=== PATIENT | male | born 1970 | race Caucasian/White ===

== ENCOUNTER 2021-04-03 13:36 | Inpatient (IN) | payer OTHER, SELFPAY ==
[2021-04-03 13:45] VITALS: BP 143/88; PULSE 89; RESP 18; TEMP 36.8; O2SAT 96; BMI 28.1
--- NOTE | 2021-04-03 13:48 | ECG_ITS ---
Test Reason : MED CLEARANCE Blood Pressure : / mmHG Vent. Rate : 069 BPM Atrial Rate : 069 BPM P-R Int : 166 ms QRS Dur : 106 ms QT Int : 388 ms P-R-T Axes : 046 077 067 degrees QTc Int : 415 ms Normal sinus rhythm Incomplete right bundle branch block Borderline ECG No previous ECGs available Referred By: Bianca Gallardo Electronically Signed By:SILVIO JOHNSON
--- NOTE | 2021-04-03 13:52 | ED_ITS ---
HPI - Psych General Chief Complaint: Psychiatric Symptoms <Bianca Gallardo NP - Last Filed: 04/03/21 17:34> Stated Complaint: crisis <Bianca Gallardo NP - Last Filed: 04/03/21 17:34> Time Seen by Provider: 04/03/21 13:41 <Bianca Gallardo NP - Last Filed: 04/03/21 17:34> Source: patient <Bianca Gallardo NP - Last Filed: 04/03/21 17:34> Mode of arrival: ambulatory <Bianca Gallardo NP - Last Filed: 04/03/21 17:34> Limitations: no limitations <Bianca Gallardo NP - Last Filed: 04/03/21 17:34> History of Present Illness HPI Narrative: 51-year-old male with history of anxiety, depression, PTSD, hypertension, hypothyroidism here with reports of suicidal thoughts and depression. Patient tells me is a longstanding history of major depression disorder. Patient tells me for the last month he has had increasing symptoms and has been feeling suicidal during this time. He reports a plan but will not tell me what this is. He denies any homicidal ideations, hallucinations. He has a former history of substance abuse but is not currently using. He does smoke cigarettes daily. No physical complaints. He received Moderna vaccine x3 <Bianca Gallardo NP - Last Filed: 04/03/21 17:34> Related Data Home Medications: Home Medications Medication Instructions Recorded Confirmed aripiprazole 15 mg tablet 15 mg PO DAILY 04/03/21 04/03/21 clonidine HCl 0.1 mg tablet 1 tab PO BEDTIME 04/03/21 04/03/21 gabapentin 400 mg capsule 1 cap PO TID 04/03/21 04/03/21 levothyroxine 150 mcg tablet 150 mcg PO DAILY@0600 04/03/21 04/03/21 lisinopril 5 mg tablet 1 tab PO DAILY 04/03/21 04/03/21 lorazepam 0.5 mg tablet 1 tab PO TID PRN 04/03/21 04/03/21 omeprazole 20 mg capsule,delayed 1 cap PO BID 04/03/21 04/03/21 release prazosin 1 mg capsule 2 mg PO BEDTIME 04/03/21 04/03/21 prazosin 5 mg capsule 5 mg PO BEDTIME 04/03/21 04/03/21 sildenafil 100 mg tablet 1 tab PO DAILY PRN 04/03/21 04/03/21 tamsulosin 0.4 mg capsule 2 cap PO BEDTIME 04/03/21 04/03/21 trazodone 100 mg tablet 150 mg PO BEDTIME 04/03/21 04/03/21 venlafaxine 150 mg 150 mg PO DAILY 04/03/21 04/03/21 capsule,extended release 24 hr venlafaxine 37.5 mg 37.5 mg PO DAILY 04/03/21 04/03/21 tablet,extended release 24 hr <Bianca Gallardo NP - Last Filed: 04/03/21 17:34> Allergies/Adverse Reactions: Allergies Allergy/AdvReac Type Severity Reaction Status Date / Time Unable to Assess Allergy Verified 04/03/21 13:47 <Bianca Gallardo NP - Last Filed: 04/03/21 17:34> Review of Systems Verdana 4l Review of Systems: Verdana 4d Yes all other systems are reviewed and are negative Verdana 4Il <Bianca Gallardo NP - Last Filed: 04/03/21 17:34> Verdana 4d Verdana 4l Constitutional: Verdana 4d Verdana 4d Constitutional: Verdana 4d Reports no additional constitutional complaints, Denies body ache(s), Denies chills, Denies fever(s), Denies headache(s) and Denies weakness Verdana 4Il <Bianca Gallardo NP - Last Filed: 04/03/21 17:34> VerdanaVerdana 4d Eyes: Eyes: Reports no additional eye complaints and Denies change in vision <Bianca Gallardo NP - Last Filed: 04/03/21 17:34> ENT: Reports system reviewed and no additional complaints, except as documented, Denies dizziness, Denies headache(s), Denies nasal congestion, Denies nasal discharge and Denies neck pain <Bianca Gallardo NP - Last Filed: 04/03/21 17:34> Cardiovascular: Cardiovascular: Reports no additional cardiovascular complaints, Denies chest pain, Denies leg edema and Denies dyspnea <Bianca Gallardo NP - Last Filed: 04/03/21 17:34> Respiratory: Respiratory: Reports no additional respiratory complaints, Denies cough and Denies dyspnea <Bianca Gallardo NP - Last Filed: 04/03/21 17:34> Gastrointestinal: Gastrointestinal: Reports no additional gastrointestinal complaints, Denies abdominal pain, Denies diarrhea, Denies nausea and Denies vomiting <Bianca Gallardo NP - Last Filed: 04/03/21 17:34> Genitourinary: Genitourinary: Denies urinary incontinence <Bianca Gallardo NP - Last Filed: 04/03/21 17:34> Musculoskeletal: Musculoskeletal: Reports no additional musculoskeletal complaints, Denies back pain, Denies arthralgias, Denies joint swelling, Denies neck pain, Denies numbness and Denies tingling <Bianca Gallardo NP - Last Filed: 04/03/21 17:34> Integumentary/Breasts: Skin/Breast: Reports system reviewed and no additional complaints, except as doc u and Denies rash <Bianca Gallardo NP - Last Filed: 04/03/21 17:34> Neurologic: Reports system reviewed and no additional complaints, except as documented, Denies Abnormal speech present, Denies dizziness, Denies headache(s), Denies numbness, Denies tingling and Denies weakness <Bianca Gallardo NP - Last Filed: 04/03/21 17:34> Psychiatric: Psychiatric: Reports depression and Reports suicidal ideation <Bianca Gallardo NP - Last Filed: 04/03/21 17:34> [facility] Past Medical History Attestation statement: The following information was validated with the patient. <Bianca Gallardo NP - Last Filed: 04/03/21 17:34> Source: old records reviewed and nursing notes reviewed <Bianca Gallardo NP - Last Filed: 04/03/21 17:34> Medical History: Medical History Anxiety Depression Hypertension Hypothyroidism PTSD (post-traumatic stress disorder) <Bianca Gallardo NP - Last Filed: 04/03/21 17:34> Social History Social History: Social History Advance Directives: No Advance Directives Information Provided: Yes Healthcare Proxy: No Guardian: No <Bianca Gallardo NP - Last Filed: 04/03/21 17:34> Physical Exam Verdana 4l Vital Signs: Verdana 4d Verdana 4d Vital Signs: Verdana 4d Verdana 4Bd Last Vital Signs Verdana 4d Pharmacology Teacher New 4d Pharmacology Teacher New 4d Temp 97.6 F 04/04/21 08:01 Pharmacology Teacher New 4d Pulse 74 04/04/21 08:01 Pharmacology Teacher New 4d Resp 13 04/04/21 08:01 BP 113/78 04/04/21 08:01 Pulse Ox 98 04/04/21 08:01 BMI result Body Mass Index 28.1 <Bianca Gallardo NP - Last Filed: 04/03/21 17:34> Vital Signs: Last Vital Signs Temp 97.6 F 04/04/21 08:01 Pulse 74 04/04/21 08:01 Resp 13 04/04/21 08:01 BP 113/78 04/04/21 08:01 Pulse Ox 98 04/04/21 08:01 BMI result Body Mass Index 28.1 <CECILY Mott - Last Filed: 04/04/21 09:19> Const: General: cooperative, healthy appearing, comfortable and no acute distress <Bianca Gallardo NP - Last Filed: 04/03/21 17:34> Orientation/consciousness: patient oriented x3 <Bianca Gallardo NP - Last Filed: 04/03/21 17:34> Limitations: no limitations <Bianca Gallardo NP - Last Filed: 04/03/21 17:34> HENMT: Head: Yes normal to inspection <Bianca Gallardo NP - Last Filed: 04/03/21 17:34> Ears: hearing grossly normal bilaterally <Bianca Gallardo NP - Last Filed: 04/03/21 17:34> General nose exam: Normal external nose present <Bianca Gallardo NP - Last Filed: 04/03/21 17:34> Face and sinus: Yes normal facial exam <Bianca Gallardo NP - Last Filed: 04/03/21 17:34> Mouth: Normal oral and palatal mucosa present <Bianca Gallardo NP - Last Filed: 04/03/21 17:34> Throat: Yes posterior oropharynx normal <Bianca Gallardo NP - Last Filed: 04/03/21 17:34> Eyes: General: appearance normal, both eyes and all related structures <Bianca Gallardo NP - Last Filed: 04/03/21 17:34> Pupils: Equal, round and reactive pupils present <Bianca Gallardo NP - Last Filed: 04/03/21 17:34> Neck: Neck: Yes normal visual inspection <Bianca Gallardo NP - Last Filed: 04/03/21 17:34> Chest: Chest palpation & inspection: normal inspection of the chest <Bianca Gallardo NP - Last Filed: 04/03/21 17:34> Resp: Effort & Inspection: normal respiratory effort <Bianca Gallardo NP - Last Filed: 04/03/21 17:34> Auscultation: clear to auscultation bilaterally <Bianca Gallardo NP - Last Filed: 04/03/21 17:34> Cardio: Rate: regular rate <Bianca Gallardo NP - Last Filed: 04/03/21 17:34> Rhythm: regular rhythm <Bianca Gallardo NP - Last Filed: 04/03/21 17:34> Peripheral pulses: Peripheral pulses 2+ throughout <Bianca Gallardo NP - Last Filed: 04/03/21 17:34> GI: Inspection: Yes normal to inspection <Bianca Gallardo NP - Last Filed: 04/03/21 17:34> Palpation (GI): Soft to palpation and nontender <Bianca Gallardo NP - Last Filed: 04/03/21 17:34> Auscultation: normal bowel sounds <Bianca Gallardo NP - Last Filed: 04/03/21 17:34> Back/Spine/Pelvis: Thoracic/Lumbar Spine: thoracic and lumbar spine normal to inspection <Bianca Gallardo NP - Last Filed: 04/03/21 17:34> Skin: General skin exam: no rashes or lesions noted <Bianca Gallardo NP - Last Filed: 04/03/21 17:34> Neuro: General: patient oriented x3, no focal motor deficits and normal sensation to monofilament <Bianca Gallardo NP - Last Filed: 04/03/21 17:34> Cranial nerves: Yes CN's II-XII intact bilaterally and Yes Equal, round and reactive pupils present <Bianca Gallardo NP - Last Filed: 04/03/21 17:34> Cognition (Neuro): normal cognition <Bianca Gallardo NP - Last Filed: 04/03/21 17:34> Speech: No Abnormal speech present <Bianca Gallardo NP - Last Filed: 04/03/21 17:34> Gait exam (Neuro): Normal gait present <Bianca Gallardo NP - Last Filed: 04/03/21 17:34> Motor exam (neuro): 5/5 motor strength present throughout <Bianca Gallardo NP - Last Filed: 04/03/21 17:34> Extrem: General: Yes normal to inspection <Bianca Gallarod NP - Last Filed: 04/03/21 17:34> Course Course Course Narrative: 51-year-old male here with reports of depression, suicidal thoughts with a plan. Per patient he was an outpatient appointment for a a evaluation to start ECT therapy. He was sent to the ER after reporting suicidal ideations. No physical complaints. No concern for acute ingestion or trauma. Will check labs, drug screen 1800-Sign out to night team pending [facility] evaluation. <Bianca Gallardo NP - Last Filed: 04/03/21 17:34> Reevaluation(s) Reevaluation #1: Vital signs are stable. Phsycian observation continued. patient is a section 12 and bedsearch. <CECILY Mott - Last Filed: 04/04/21 09:19> Time: 09:19 <CECILY Mott - Last Filed: 04/04/21 09:19> MDM - Psych Medical Records Attestation: I reviewed the patient's medical records. <Bianca Gallardo NP - Last Filed: 04/03/21 17:34> Lab Data Attestation: I reviewed the patient's lab results. <Bianca Gallardo NP - Last Filed: 04/03/21 17:34> Result diagrams: : 04/03/21 14:24 04/03/21 14:25 <Bianca Gallardo NP - Last Filed: 04/03/21 17:34> Labs: Lab Results 04/03/21 04/03/21 04/03/21 Range/Units 14:24 14:24 14:25 WBC 7.4 (4.8-10.8) X10*3/uL RBC 5.46 (4.60-5.80) X10*6/uL Hgb 17.7 (14.0-18.0) g/dl Hct 51.9 (42.0-52.0) % MCV 95.1 (80.0-98.0) fL MCH 32.4 (27.0-33.0) pg MCHC 34.1 (31.0-36.0) g/dl RDW 13.0 (11.0-16.0) % Plt Count 181 (160-400) X10*3/uL MPV 9.9 (9.4-12.4) fL Immature Gran % (Auto) 0.4 (0.0-0.4) % Neut % (Auto) 48.2 (45-73) % Lymph % (Auto) 45.0 H (20-40) % [place] % (Auto) 5.9 (2-11) % Eos % (Auto) 0.1 (0-4) % Baso % (Auto) 0.4 (0-2) % Lymph # (Auto) 3.3 (1.2-4.9) X10*3/uL [place] # (Auto) 0.4 (0.1-1.2) X10*3/uL Eos # (Auto) 0.0 (0.0-0.4) X10*3/uL Baso # (Auto) 0.0 (0.0-0.2) X10*3/uL Abs Immat Gran (auto) 0.03 (0.00-0.03) X10*3/uL Absolute Neuts (auto) 3.5 (2.0-8.3) x10*3/uL Absolute Nucleated RBC 0.000 (0.0-0.012) X10*3/uL Nucleated RBC % (auto) 0.0 (0.0-0.2) /100WBC Sodium 139 (135-145) mmol/L Potassium 4.1 (3.3-5.1) mmol/L Chloride 107 (96-108) mmol/L Carbon Dioxide 25 (22-29) mmol/L Anion Gap 11 L (12-20) BUN 12 (9-16) mg/dL Creatinine 1.04 (0.5-1.4) mg/dL Estim Creat Clear Calc 88.6 Estimated GFR > 60 Random Glucose 194 H (60-115) mg/dL Calcium 9.2 (8.4-10.2) mg/dL Total Bilirubin 0.3 (0.0-1.0) mg/dL Direct Bilirubin < 0.2 (0.0-0.5) mg/dL AST 27 (5-37) U/L ALT 63 H (0-40) U/L Alkaline Phosphatase 96 (39-117) U/L Total Protein 6.9 (6.5-8.0) g/dL Albumin 4.2 (3.5-5.0) g/dL Salicylates < 5.0 L (15-30) mg/dL Urine Opiates Screen (Not Detect) Urine Fentanyl Screen (Not Detect) Acetaminophen < 1 (<30) mcg/mL Ur Barbiturates Screen (Not Detect) Ur Phencyclidine Scrn (Not Detect) Ur Amphetamines Screen (Not Detect) U Benzodiazepines Scrn (Not Detect) Urine Cocaine Screen (Not Detect) U Marijuana (THC) Screen (Not Detect) Ethyl Alcohol < 10 mg/dL COVID-19 ([facility]) (Negative) COVID-19 Clin Com 04/03/21 04/03/21 Range/Units 14:25 14:27 WBC (4.8-10.8) X10*3/uL RBC (4.60-5.80) X10*6/uL Hgb (14.0-18.0) g/dl Hct (42.0-52.0) % MCV (80.0-98.0) fL MCH (27.0-33.0) pg MCHC (31.0-36.0) g/dl RDW (11.0-16.0) % Plt Count (160-400) X10*3/uL MPV (9.4-12.4) fL Immature Gran % (Auto) (0.0-0.4) % Neut % (Auto) (45-73) % Lymph % (Auto) (20-40) % [place] % (Auto) (2-11) % Eos % (Auto) (0-4) % Baso % (Auto) (0-2) % Lymph # (Auto) (1.2-4.9) X10*3/uL [place] # (Auto) (0.1-1.2) X10*3/uL Eos # (Auto) (0.0-0.4) X10*3/uL Baso # (Auto) (0.0-0.2) X10*3/uL Abs Immat Gran (auto) (0.00-0.03) X10*3/uL Absolute Neuts (auto) (2.0-8.3) x10*3/uL Absolute Nucleated RBC (0.0-0.012) X10*3/uL Nucleated RBC % (auto) (0.0-0.2) /100WBC Sodium (135-145) mmol/L Potassium (3.3-5.1) mmol/L Chloride (96-108) mmol/L Carbon Dioxide (22-29) mmol/L Anion Gap (12-20) BUN (9-16) mg/dL Creatinine (0.5-1.4) mg/dL Estim Creat Clear Calc Estimated GFR Random Glucose (60-115) mg/dL Calcium (8.4-10.2) mg/dL Total Bilirubin (0.0-1.0) mg/dL Direct Bilirubin (0.0-0.5) mg/dL AST (5-37) U/L ALT (0-40) U/L Alkaline Phosphatase (39-117) U/L Total Protein (6.5-8.0) g/dL Albumin (3.5-5.0) g/dL Salicylates (15-30) mg/dL Urine Opiates Screen Not Detected (Not Detect) Urine Fentanyl Screen POSITIVE H (Not Detect) Acetaminophen (<30) mcg/mL Ur Barbiturates Screen Not Detected (Not Detect) Ur Phencyclidine Scrn Not Detected (Not Detect) Ur Amphetamines Screen Not Detected (Not Detect) U Benzodiazepines Scrn Not Detected (Not Detect) Urine Cocaine Screen Not Detected (Not Detect) U Marijuana (THC) Screen POSITIVE H (Not Detect) Ethyl Alcohol mg/dL COVID-19 ([facility]) Negative (Negative) COVID-19 Clin Com See Note <Bianca Gallardo NP - Last Filed: 04/03/21 17:34> Lab Results 04/03/21 04/03/21 04/03/21 Range/Units 14:24 14:24 14:25 WBC 7.4 (4.8-10.8) X10*3/uL RBC 5.46 (4.60-5.80) X10*6/uL Hgb 17.7 (14.0-18.0) g/dl Hct 51.9 (42.0-52.0) % MCV 95.1 (80.0-98.0) fL MCH 32.4 (27.0-33.0) pg MCHC 34.1 (31.0-36.0) g/dl RDW 13.0 (11.0-16.0) % Plt Count 181 (160-400) X10*3/uL MPV 9.9 (9.4-12.4) fL Immature Gran % (Auto) 0.4 (0.0-0.4) % Neut % (Auto) 48.2 (45-73) % Lymph % (Auto) 45.0 H (20-40) % [place] % (Auto) 5.9 (2-11) % Eos % (Auto) 0.1 (0-4) % Baso % (Auto) 0.4 (0-2) % Lymph # (Auto) 3.3 (1.2-4.9) X10*3/uL [place] # (Auto) 0.4 (0.1-1.2) X10*3/uL Eos # (Auto) 0.0 (0.0-0.4) X10*3/uL Baso # (Auto) 0.0 (0.0-0.2) X10*3/uL Abs Immat Gran (auto) 0.03 (0.00-0.03) X10*3/uL Absolute Neuts (auto) 3.5 (2.0-8.3) x10*3/uL Absolute Nucleated RBC 0.000 (0.0-0.012) X10*3/uL Nucleated RBC % (auto) 0.0 (0.0-0.2) /100WBC Sodium 139 (135-145) mmol/L Potassium 4.1 (3.3-5.1) mmol/L Chloride 107 (96-108) mmol/L Carbon Dioxide 25 (22-29) mmol/L Anion Gap 11 L (12-20) BUN 12 (9-16) mg/dL Creatinine 1.04 (0.5-1.4) mg/dL Estim Creat Clear Calc 88.6 Estimated GFR > 60 Random Glucose 194 H (60-115) mg/dL Calcium 9.2 (8.4-10.2) mg/dL Total Bilirubin 0.3 (0.0-1.0) mg/dL Direct Bilirubin < 0.2 (0.0-0.5) mg/dL AST 27 (5-37) U/L ALT 63 H (0-40) U/L Alkaline Phosphatase 96 (39-117) U/L Total Protein 6.9 (6.5-8.0) g/dL Albumin 4.2 (3.5-5.0) g/dL Salicylates < 5.0 L (15-30) mg/dL Urine Opiates Screen (Not Detect) Urine Fentanyl Screen (Not Detect) Acetaminophen < 1 (<30) mcg/mL Ur Barbiturates Screen (Not Detect) Ur Phencyclidine Scrn (Not Detect) Ur Amphetamines Screen (Not Detect) U Benzodiazepines Scrn (Not Detect) Urine Cocaine Screen (Not Detect) U Marijuana (THC) Screen (Not Detect) Ethyl Alcohol < 10 mg/dL COVID-19 ([facility]) (Negative) COVID-19 Clin Com 04/03/21 04/03/21 Range/Units 14:25 14:27 WBC (4.8-10.8) X10*3/uL RBC (4.60-5.80) X10*6/uL Hgb (14.0-18.0) g/dl Hct (42.0-52.0) % MCV (80.0-98.0) fL MCH (27.0-33.0) pg MCHC (31.0-36.0) g/dl RDW (11.0-16.0) % Plt Count (160-400) X10*3/uL MPV (9.4-12.4) fL Immature Gran % (Auto) (0.0-0.4) % Neut % (Auto) (45-73) % Lymph % (Auto) (20-40) % [place] % (Auto) (2-11) % Eos % (Auto) (0-4) % Baso % (Auto) (0-2) % Lymph # (Auto) (1.2-4.9) X10*3/uL [place] # (Auto) (0.1-1.2) X10*3/uL Eos # (Auto) (0.0-0.4) X10*3/uL Baso # (Auto) (0.0-0.2) X10*3/uL Abs Immat Gran (auto) (0.00-0.03) X10*3/uL Absolute Neuts (auto) (2.0-8.3) x10*3/uL Absolute Nucleated RBC (0.0-0.012) X10*3/uL Nucleated RBC % (auto) (0.0-0.2) /100WBC Sodium (135-145) mmol/L Potassium (3.3-5.1) mmol/L Chloride (96-108) mmol/L Carbon Dioxide (22-29) mmol/L Anion Gap (12-20) BUN (9-16) mg/dL Creatinine (0.5-1.4) mg/dL Estim Creat Clear Calc Estimated GFR Random Glucose (60-115) mg/dL Calcium (8.4-10.2) mg/dL Total Bilirubin (0.0-1.0) mg/dL Direct Bilirubin (0.0-0.5) mg/dL AST (5-37) U/L ALT (0-40) U/L Alkaline Phosphatase (39-117) U/L Total Protein (6.5-8.0) g/dL Albumin (3.5-5.0) g/dL Salicylates (15-30) mg/dL Urine Opiates Screen Not Detected (Not Detect) Urine Fentanyl Screen POSITIVE H (Not Detect) Acetaminophen (<30) mcg/mL Ur Barbiturates Screen Not Detected (Not Detect) Ur Phencyclidine Scrn Not Detected (Not Detect) Ur Amphetamines Screen Not Detected (Not Detect) U Benzodiazepines Scrn Not Detected (Not Detect) Urine Cocaine Screen Not Detected (Not Detect) U Marijuana (THC) Screen POSITIVE H (Not Detect) Ethyl Alcohol mg/dL COVID-19 ([facility]) Negative (Negative) COVID-19 Clin Com See Note <CECILY Mott - Last Filed: 04/04/21 09:19> ECG Data Attestation: I personally reviewed and interpreted this ECG as follows: <Bianca Gallardo NP - Last Filed: 04/03/21 17:34> ECG interpretation date: 04/03/21 <Bianca Gallardo NP - Last Filed: 04/03/21 17:34> ECG interpretation time: 14:47 <Bianca Gallardo NP - Last Filed: 04/03/21 17:34> Interpretation: Normal sinus rhythm with a rate of 69, normal UT, normal QRS, normal QT <Bianca Gallardo NP - Last Filed: 04/03/21 17:34> Discharge Plan Discharge Clinical Impression: Acute post-traumatic stress disorder, Depression <Bianca Gallardo NP - Last Filed: 04/03/21 17:34> Patient Disposition: Still a Patient <Bianca Gallardo NP - Last Filed: 04/03/21 17:34> Prescriptions: No Action clonidine HCl 0.1 mg tablet 1 tab PO BEDTIME 0RF prazosin 1 mg capsule 2 mg PO BEDTIME 0RF gabapentin 400 mg capsule 1 cap PO TID 0RF venlafaxine 150 mg Capsule,Extended Release 24hr 150 mg PO DAILY 0RF sildenafil 100 mg tablet 1 tab PO DAILY PRN (Reason: Sexual Activity) 0RF prazosin 5 mg capsule 5 mg PO BEDTIME 0RF lorazepam 0.5 mg tablet 1 tab PO TID PRN (Reason: Anxiety) 0RF tamsulosin 0.4 mg capsule 2 cap PO BEDTIME 0RF trazodone 100 mg tablet 150 mg PO BEDTIME 0RF levothyroxine 150 mcg Tablet 150 mcg PO DAILY@0600 0RF lisinopril 5 mg tablet 1 tab PO DAILY 0RF aripiprazole 15 mg tablet 15 mg PO DAILY 0RF venlafaxine 37.5 mg Tablet Extended Release 24hr 37.5 mg PO DAILY 0RF omeprazole 20 mg capsule,delayed release(DR/EC) 1 cap PO BID 0RF <Bianca Gallardo, UNIT RECEPTIONIST - Last Filed: 04/03/21 17:34>
[2021-04-03] MEDS: Nicotine 21 MG PATCH.TD24 TRANSDERMA (13:57)
[2021-04-03 14:34] LABS: MANUAL DIFF FLAG NO
[2021-04-03 14:38] LABS: Basophils Percent Auto 0.4 % (0-2); Eosinophils Percent Auto 0.1 % (0-4); Hematocrit 51.9 % (42.0-52.0); Hemoglobin 17.7 g/dl (14.0-18.0); Imm Gran Abs Auto 0.03 X10*3/uL (0.00-0.03); Imm Gran Pct Auto 0.4 % (0.0-0.4); Lymphocytes Absolute Auto 3.3 X10*3/uL (1.2-4.9); Mean Corpuscular HGB Conc 34.1 g/dl (31.0-36.0); Mean Corpuscular Hemoglobin 32.4 pg (27.0-33.0); Mean Corpuscular Volume 95.1 fL (80.0-98.0); Mean Platelet Volume 9.9 fL (9.4-12.4); Monocytes Absolute Auto 0.4 X10*3/uL (0.1-1.2); Monocytes Percent Auto 5.9 % (2-11); Neutrophils Absolute Auto 3.5 x10*3/uL (2.0-8.3); Neutrophils Percent Auto 48.2 % (45-73); Platelet Count 181 X10*3/uL (160-400); Red Blood Count 5.46 X10*6/uL (4.60-5.80); White Blood Count 7.4 X10*3/uL (4.8-10.8)
--- NOTE | 2021-04-03 14:47 | PHA.MEDREC ---
Pharmacy Consult ? Medication Reconciliation Pharmacy has completed the medication reconciliation. Patient reported all medications. Per claim history, prazosin 5 mg was only included but reports he take 2 mg in addition. Venlafaxine 75 mg was last filled in december he reports he takes 37.3 mg + 150 mg. History does not have levothyroxine but patient reported use. [facility] does not always show medications on claim history. Alina Lakhani, PharmD
[2021-04-03 14:52] LABS: Ethanol < 10 mg/dL
[2021-04-03 14:55] LABS: Amphetamine Screen Urine Not Detected (Not Detect); Barbiturates, Urine Not Detected (Not Detect); Benzodiazepines Screen Urine Not Detected (Not Detect); Cannabinoid Screen Urine POSITIVE (Not Detect); Cocaine Screen Urine Not Detected (Not Detect); Fentanyl, urine POSITIVE (Not Detect); Opiate Screen Urine Not Detected (Not Detect); Phencyclidine Screen Urine Not Detected (Not Detect)
[2021-04-03 14:55] LABS: COVID-19 Test Negative (Negative)
[2021-04-03 15:07] LABS: Acetaminophen LAB < 1 mcg/mL (<30); Alanine Aminotransferase 63 U/L (0-40); Albumin Level 4.2 g/dL (3.5-5.0); Alkaline Phosphatase 96 U/L (39-117); Anion Gap 11 (12-20); Aspartate Amino Transferase 27 U/L (5-37); Bilirubin Direct < 0.2 mg/dL (0.0-0.5); Bilirubin Total 0.3 mg/dL (0.0-1.0); Blood Urea Nitrogen 12 mg/dL (9-16); Calcium 9.2 mg/dL (8.4-10.2); Carbon Dioxide 25 mmol/L (22-29); Chloride 107 mmol/L (96-108); Creatinine Clr Calc Pharmacy 88.6; Estimated Glomerular Filt Rate > 60; Glucose Random 194 mg/dL (60-115); Potassium 4.1 mmol/L (3.3-5.1); Sodium 139 mmol/L (135-145); Total Protein 6.9 g/dL (6.5-8.0)
[2021-04-03 15:20] LABS: Salicylate < 5.0 mg/dL (15-30)
[2021-04-03 19:25] VITALS: BP 122/83; PULSE 82; RESP 17; TEMP 36.2; O2SAT 98
[2021-04-03] MEDS: LORazepam 0.5 MG TABLET PO (23:16)
[2021-04-03] MEDS: traZODone HCL 50 MG TABLET 150 MG PO (23:16)
[2021-04-03] MEDS: Tamsulosin HCL 0.4 MG CAPSULE 0.8 MG PO (23:16)
[2021-04-03] MEDS: cloNIDine HCL 0.1 MG TABLET PO (23:16)
[2021-04-03] MEDS: Prazosin HCL 1 MG CAPSULE 2 MG PO (23:17)
[2021-04-03] MEDS: Prazosin HCL 5 MG CAPSULE PO (23:17)
[2021-04-03 23:19] VITALS: BP 121/92; PULSE 63; RESP 16; TEMP 36.9; O2SAT 96
--- NOTE | 2021-04-04 05:18 | PC.NURSE ---
Patient slept through the night, no distress observed/reported, behavior appropriate and cooperative, medication compliant, patient's disposition per Care team is section 12 inpatient bed search, VSS, will continue to monitor.
[2021-04-04] MEDS: Levothyroxine Sodium 150 MCG TABLET PO (06:18)
--- NOTE | 2021-04-04 07:06 | PC.NURSE ---
patient awake upon t/w's arrival to shift, watching television and relaxing appears in no distress
[2021-04-04 08:01] VITALS: BP 113/78; PULSE 74; RESP 13; TEMP 36.4; O2SAT 98
[2021-04-04] MEDS: Omeprazole 20 MG CAPSULE.DR PO ×2 (10:17→20:43)
[2021-04-04] MEDS: Venlafaxine HCl ER 37.5 MG CAP.ER.24H PO (10:17)
[2021-04-04] MEDS: ARIPiprazole 15 MG TABLET PO (10:17)
[2021-04-04] MEDS: lisinopriL 5 MG TABLET PO (10:17)
[2021-04-04] MEDS: Gabapentin 400 MG CAPSULE PO ×3 (10:18→20:42)
[2021-04-04] MEDS: Venlafaxine HCl ER 150 MG CAP.ER.24H PO (10:18)
[2021-04-04 11:18] LABS: COVID-19 Test Negative (Negative)
--- NOTE | 2021-04-04 13:28 | MHC.CARE ---
Patient ambivalent about inpatient admission, asked to speak to someone about going home instead. CARE rail crew member sat with patient in 1 to discuss his concerns, offered supportive listening and encouragement, gave him some specific information about the unit (groups, roommates, his treatment team), has only been to [facility] in the past. Apparently the POD was acute last night and this was unsettling, he acknowledged that nothing has changed in his personal situation, he is still quite depressed and hopeless. Patient verbalized an understanding that at this time this is the best plan and he is open to admission, will sign in voluntarily.
--- NOTE | 2021-04-04 19:02 | PC.ADMIT ---
Pt is a 51 year old male who presents to M5 from [facility] at approx 1625 on a cv status. Pt is covid -. Utox screen + for fentanyl, and THC. EKG normal sinus rhythm, Inc R bundle block. Per chart review, pt was assessed by CARE team after being sent to the ED due to suicidal statements made in an outpatient appoinment with psychiatry. Pt is at high risk and has a hx of past suicide attempts, lots of plans to commit sucude, and feels like he cannot live like this. During admit pt had a flat affect, denied any SI/SIB/SI/HI/VH/AH. Pt reported high anxiety and depression. Pt mentioned that lives with his , children and four dogs. Pt has hx of outpt services in the community. Provider called and notified for orders and notified of admission. Start treatment plan and monitor for safety.
[2021-04-04 20:25] VITALS: BP 133/78; PULSE 78
[2021-04-04] MEDS: Tamsulosin HCL 0.4 MG CAPSULE 0.8 MG PO (20:42)
[2021-04-04] MEDS: cloNIDine HCL 0.1 MG TABLET PO (20:42)
[2021-04-04] MEDS: traZODone HCL 50 MG TABLET 150 MG PO (20:42)
[2021-04-04] MEDS: Prazosin HCL 1 MG CAPSULE 2 MG PO (20:43)
[2021-04-04] MEDS: Prazosin HCL 5 MG CAPSULE PO (20:43)
[2021-04-05 06:00] VITALS: BP 121/78; PULSE 69; TEMP 36.1; O2SAT 95
[2021-04-05] MEDS: Levothyroxine Sodium 75 MCG TABLET 150 MCG PO (06:02)
[2021-04-05] MEDS: Gabapentin 400 MG CAPSULE PO (08:43)
[2021-04-05] MEDS: ARIPiprazole 15 MG TABLET PO (08:43)
[2021-04-05] MEDS: Venlafaxine HCl ER 150 MG CAP.ER.24H PO (08:43)
[2021-04-05] MEDS: Venlafaxine HCl ER 37.5 MG CAP.ER.24H PO (08:43)
[2021-04-05] MEDS: lisinopriL 5 MG TABLET PO (08:43)
[2021-04-05] MEDS: Omeprazole 20 MG CAPSULE.DR PO ×2 (08:43→20:26)
[2021-04-05 09:11] LABS: Estimated Average Glucose 160 mg/dL; Hemoglobin A1c % 7.2 %
[2021-04-05 09:43] LABS: Cholesterol 182 mg/dL; HDL Cholesterol 30 mg/dL; LDL Cholesterol Calculated 110 mg/dl; Triglycerides 211 mg/dL
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
[2021-04-05] MEDS: Gabapentin 100 MG CAPSULE PO ×2 (16:28→20:26)
[2021-04-05 20:18] VITALS: BP 126/71; PULSE 85; RESP 16; TEMP 37.1
[2021-04-05] MEDS: traZODone HCL 50 MG TABLET 150 MG PO (20:26)
[2021-04-05] MEDS: Prazosin HCL 1 MG CAPSULE 2 MG PO (20:26)
[2021-04-05] MEDS: Prazosin HCL 5 MG CAPSULE PO (20:26)
[2021-04-05] MEDS: cloNIDine HCL 0.1 MG TABLET PO (20:26)
[2021-04-05] MEDS: Tamsulosin HCL 0.4 MG CAPSULE 0.8 MG PO (20:27)
[2021-04-05 22:46] LABS: Glucose, Whole Blood 192 mg/dL (60-115)
[2021-04-06] MEDS: Levothyroxine Sodium 75 MCG TABLET 150 MCG PO (05:23)
[2021-04-06 05:43] LABS: Glucose, Whole Blood 145 mg/dL (60-115)
[2021-04-06 06:00] VITALS: BP 121/74; PULSE 71; RESP 16; O2SAT 95
[2021-04-06] MEDS: hydrOXYzine HCL 25 MG TABLET PO ×2 (06:10→18:23)
[2021-04-06] MEDS: ARIPiprazole 10 MG TABLET PO (08:26)
[2021-04-06] MEDS: Venlafaxine HCl ER 150 MG CAP.ER.24H PO (08:26)
[2021-04-06] MEDS: Omeprazole 20 MG CAPSULE.DR PO ×2 (08:26→22:39)
[2021-04-06] MEDS: lisinopriL 5 MG TABLET PO (08:26)
[2021-04-06] MEDS: Gabapentin 100 MG CAPSULE PO ×3 (08:26→21:14)
[2021-04-06] MEDS: Nicotine 21 MG PATCH.TD24 TRANSDERMA (08:40)
[2021-04-06] MEDS: Nicotine Polacrilex 2 MG GUM 4 MG BUCCAL (14:34)
--- NOTE | 2021-04-06 14:50 | PC.NURSE ---
Pt participated in MOCA screen on 04/06/2021 prior to ECT tomorrow. The pt scored 28/30, indicating cognition is within normal limits. 1 point was added to score given that pt highest level of education was grade 12.
--- NOTE | 2021-04-06 15:13 | PM.EVENT ---
Event Note Date of Service: 04/06/21 Event Note: 51-year-old gentleman with past medical history of anxiety depression PTSD, hypothyroidism and hypertension admitted to [place] psychiatric unit for suicidal thoughts and depression now planned to undergo ECT patient denies chest pain, no shortness of breath, no palpitation, no prior history of heart disease, he denies any recent episodes of headache, lightheadedness, dizziness, no history of head trauma, or stroke. denies nausea vomiting, no history of bleeding disorders on examination patient awake alert in no distress neck is supple lungs clear to auscultation heart regular, rate, rhythm extremities no edema neuro nonfocal EKG showed normal sinus rhythm with incomplete right bundle-branch block, electrolytes are stable, normal renal function, mildly elevated ALT 63 ECT clearance may proceed with planned ECT no contraindications at this time, no further workup warranted.
[2021-04-06 18:00] VITALS: BP 135/89; PULSE 99; RESP 18; TEMP 36.6; O2SAT 96
[2021-04-06 19:37] LABS: Glucose, Whole Blood 190 mg/dL (60-115)
[2021-04-06] MEDS: traZODone HCL 50 MG TABLET 150 MG PO (21:09)
[2021-04-06] MEDS: Tamsulosin HCL 0.4 MG CAPSULE 0.8 MG PO (21:10)
[2021-04-06] MEDS: cloNIDine HCL 0.1 MG TABLET PO (21:13)
[2021-04-06] MEDS: Prazosin HCL 5 MG CAPSULE PO (21:14)
[2021-04-06] MEDS: Prazosin HCL 1 MG CAPSULE 2 MG PO (21:15)
--- NOTE | 2021-04-06 21:53 | P.PNPSI_ITS ---
Subjective Subjective Date of Service: 04/06/21 Reason For Visit: Depression,SI Subjective Notes: Conditional Voluntary Guardianship: No Interim History: pt depressed anxious dealing with issues related to recent emotional affair. Patient continues to consent to ECT with history of failed medication trials patient cooperative on the unit not agitated Medication Compliance: Yes Side effects from medications: No Review of Systems Acute medical concerns: Yes increase glu Mental Status Exam Mental Status Exam Narrative: Patient is an anxious-appearing male cooperative to the interview. . His speech is clear goal-directed logical normal [place]. His mood is depressed anxious affect constricted no agitation He is hopeless helpless with thoughts that he would be better off and unclear whether he can maintain his safety thoughts to overdose. No psychotic symptoms he is asking for help. Insight good in that he is asking for help able take in info re c ect Diagnostics Vital Signs (24Hr): Vital Signs - 24 hr 04/06/21 06:00 04/06/21 18:00 Temperature 97.9 F Pulse Rate 71 99 Respiratory Rate 16 18 Blood Pressure 121/74 135/89 Pulse Oximetry 95 96 BMI result Verdana 4 Body Mass Index Verdana 4 28.1 Verdana 4 Verdana 4 Labs Results: 04/03/21 14:24 04/03/21 14:25 Labs: Laboratory Results - last 48 hr 04/05/21 04/05/21 04/05/21 08:17 08:17 22:41 POC Glucose 192 H Estimat Average Glucose 160 Hemoglobin A1c % 7.2 Triglycerides 211 Cholesterol 182 LDL Cholesterol, Calc 110 HDL Cholesterol 30 04/06/21 04/06/21 05:39 19:30 POC Glucose 145 H 190 H Estimat Average Glucose Hemoglobin A1c % Triglycerides Cholesterol LDL Cholesterol, Calc HDL Cholesterol Medications Medications Current Medications Acetaminophen (Acetaminophen 325 Mg Tablet) 650 mg PO Q6H PRN PRN Reason: Headache/Pain Mild Scale (1-3) Al Hydroxide/Mg Hydroxide (Magnesium Hydrox/Alum Hydrox 30 Ml Oral.Susp) 30 ml PO Q6H PRN PRN Reason: Heartburn/Nausea Aripiprazole (Aripiprazole 10 Mg Tablet) 10 mg PO DAILY [facility] Last Admin: 04/06/21 08:26 Dose: 10 mg Documented by: Clonidine HCl (Clonidine Hcl 0.1 Mg Tablet) 0.1 mg PO BEDTIME [facility]; Protocol Last Admin: 04/06/21 21:13 Dose: 0.1 mg Documented by: Gabapentin (Gabapentin 100 Mg Capsule) 100 mg PO TID [facility] Last Admin: 04/06/21 21:14 Dose: 100 mg Documented by: Hydroxyzine HCl (Hydroxyzine Hcl 25 Mg Tablet) 25 mg PO QID PRN PRN Reason: Anxiety Last Admin: 04/06/21 18:23 Dose: 25 mg Documented by: Levothyroxine Sodium (Levothyroxine Sodium 75 Mcg Tablet) 150 mcg PO DAILY@0600 [facility] Last Admin: 04/06/21 05:23 Dose: 150 mcg Documented by: Lisinopril (Lisinopril 5 Mg Tablet) 5 mg PO DAILY [facility]; Protocol Last Admin: 04/06/21 08:26 Dose: 5 mg Documented by: Lorazepam (Lorazepam 0.5 Mg Tablet) 0.5 mg PO TID PRN PRN Reason: Anxiety Last Admin: 04/03/21 23:16 Dose: 0.5 mg Documented by: Magnesium Hydroxide (Milk Of Magnesia 30 Ml Oral.Susp) 30 ml PO DAILY PRN PRN Reason: Constipation Nicotine (Nicotine 21 Mg Patch.Td24) 21 mg TRANSDERMA DAILY PRN PRN Reason: smoking cessation Last Admin: 04/06/21 08:40 Dose: 21 mg Documented by: Nicotine Polacrilex (Nicotine Polacrilex 2 Mg Gum) 4 mg BUCCAL Q2H PRN PRN Reason: Nicotine Cravings Last Admin: 04/06/21 14:34 Dose: 4 mg Documented by: Omeprazole (Omeprazole 20 Mg Capsule.) 20 mg PO BID [facility] Last Admin: 04/06/21 08:26 Dose: 20 mg Documented by: Prazosin HCl (Prazosin Hcl 1 Mg Capsule) 2 mg PO BEDTIME [facility]; Protocol Last Admin: 04/06/21 21:15 Dose: 2 mg Documented by: Prazosin HCl (Prazosin Hcl 5 Mg Capsule) 5 mg PO BEDTIME [facility]; Protocol Last Admin: 04/06/21 21:14 Dose: 5 mg Documented by: Quetiapine Fumarate (Quetiapine Fumarate 25 Mg Tablet) 25 mg PO Q4H PRN PRN Reason: anxiety/restlessness Tamsulosin HCl (Tamsulosin Hcl 0.4 Mg Capsule) 0.8 mg PO BEDTIME [facility] Last Admin: 04/06/21 21:10 Dose: 0.8 mg Documented by: Trazodone HCl (Trazodone Hcl 50 Mg Tablet) 150 mg PO BEDTIME [facility] Last Admin: 04/06/21 21:09 Dose: 150 mg Documented by: Venlafaxine HCl (Venlafaxine Hcl Er 150 Mg Cap.Er.24h) 150 mg PO DAILY [facility] Last Admin: 04/06/21 08:26 Dose: 150 mg Documented by: Allergies Allergies Allergy/AdvReac Type Severity Reaction Status Date / Time NSAIDS AdvReac Severe Shakiness Verified 04/04/21 11:52 (Non-Steroidal Anti-Inflamma aspirin AdvReac Intermediate Shortness Verified 04/04/21 11:52 of Breath bupropion [From AdvReac Intermediate Agitated Verified 04/04/21 11:52 Wellbutrin] Assessment & Plan Assessment & Plan (1) Major depressive disorder, recurrent severe without psychotic features: Status: Acute Code(s): F33.2 - Major depressive disorder, recurrent severe without psychotic features Assessment and Plan: ect in am med eval discussed with hospitalist Case reviewed with nursing staff and social work also discussed medical issues with hospitalist (2) Hyperglycemia: Status: Acute Code(s): R73.9 - Hyperglycemia, unspecified Assessment and Plan: start metformin (3) Chronic post-traumatic stress disorder (PTSD): Status: Acute Code(s): F43.12 - Post-traumatic stress disorder, chronic Assessment and Plan: Continue prazosin grounding tech and techniques relaxation techniques Plan Patient with a history of recurrent depression multiple failed medication trials referred by Brian [facility] his psychiatric provider for ECT. Patient's condition complicated by agitation and suicidality unsafe to be treated home at this time. We did review option to continue to outpatient ECT when more stable. He has been tapering down on Abilify and venlafaxine. History of failed trials of augmentation with Seroquel multiple SSRIs doxepin patient is a candidate for ECT secondary to severe depression acute set suicidality and multiple failed medication trials. History of significant suicide attempts. PHQ-9 was elevated at 24 Medically patient with COPD hypothyroidism and hypertension. Noted to be hyperglycemic elevated hemoglobin A1c may be new diagnosis type 2 diabetes. Will get medical evaluation for ECT call placed to [facility] note reviewed labs and EKG reviewed history of right bundle branch block normal reported stress test. Patient admitted on conditional voluntary 15 minute safety checks will schedule ECT coordinate with the [place] social work for a family contact and intervention I spent _35 minutes with the patient and/or on the patient floor today, greater than?50% of which was spent counseling/coordinating care. Patient educated on: medication risk/benefits and ECT Reason for contiued inpatient stay Substantial Risk for: harm to self and rapid decompensation
[2021-04-07] VITALS (10 sets, daily range): BP systolic 112–143; BP diastolic 69–87; PULSE 62–91; RESP 14–25; TEMP 36.3–36.8; O2SAT 95–98; BMI 27.7
[2021-04-07 05:29] LABS: Glucose, Whole Blood 144 mg/dL (60-115)
--- NOTE | 2021-04-07 06:38 | HO.ANESPROP2 ---
[facility] Active Problems Active Problems: All Active Problems (Updated 04/05/21 @ 13:04 by Milton Ayala MD) Major depressive disorder, recurrent severe without psychotic features (Acute) Chronic post-traumatic stress disorder (PTSD) (Acute) Hyperglycemia (Acute) Depression (Acute) Past Medical History Medical History (Updated 04/05/21 @ 13:04 by Milton Ayala MD) Acute post-traumatic stress disorder Anxiety Chronic post-traumatic stress disorder (PTSD) Depression Hypertension Hypothyroidism Major depressive disorder, recurrent severe without psychotic features PTSD (post-traumatic stress disorder) Family History Family history of problems with anesthesia: No Surgical History History of Problems with Anesthesia: No Social History Social History Household Members: Family Housing: House Do you presently have visiting nurse or other home services: No Patient Tobacco Use Status: Current everyday Tobacco user Tobacco use type: Cigarette Cigarette Packs Per Day: 1 Cigarettes Per Day: 20.0 Years Smoked: 10+ Smoked in Last 30 Days: Yes Patient Interested in Nicotine Replacement: Yes Patient Given Instructions on How to Stop Smoking: Yes Date Education Initiated: 04/04/21 Second Hand Smoke Exposure: Yes Use of substances other than those prescribed or required for medical reasons: Yes Substance Use Type: Marijuana Substance Use Frequency: Daily Last Used Substance: Just Prior to Admission Currently Displaying Signs/Symptoms of Drug Intoxication Withdrawal: No Any prior treatment program specific to substance use: No Have you been hit, kicked, punched, or otherwise hurt by someone within the past year? If so, by whom?: No Do you feel safe in your current relationship?: Yes Is there a partner from a previous relationship who is making you feel unsafe now?: No Are you made to feel afraid or neglected: No Advance Directives: No Advance Directives Information Provided: Yes Healthcare Proxy: No Guardian: No Do you have thoughts of harming others: None Do you have a plan to hurt others: No Plan Recently lost weight without trying: No How much weight loss: Not applicable Eating poorly because of decreased appetite: No Nutrition screen score: 0 Nutrition Risks: No Nutritional Risk Poor oral hygiene: No service: Yes (Honorable discharge from Service as [place] [employer]) Sexual orientation: Did not discuss Meds Allergies Allergy/AdvReac Type Severity Reaction Status Date / Time NSAIDS (Non-Steroidal AdvReac Severe Shakiness Verified 04/04/21 11:52 Anti-Inflamma aspirin AdvReac Intermediate Shortness Verified 04/04/21 11:52 of Breath bupropion [From Wellbutrin] AdvReac Intermediate Agitated Verified 04/04/21 11:52 Active Medications: Current Medications Acetaminophen (Acetaminophen 325 Mg Tablet) 650 mg PO Q6H PRN PRN Reason: Headache/Pain Mild Scale (1-3) Al Hydroxide/Mg Hydroxide (Magnesium Hydrox/Alum Hydrox 30 Ml Oral.Susp) 30 ml PO Q6H PRN PRN Reason: Heartburn/Nausea Aripiprazole (Aripiprazole 10 Mg Tablet) 10 mg PO DAILY [facility] Last Admin: 04/06/21 08:26 Dose: 10 mg Documented by: Clonidine HCl (Clonidine Hcl 0.1 Mg Tablet) 0.1 mg PO BEDTIME [facility]; Protocol Last Admin: 04/06/21 21:13 Dose: 0.1 mg Documented by: Gabapentin (Gabapentin 100 Mg Capsule) 100 mg PO TID [facility] Last Admin: 04/06/21 21:14 Dose: 100 mg Documented by: Hydroxyzine HCl (Hydroxyzine Hcl 25 Mg Tablet) 25 mg PO QID PRN PRN Reason: Anxiety Last Admin: 04/06/21 18:23 Dose: 25 mg Documented by: Levothyroxine Sodium (Levothyroxine Sodium 75 Mcg Tablet) 150 mcg PO DAILY@0600 [facility] Last Admin: 04/06/21 05:23 Dose: 150 mcg Documented by: Lisinopril (Lisinopril 5 Mg Tablet) 5 mg PO DAILY [facility]; Protocol Last Admin: 04/06/21 08:26 Dose: 5 mg Documented by: Lorazepam (Lorazepam 0.5 Mg Tablet) 0.5 mg PO TID PRN PRN Reason: Anxiety Last Admin: 04/03/21 23:16 Dose: 0.5 mg Documented by: Magnesium Hydroxide (Milk Of Magnesia 30 Ml Oral.Susp) 30 ml PO DAILY PRN PRN Reason: Constipation Nicotine (Nicotine 21 Mg Patch.Td24) 21 mg TRANSDERMA DAILY PRN PRN Reason: smoking cessation Last Admin: 04/06/21 08:40 Dose: 21 mg Documented by: Nicotine Polacrilex (Nicotine Polacrilex 2 Mg Gum) 4 mg BUCCAL Q2H PRN PRN Reason: Nicotine Cravings Last Admin: 04/06/21 14:34 Dose: 4 mg Documented by: Omeprazole (Omeprazole 20 Mg Capsule.) 20 mg PO BID [facility] Last Admin: 04/06/21 22:39 Dose: 20 mg Documented by: Prazosin HCl (Prazosin Hcl 1 Mg Capsule) 2 mg PO BEDTIME [facility]; Protocol Last Admin: 04/06/21 21:15 Dose: 2 mg Documented by: Prazosin HCl (Prazosin Hcl 5 Mg Capsule) 5 mg PO BEDTIME [facility]; Protocol Last Admin: 04/06/21 21:14 Dose: 5 mg Documented by: Quetiapine Fumarate (Quetiapine Fumarate 25 Mg Tablet) 25 mg PO Q4H PRN PRN Reason: anxiety/restlessness Tamsulosin HCl (Tamsulosin Hcl 0.4 Mg Capsule) 0.8 mg PO BEDTIME [facility] Last Admin: 04/06/21 21:10 Dose: 0.8 mg Documented by: Trazodone HCl (Trazodone Hcl 50 Mg Tablet) 150 mg PO BEDTIME [facility] Last Admin: 04/06/21 21:09 Dose: 150 mg Documented by: Venlafaxine HCl (Venlafaxine Hcl Er 150 Mg Cap.Er.24h) 150 mg PO DAILY [facility] Last Admin: 04/06/21 08:26 Dose: 150 mg Documented by: Home Medications Medication Instructions Recorded Confirmed Last Taken Type aripiprazole 15 mg tablet 15 mg PO DAILY 04/03/21 04/03/21 04/03/21 History clonidine HCl 0.1 mg tablet 1 tab PO BEDTIME 04/03/21 04/03/21 04/02/21 History gabapentin 400 mg capsule 1 cap PO TID 04/03/21 04/03/21 04/03/21 History levothyroxine 150 mcg tablet 150 mcg PO DAILY@0600 04/03/21 04/03/21 04/03/21 History lisinopril 5 mg tablet 1 tab PO DAILY 04/03/21 04/03/21 04/03/21 History lorazepam 0.5 mg tablet 1 tab PO TID PRN 04/03/21 04/03/21 Unknown History omeprazole 20 mg capsule,delayed 1 cap PO BID 04/03/21 04/03/21 04/03/21 History release prazosin 1 mg capsule 2 mg PO BEDTIME 04/03/21 04/03/21 04/02/21 History prazosin 5 mg capsule 5 mg PO BEDTIME 04/03/21 04/03/21 04/02/21 History sildenafil 100 mg tablet 1 tab PO DAILY PRN 04/03/21 04/03/21 Unknown History tamsulosin 0.4 mg capsule 2 cap PO BEDTIME 04/03/21 04/03/21 04/02/21 History trazodone 100 mg tablet 150 mg PO BEDTIME 04/03/21 04/03/21 04/02/21 History venlafaxine 150 mg 150 mg PO DAILY 04/03/21 04/03/21 04/03/21 History capsule,extended release 24 hr venlafaxine 37.5 mg 37.5 mg PO DAILY 04/03/21 04/03/21 04/03/21 History tablet,extended release 24 hr Exam Exam Date and Time: April 07, [id number] Height,Weight and Vital Signs: Height 5 ft 8 in Weight 83.915 kg Last Vital Signs Temp 97.3 F 04/07/21 06:25 Pulse 62 04/07/21 06:25 Resp 16 04/07/21 06:25 BP 114/79 04/07/21 06:25 Pulse Ox 95 04/07/21 06:25 Pertinent Lab Results Pertinent Lab Results: Laboratory Tests 04/03/21 04/03/21 04/03/21 14:24 14:24 14:25 WBC 7.4 RBC 5.46 Hgb 17.7 Hct 51.9 MCV 95.1 MCH 32.4 MCHC 34.1 RDW 13.0 Plt Count 181 MPV 9.9 Immature Gran % (Auto) 0.4 Neut % (Auto) 48.2 Lymph % (Auto) 45.0 H [place] % (Auto) 5.9 Eos % (Auto) 0.1 Baso % (Auto) 0.4 Lymph # (Auto) 3.3 [place] # (Auto) 0.4 Eos # (Auto) 0.0 Baso # (Auto) 0.0 Abs Immat Gran (auto) 0.03 Absolute Neuts (auto) 3.5 Absolute Nucleated RBC 0.000 Nucleated RBC % (auto) 0.0 Sodium 139 Potassium 4.1 Chloride 107 Carbon Dioxide 25 Anion Gap 11 L BUN 12 Creatinine 1.04 Estim Creat Clear Calc 88.6 Estimated GFR > 60 POC Glucose Random Glucose 194 H Estimat Average Glucose Hemoglobin A1c % Calcium 9.2 Total Bilirubin 0.3 Direct Bilirubin < 0.2 AST 27 ALT 63 H Alkaline Phosphatase 96 Total Protein 6.9 Albumin 4.2 Triglycerides Cholesterol LDL Cholesterol, Calc HDL Cholesterol Salicylates < 5.0 L Urine Opiates Screen Urine Fentanyl Screen Acetaminophen < 1 Ur Barbiturates Screen Ur Phencyclidine Scrn Ur Amphetamines Screen U Benzodiazepines Scrn Urine Cocaine Screen U Marijuana (THC) Screen Ethyl Alcohol < 10 COVID-19 ([facility]) COVID-19 Clin Com 04/03/21 04/03/21 04/04/21 14:25 14:27 10:50 WBC RBC Hgb Hct MCV MCH MCHC RDW Plt Count MPV Immature Gran % (Auto) Neut % (Auto) Lymph % (Auto) [place] % (Auto) Eos % (Auto) Baso % (Auto) Lymph # (Auto) [place] # (Auto) Eos # (Auto) Baso # (Auto) Abs Immat Gran (auto) Absolute Neuts (auto) Absolute Nucleated RBC Nucleated RBC % (auto) Sodium Potassium Chloride Carbon Dioxide Anion Gap BUN Creatinine Estim Creat Clear Calc Estimated GFR POC Glucose Random Glucose Estimat Average Glucose Hemoglobin A1c % Calcium Total Bilirubin Direct Bilirubin AST ALT Alkaline Phosphatase Total Protein Albumin Triglycerides Cholesterol LDL Cholesterol, Calc HDL Cholesterol Salicylates Urine Opiates Screen Not Detected Urine Fentanyl Screen POSITIVE H Acetaminophen Ur Barbiturates Screen Not Detected Ur Phencyclidine Scrn Not Detected Ur Amphetamines Screen Not Detected U Benzodiazepines Scrn Not Detected Urine Cocaine Screen Not Detected U Marijuana (THC) Screen POSITIVE H Ethyl Alcohol COVID-19 ([facility]) Negative Negative COVID-19 Clin Com See Note See Note 04/05/21 04/05/21 04/05/21 08:17 08:17 22:41 WBC RBC Hgb Hct MCV MCH MCHC RDW Plt Count MPV Immature Gran % (Auto) Neut % (Auto) Lymph % (Auto) [place] % (Auto) Eos % (Auto) Baso % (Auto) Lymph # (Auto) [place] # (Auto) Eos # (Auto) Baso # (Auto) Abs Immat Gran (auto) Absolute Neuts (auto) Absolute Nucleated RBC Nucleated RBC % (auto) Sodium Potassium Chloride Carbon Dioxide Anion Gap BUN Creatinine Estim Creat Clear Calc Estimated GFR POC Glucose 192 H Random Glucose Estimat Average Glucose 160 Hemoglobin A1c % 7.2 Calcium Total Bilirubin Direct Bilirubin AST ALT Alkaline Phosphatase Total Protein Albumin Triglycerides 211 Cholesterol 182 LDL Cholesterol, Calc 110 HDL Cholesterol 30 Salicylates Urine Opiates Screen Urine Fentanyl Screen Acetaminophen Ur Barbiturates Screen Ur Phencyclidine Scrn Ur Amphetamines Screen U Benzodiazepines Scrn Urine Cocaine Screen U Marijuana (THC) Screen Ethyl Alcohol COVID-19 ([facility]) COVID-19 [employer] Com 04/06/21 04/06/21 04/07/21 05:39 19:30 05:25 WBC RBC Hgb Hct MCV MCH MCHC RDW Plt Count MPV Immature Gran % (Auto) Neut % (Auto) Lymph % (Auto) [place] % (Auto) Eos % (Auto) Baso % (Auto) Lymph # (Auto) [place] # (Auto) Eos # (Auto) Baso # (Auto) Abs Immat Gran (auto) Absolute Neuts (auto) Absolute Nucleated RBC Nucleated RBC % (auto) Sodium Potassium Chloride Carbon Dioxide Anion Gap BUN Creatinine Estim Creat Clear Calc Estimated GFR POC Glucose 145 H 190 H 144 H Random Glucose Estimat Average Glucose Hemoglobin A1c % Calcium Total Bilirubin Direct Bilirubin AST ALT Alkaline Phosphatase Total Protein Albumin Triglycerides Cholesterol LDL Cholesterol, Calc HDL Cholesterol Salicylates Urine Opiates Screen Urine Fentanyl Screen Acetaminophen Ur Barbiturates Screen Ur Phencyclidine Scrn Ur Amphetamines Screen U Benzodiazepines Scrn Urine Cocaine Screen U Marijuana (THC) Screen Ethyl Alcohol COVID-19 ([facility]) COVID-19 Clin Com Airway Mallampati Class: II TM Dist: >3cm Neck ROM: Full Denture: Upper and Lower Heart: rrr Lungs: cta Assessment and Plan Assessment Anesthesia Assessment: Anesthesia Plan Discussed and Chart Reviewed Final Anesthetic Review Family History of Problems with Anesthesia: No History of Problems with Anesthesia: No NPO: Yes ASA Class: III Final Preanesthetic Review: No Changes in Pt Med Stat, Meds/Allgs Chart Reviewed and Consent Obtained/Reviewed Patient Risk: Intermediate Procedure Risk: Intermediate Anesthetic Plan Anesthetic Plan: GA Disposition: Standard PACU
--- NOTE | 2021-04-07 07:10 | MHC.SHP ---
Pre-Procedural Eval Section A Date of Service: 04/07/21 The patient is an INPATIENT: Yes Changes since office visit: Yes New Medical Problems, Yes Changes in Medication and Yes Patient answered all questions; No Cold of Flu in the past 2 weeks The History & Physical has been completed within 30 days and I have reviewed it.: Yes Section B Chief Complaint: Depression,SI Allergies: Allergies Allergy/AdvReac Type Severity Reaction Status Date / Time NSAIDS (Non-Steroidal AdvReac Severe Shakiness Verified 04/04/21 11:52 Anti-Inflamma aspirin AdvReac Intermediate Shortness Verified 04/04/21 11:52 of Breath bupropion [From Wellbutrin] AdvReac Intermediate Agitated Verified 04/04/21 11:52 Plan I have reviewed the history and physical and performed a pertinent physical examination on my patient. No changes have occurred unless specified.
--- NOTE | 2021-04-07 07:10 | HO.ECTPROC ---
ECT Procedure Note Diagnosis/Treatment Date of Service: 04/07/21 Diagnosis: Major Depressive Disorder and Other (ptsd) Current Treatment Number: 1 Treatment: Series Interval Clinical Notes: pt med eval reviewed depressed constricted denies actice si metformin started ECT Settings Device: THYMATRON DGx Electrode Placement: Right Unilateral Program/Pulse Width: 0.50 Energy Percent: 100 Seizure Duration By EEG (in seconds): 51 Medications Administration General Anesthetic: Etomidate (16) Muscle Relaxant: Succinylcholine (100) Ancillary Medications Anti-emetics: Zofran - Pre ECT Miscillaneous Medications: Propofol (30) Airway Management Airway Management: Bag Mask Ventilation Treatment Recommendations No Changes Recommended: No change Pt Tolerated Procedure w/o Issue: Yes
[2021-04-07] MEDS: ARIPiprazole 10 MG TABLET PO (09:33)
[2021-04-07] MEDS: Levothyroxine Sodium 75 MCG TABLET 150 MCG PO (09:33)
[2021-04-07] MEDS: Venlafaxine HCl ER 150 MG CAP.ER.24H PO (09:33)
[2021-04-07] MEDS: Gabapentin 100 MG CAPSULE PO ×3 (09:33→20:31)
[2021-04-07] MEDS: lisinopriL 5 MG TABLET PO (09:33)
[2021-04-07] MEDS: Omeprazole 20 MG CAPSULE.DR PO ×2 (09:33→20:32)
[2021-04-07] MEDS: Nicotine 21 MG PATCH.TD24 TRANSDERMA (09:36)
[2021-04-07] MEDS: Acetaminophen 325 MG TABLET 650 MG PO ×2 (11:37→16:59)
[2021-04-07] MEDS: Nicotine Polacrilex 2 MG GUM 4 MG BUCCAL (11:38)
--- NOTE | 2021-04-07 17:23 | HO.PSYCHPN ---
Subjective Subjective Date of Service: 04/07/21 Reason For Visit: Depression,SI Subjective Notes: Conditional Voluntary Healthcare Proxy: No Guardianship: No Medical Problems Affecting Mental Status: No Interim History: Patient tolerated 1st ECT without significant difficulty. Was treated with right unilateral. He patient cooperative with care remains depressed but with a hayward affect denies active suicidality worth forthcoming regarding history of impulsivity question elevated mixed mood states Medication Compliance: Yes Side effects from medications: No Attending Groups: Intermittent Review of Systems Acute medical concerns: Yes Metformin started Medical Review of Systems: unchanged Mental Status Exam Mental Status Exam Patient Appearance: Well Grooomed Patient Orientation: Person, Place, Time and Situation Level of Consciousness: Awake Patient Behavior: Appropriate Mood Description: Constricted, Depressed and Apprehensive Affect Description: Depressed and Apprehensive Patient Cognition Impaired: No Ability to Follow Directions: Good Speech Pattern: Clear Hallucinations: None Delusions: Not Present Thought Process: Intact and Rumination Thought Content: positive for Preoccupation, positive for Suicidal Ideation (Denies in this setting) and negative for Homicidal Ideation Depressive Symptoms: Increased Anxiety, Increased Irritability, Loss of Int. in Activity and Thoughts of /Suicide Judgement and Insight: Less impulsive improving insight and judgment Diagnostics Vital Signs (24Hr): Vital Signs - 24 hr 04/06/21 18:00 04/07/21 05:29 04/07/21 06:25 Temperature 97.9 F 97.8 F 97.3 F Pulse Rate 99 91 62 Respiratory Rate 18 18 16 Blood Pressure 135/89 112/69 114/79 Pulse Oximetry 96 95 95 04/07/21 07:34 04/07/21 07:39 04/07/21 07:44 Temperature 97.4 F Pulse Rate 86 88 69 Respiratory Rate 16 18 25 H Blood Pressure 143/71 H 123/85 141/87 H Pulse Oximetry 95 96 97 04/07/21 07:49 04/07/21 08:04 04/07/21 08:19 Temperature 98.2 F Pulse Rate 74 67 75 Respiratory Rate 19 17 18 Blood Pressure 141/85 H 136/86 136/86 Pulse Oximetry 98 95 96 04/07/21 08:35 Temperature 97.6 F Pulse Rate 77 Respiratory Rate 14 Blood Pressure 133/83 Pulse Oximetry 95 BMI result Body Mass Index 27.7 Labs Results: 04/03/21 14:24 04/03/21 14:25 Labs: Laboratory Results - last 48 hr 04/05/21 04/06/21 04/06/21 22:41 05:39 19:30 POC Glucose 192 H 145 H 190 H 04/07/21 05:25 POC Glucose 144 H Medications Medications Current Medications Acetaminophen (Acetaminophen 325 Mg Tablet) 650 mg PO Q6H PRN PRN Reason: Headache/Pain Mild Scale (1-3) Last Admin: 04/07/21 11:37 Dose: 650 mg Documented by: Al Hydroxide/Mg Hydroxide (Magnesium Hydrox/Alum Hydrox 30 Ml Oral.Susp) 30 ml PO Q6H PRN PRN Reason: Heartburn/Nausea Aripiprazole (Aripiprazole 10 Mg Tablet) 10 mg PO DAILY [facility] Last Admin: 04/07/21 09:33 Dose: 10 mg Documented by: Clonidine HCl (Clonidine Hcl 0.1 Mg Tablet) 0.1 mg PO BEDTIME [facility]; Protocol Last Admin: 04/06/21 21:13 Dose: 0.1 mg Documented by: Gabapentin (Gabapentin 100 Mg Capsule) 100 mg PO TID [facility] Last Admin: 04/07/21 14:34 Dose: 100 mg Documented by: Hydroxyzine HCl (Hydroxyzine Hcl 25 Mg Tablet) 25 mg PO QID PRN PRN Reason: Anxiety Last Admin: 04/06/21 18:23 Dose: 25 mg Documented by: Levothyroxine Sodium (Levothyroxine Sodium 75 Mcg Tablet) 150 mcg PO DAILY@0600 [facility] Last Admin: 04/07/21 09:33 Dose: 150 mcg Documented by: Lisinopril (Lisinopril 5 Mg Tablet) 5 mg PO DAILY [facility]; Protocol Last Admin: 04/07/21 09:33 Dose: 5 mg Documented by: Lorazepam (Lorazepam 0.5 Mg Tablet) 0.5 mg PO TID PRN PRN Reason: Anxiety Last Admin: 04/03/21 23:16 Dose: 0.5 mg Documented by: Magnesium Hydroxide (Milk Of Magnesia 30 Ml Oral.Susp) 30 ml PO DAILY PRN PRN Reason: Constipation Nicotine (Nicotine 21 Mg Patch.Td24) 21 mg TRANSDERMA DAILY PRN PRN Reason: smoking cessation Last Admin: 04/07/21 09:36 Dose: 21 mg Documented by: Nicotine Polacrilex (Nicotine Polacrilex 2 Mg Gum) 4 mg BUCCAL Q2H PRN PRN Reason: Nicotine Cravings Last Admin: 04/07/21 11:38 Dose: 4 mg Documented by: Omeprazole (Omeprazole 20 Mg Capsule.Dr) 20 mg PO BID [facility] Last Admin: 04/07/21 09:33 Dose: 20 mg Documented by: Prazosin HCl (Prazosin Hcl 1 Mg Capsule) 2 mg PO BEDTIME [facility]; Protocol Last Admin: 04/06/21 21:15 Dose: 2 mg Documented by: Prazosin HCl (Prazosin Hcl 5 Mg Capsule) 5 mg PO BEDTIME [facility]; Protocol Last Admin: 04/06/21 21:14 Dose: 5 mg Documented by: Quetiapine Fumarate (Quetiapine Fumarate 25 Mg Tablet) 25 mg PO Q4H PRN PRN Reason: anxiety/restlessness Tamsulosin HCl (Tamsulosin Hcl 0.4 Mg Capsule) 0.8 mg PO BEDTIME [facility] Last Admin: 04/06/21 21:10 Dose: 0.8 mg Documented by: Trazodone HCl (Trazodone Hcl 50 Mg Tablet) 150 mg PO BEDTIME [facility] Last Admin: 04/06/21 21:09 Dose: 150 mg Documented by: Venlafaxine HCl (Venlafaxine Hcl Er 150 Mg Cap.Er.24h) 150 mg PO DAILY [facility] Last Admin: 04/07/21 09:33 Dose: 150 mg Documented by: Allergies Allergies Allergy/AdvReac Type Severity Reaction Status Date / Time NSAIDS (Non-Steroidal AdvReac Severe Shakiness Verified 04/04/21 11:52 Anti-Inflamma aspirin AdvReac Intermediate Shortness Verified 04/04/21 11:52 of Breath bupropion [From Wellbutrin] AdvReac Intermediate Agitated Verified 04/04/21 11:52 Assessment & Plan Assessment & Plan (1) Major depressive disorder, recurrent severe without psychotic features: Status: Acute Code(s): F33.2 - Major depressive disorder, recurrent severe without psychotic features Assessment and Plan: Continue ECT taper Effexor literature given regarding bipolar to question of mixed episodes consider lithium Lamictal (2) Hyperglycemia: Status: Acute Code(s): R73.9 - Hyperglycemia, unspecified Assessment and Plan: Continue metformin (3) Chronic post-traumatic stress disorder (PTSD): Status: Acute Code(s): F43.12 - Post-traumatic stress disorder, chronic Assessment and Plan: Continue prazosin grounding tech and techniques relaxation techniques I spent _30 minutes with the patient and/or on the patient floor today, greater than?50% of which was spent counseling/coordinating care. Reason for contiued inpatient stay Substantial Risk for: harm to self and rapid decompensation
[2021-04-07] MEDS: Prazosin HCL 1 MG CAPSULE 2 MG PO (20:30)
[2021-04-07] MEDS: Prazosin HCL 5 MG CAPSULE PO (20:31)
[2021-04-07] MEDS: traZODone HCL 50 MG TABLET 150 MG PO (20:31)
[2021-04-07] MEDS: cloNIDine HCL 0.1 MG TABLET PO (20:31)
[2021-04-07] MEDS: Tamsulosin HCL 0.4 MG CAPSULE 0.8 MG PO (20:32)
[2021-04-07 21:25] LABS: Glucose, Whole Blood 147 mg/dL (60-115)
[2021-04-08] MEDS: Levothyroxine Sodium 75 MCG TABLET 150 MCG PO (06:20)
[2021-04-08] MEDS: ARIPiprazole 10 MG TABLET PO (08:30)
[2021-04-08] MEDS: Omeprazole 20 MG CAPSULE.DR PO ×2 (08:30→21:10)
[2021-04-08] MEDS: Venlafaxine HCl ER 150 MG CAP.ER.24H PO (08:30)
[2021-04-08] MEDS: lisinopriL 5 MG TABLET PO (08:30)
[2021-04-08] MEDS: Gabapentin 100 MG CAPSULE PO ×3 (08:30→21:09)
[2021-04-08 08:40] VITALS: BP 126/76; PULSE 73; RESP 16; TEMP 36.6; O2SAT 97
[2021-04-08] MEDS: Nicotine Polacrilex 2 MG GUM 4 MG BUCCAL (14:30)
--- NOTE | 2021-04-08 15:57 | HO.PSYCHPN ---
Subjective Subjective Date of Service: 04/08/21 Reason For Visit: Depression,SI Interim History: Patient seen and discussed with team. Patient evaluated this morning and upon interview he says he is doing okay, ECT went well. He denies benefit on medication, says in the past It works for a little while then it fizzles out. It just doesnt work, I'm tired of that. Sleep is good, less somnolent, has been up since 4am. says he had a lot of energy last night after ECT, fell asleep at 10:30 at night, usually in bed 830-9pm. Appetite is okay. In the milieu, patient is safe and appropriate in behavior. Denies SI/SIB/HI upon inquiry. Denies irritability or assaultive ideation. Says he feels safe. Medication Compliance: Yes Side effects from medications: No Attending Groups: Intermittent Review of Systems Acute medical concerns: No Medical Review of Systems: unchanged Mental Status Exam Mental Status Exam Narrative: Patient is an anxious-appearing male cooperative to the interview.?His speech is clear goal-directed logical normal.? His mood is depressed, affect is calmer.? No psychotic symptoms he is asking for help.? Insight/ judgment good. Diagnostics Vital Signs (24Hr): Vital Signs - 24 hr 04/08/21 18:00 04/09/21 06:00 Temperature 98.9 F 98 F Pulse Rate 89 77 Respiratory Rate 18 Blood Pressure 125/72 109/62 Pulse Oximetry 96 BMI result Body Mass Index 27.7 Labs Results: 04/03/21 14:24 04/03/21 14:25 Labs: Laboratory Results - last 48 hr 04/07/21 04/08/21 04/09/21 21:21 21:03 06:50 POC Glucose 147 H 157 H 155 H TSH 04/09/21 07:59 POC Glucose TSH 0.88 Medications Medications Current Medications Acetaminophen (Acetaminophen 325 Mg Tablet) 650 mg PO Q6H PRN PRN Reason: Headache/Pain Mild Scale (1-3) Last Admin: 04/08/21 21:07 Dose: 650 mg Documented by: Al Hydroxide/Mg Hydroxide (Magnesium Hydrox/Alum Hydrox 30 Ml Oral.Susp) 30 ml PO Q6H PRN PRN Reason: Heartburn/Nausea Aripiprazole (Aripiprazole 10 Mg Tablet) 10 mg PO DAILY [facility], [facility] Last Admin: 04/09/21 08:26 Dose: 10 mg Documented by: Clonidine HCl (Clonidine Hcl 0.1 Mg Tablet) 0.1 mg PO BEDTIME [facility], [facility]; Protocol Last Admin: 04/08/21 21:10 Dose: 0.1 mg Documented by: Gabapentin (Gabapentin 100 Mg Capsule) 100 mg PO TID [facility] Last Admin: 04/09/21 08:26 Dose: 100 mg Documented by: Hydroxyzine HCl (Hydroxyzine Hcl 25 Mg Tablet) 25 mg PO QID PRN PRN Reason: Anxiety Last Admin: 04/06/21 18:23 Dose: 25 mg Documented by: Levothyroxine Sodium (Levothyroxine Sodium 75 Mcg Tablet) 150 mcg PO DAILY@0600 [facility], [facility]1983 Last Admin: 04/09/21 06:40 Dose: 150 mcg Documented by: Lisinopril (Lisinopril 5 Mg Tablet) 5 mg PO DAILY [facility], [facility]; Protocol Last Admin: 04/09/21 08:26 Dose: 5 mg Documented by: Magnesium Hydroxide (Milk Of Magnesia 30 Ml Oral.Susp) 30 ml PO DAILY PRN PRN Reason: Constipation Nicotine (Nicotine 21 Mg Patch.Td24) 21 mg TRANSDERMA DAILY PRN PRN Reason: smoking cessation Last Admin: 04/07/21 09:36 Dose: 21 mg Documented by: Nicotine Polacrilex (Nicotine Polacrilex 2 Mg Gum) 4 mg BUCCAL Q2H PRN PRN Reason: Nicotine Cravings Last Admin: 04/08/21 14:30 Dose: 4 mg Documented by: Omeprazole (Omeprazole 20 Mg Capsule.) 20 mg PO BID [facility] Last Admin: 04/09/21 08:26 Dose: 20 mg Documented by: Prazosin HCl (Prazosin Hcl 1 Mg Capsule) 2 mg PO BEDTIME [facility]; Protocol Last Admin: 04/08/21 21:09 Dose: 2 mg Documented by: Prazosin HCl (Prazosin Hcl 5 Mg Capsule) 5 mg PO BEDTIME [facility]; Protocol Last Admin: 04/08/21 21:08 Dose: 5 mg Documented by: Quetiapine Fumarate (Quetiapine Fumarate 25 Mg Tablet) 25 mg PO Q4H PRN PRN Reason: anxiety/restlessness Tamsulosin HCl (Tamsulosin Hcl 0.4 Mg Capsule) 0.8 mg PO BEDTIME [facility] Last Admin: 04/08/21 21:10 Dose: 0.8 mg Documented by: Trazodone HCl (Trazodone Hcl 50 Mg Tablet) 150 mg PO BEDTIME [facility] Last Admin: 04/08/21 21:11 Dose: 150 mg Documented by: Venlafaxine HCl (Venlafaxine Hcl Er 150 Mg Cap.Er.24h) 150 mg PO DAILY [facility] Last Admin: 04/09/21 08:26 Dose: 150 mg Documented by: Allergies Allergies Allergy/AdvReac Type Severity Reaction Status Date / Time NSAIDS (Non-Steroidal AdvReac Severe Shakiness Verified 04/04/21 11:52 Anti-Inflamma aspirin AdvReac Intermediate Shortness Verified 04/04/21 11:52 of Breath bupropion [From Wellbutrin] AdvReac Intermediate Agitated Verified 04/04/21 11:52 Assessment & Plan Assessment & Plan (1) Major depressive disorder, recurrent severe without psychotic features: Status: Acute Code(s): F33.2 - Major depressive disorder, recurrent severe without psychotic features Assessment and Plan: Continue ECT taper Effexor literature given regarding bipolar to question of mixed episodes consider lithium Lamictal (2) Hyperglycemia: Status: Acute Code(s): R73.9 - Hyperglycemia, unspecified Assessment and Plan: Continue metformin (3) Chronic post-traumatic stress disorder (PTSD): Status: Acute Code(s): F43.12 - Post-traumatic stress disorder, chronic Assessment and Plan: Continue prazosin grounding tech and techniques relaxation techniques Plan 2/5: no medication changes, pt tolerating ECT and denies adverse effects I spent minutes with the patient and/or on the patient floor today, greater than?50% of which was spent counseling/coordinating care. Reason for contiued inpatient stay Substantial Risk for: harm to self, rapid decompensation and med/psych decompensation
[2021-04-08 18:00] VITALS: BP 125/72; PULSE 89; TEMP 37.2
[2021-04-08] MEDS: Acetaminophen 325 MG TABLET 650 MG PO (21:07)
[2021-04-08] MEDS: Prazosin HCL 5 MG CAPSULE PO (21:08)
[2021-04-08] MEDS: Prazosin HCL 1 MG CAPSULE 2 MG PO (21:09)
[2021-04-08] MEDS: cloNIDine HCL 0.1 MG TABLET PO (21:10)
[2021-04-08] MEDS: Tamsulosin HCL 0.4 MG CAPSULE 0.8 MG PO (21:10)
[2021-04-08] MEDS: traZODone HCL 50 MG TABLET 150 MG PO (21:11)
[2021-04-08 22:24] LABS: Glucose, Whole Blood 157 mg/dL (60-115)
[2021-04-09 06:00] VITALS: BP 109/62; PULSE 77; RESP 18; TEMP 36.6; O2SAT 96
[2021-04-09] MEDS: Levothyroxine Sodium 75 MCG TABLET 150 MCG PO (06:40)
[2021-04-09 06:56] LABS: Glucose, Whole Blood 155 mg/dL (60-115)
[2021-04-09] MEDS: Venlafaxine HCl ER 150 MG CAP.ER.24H PO (08:26)
[2021-04-09] MEDS: Omeprazole 20 MG CAPSULE.DR PO ×2 (08:26→21:32)
[2021-04-09] MEDS: Gabapentin 100 MG CAPSULE PO ×3 (08:26→21:31)
[2021-04-09] MEDS: ARIPiprazole 10 MG TABLET PO (08:26)
[2021-04-09] MEDS: lisinopriL 5 MG TABLET PO (08:26)
[2021-04-09 08:58] LABS: TSH reflex Free T4 0.88 uIU/mL (0.32-4.0)
--- NOTE | 2021-04-09 11:58 | P.PNPSI_ITS ---
Subjective Subjective Date of Service: 04/09/21 Reason For Visit: Depression,SI Interim History: Patient seen and discussed with team. Patient evaluated this morning and upon interview he reports he slept well, has been talking with his , she has visited. Discussed doing couple's counseling with her but says I know its not gonna happen overnight. Says his muscles are a little sore, sarbjit his R calf s/p ECT. In the milieu, patient is safe and appropriate in behavior. Denies SI/SIB/HI upon inquiry. Denies irritability or assaultive ideation. Says he feels safe. Medication Compliance: Yes Side effects from medications: No Attending Groups: Intermittent Review of Systems Acute medical concerns: No Medical Review of Systems: unchanged Mental Status Exam Mental Status Exam Narrative: Patient is an anxious-appearing male cooperative to the interview.? His affect is tearful at times, somewhat more hopeful? His speech is clear goal- directed logical normal.? His mood is depressed, anxious. Has some psychomotor agitation.? Currently denies SI/ SIB? No psychotic symptoms.? Insight/ judgment good. Diagnostics Vital Signs (24Hr): Vital Signs - 24 hr 04/08/21 18:00 04/09/21 06:00 Temperature 98.9 F 98 F Pulse Rate 89 77 Respiratory Rate 18 Blood Pressure 125/72 109/62 Pulse Oximetry 96 BMI result Verdana 4 Body Mass Index Verdana 4 27.7 Verdana 4 Verdana 4 Labs Results: 04/03/21 14:24 04/03/21 14:25 Labs: Laboratory Results - last 48 hr 04/07/21 04/08/21 04/09/21 21:21 21:03 06:50 POC Glucose 147 H 157 H 155 H TSH 04/09/21 07:59 POC Glucose TSH 0.88 Medications Medications Current Medications Acetaminophen (Acetaminophen 325 Mg Tablet) 650 mg PO Q6H PRN PRN Reason: Headache/Pain Mild Scale (1-3) Last Admin: 04/08/21 21:07 Dose: 650 mg Documented by: Al Hydroxide/Mg Hydroxide (Magnesium Hydrox/Alum Hydrox 30 Ml Oral.Susp) 30 ml PO Q6H PRN PRN Reason: Heartburn/Nausea Aripiprazole (Aripiprazole 10 Mg Tablet) 10 mg PO DAILY [facility] Last Admin: 04/09/21 08:26 Dose: 10 mg Documented by: Clonidine HCl (Clonidine Hcl 0.1 Mg Tablet) 0.1 mg PO BEDTIME [facility]; Protocol Last Admin: 04/08/21 21:10 Dose: 0.1 mg Documented by: Gabapentin (Gabapentin 100 Mg Capsule) 100 mg PO TID [facility] Last Admin: 04/09/21 08:26 Dose: 100 mg Documented by: Hydroxyzine HCl (Hydroxyzine Hcl 25 Mg Tablet) 25 mg PO QID PRN PRN Reason: Anxiety Last Admin: 04/06/21 18:23 Dose: 25 mg Documented by: Levothyroxine Sodium (Levothyroxine Sodium 75 Mcg Tablet) 150 mcg PO DAILY@0600 [facility] Last Admin: 04/09/21 06:40 Dose: 150 mcg Documented by: Lisinopril (Lisinopril 5 Mg Tablet) 5 mg PO DAILY [facility]; Protocol Last Admin: 04/09/21 08:26 Dose: 5 mg Documented by: Magnesium Hydroxide (Milk Of Magnesia 30 Ml Oral.Susp) 30 ml PO DAILY PRN PRN Reason: Constipation Nicotine (Nicotine 21 Mg Patch.Td24) 21 mg TRANSDERMA DAILY PRN PRN Reason: smoking cessation Last Admin: 04/07/21 09:36 Dose: 21 mg Documented by: Nicotine Polacrilex (Nicotine Polacrilex 2 Mg Gum) 4 mg BUCCAL Q2H PRN PRN Reason: Nicotine Cravings Last Admin: 04/08/21 14:30 Dose: 4 mg Documented by: Omeprazole (Omeprazole 20 Mg Capsule.) 20 mg PO BID [facility] Last Admin: 04/09/21 08:26 Dose: 20 mg Documented by: Prazosin HCl (Prazosin Hcl 1 Mg Capsule) 2 mg PO BEDTIME [facility]; Protocol Last Admin: 04/08/21 21:09 Dose: 2 mg Documented by: Prazosin HCl (Prazosin Hcl 5 Mg Capsule) 5 mg PO BEDTIME [facility]; Protocol Last Admin: 04/08/21 21:08 Dose: 5 mg Documented by: Quetiapine Fumarate (Quetiapine Fumarate 25 Mg Tablet) 25 mg PO Q4H PRN PRN Reason: anxiety/restlessness Tamsulosin HCl (Tamsulosin Hcl 0.4 Mg Capsule) 0.8 mg PO BEDTIME [facility] Last Admin: 04/08/21 21:10 Dose: 0.8 mg Documented by: Trazodone HCl (Trazodone Hcl 50 Mg Tablet) 150 mg PO BEDTIME [facility] Last Admin: 04/08/21 21:11 Dose: 150 mg Documented by: Venlafaxine HCl (Venlafaxine Hcl Er 150 Mg Cap.Er.24h) 150 mg PO DAILY [facility] Last Admin: 04/09/21 08:26 Dose: 150 mg Documented by: Allergies Allergies Allergy/AdvReac Type Severity Reaction Status Date / Time NSAIDS AdvReac Severe Shakiness Verified 04/04/21 11:52 (Non-Steroidal Anti-Inflamma aspirin AdvReac Intermediate Shortness Verified 04/04/21 11:52 of Breath bupropion [From AdvReac Intermediate Agitated Verified 04/04/21 11:52 Wellbutrin] Assessment & Plan Assessment & Plan (1) Major depressive disorder, recurrent severe without psychotic features: Status: Acute Code(s): F33.2 - Major depressive disorder, recurrent severe without psychotic features Assessment and Plan: Continue ECT taper Effexor literature given regarding bipolar to question of mixed episodes consider lithium Lamictal (2) Hyperglycemia: Status: Acute Code(s): R73.9 - Hyperglycemia, unspecified Assessment and Plan: Continue metformin (3) Chronic post-traumatic stress disorder (PTSD): Status: Acute Code(s): F43.12 - Post-traumatic stress disorder, chronic Assessment and Plan: Continue prazosin grounding tech and techniques relaxation techniques Plan 2/5: no medication changes, pt tolerating ECT and denies adverse effects 2/6: Pt somewhat more hopeful, showered, talked with . Has ECT tomorrow I spent minutes with the patient and/or on the patient floor today, greater than?50% of which was spent counseling/coordinating care. Reason for contiued inpatient stay Substantial Risk for: harm to self, rapid decompensation and med/psych decompensation
[2021-04-09 16:43] LABS: Glucose, Whole Blood 183 mg/dL (60-115)
[2021-04-09] MEDS: Prazosin HCL 5 MG CAPSULE PO (21:31)
[2021-04-09] MEDS: traZODone HCL 50 MG TABLET 150 MG PO (21:32)
[2021-04-09] MEDS: Prazosin HCL 1 MG CAPSULE 2 MG PO (21:32)
[2021-04-09] MEDS: cloNIDine HCL 0.1 MG TABLET PO (21:32)
[2021-04-09] MEDS: Tamsulosin HCL 0.4 MG CAPSULE 0.8 MG PO (21:32)
[2021-04-09 21:45] VITALS: BP 126/78; PULSE 80
[2021-04-10] VITALS (11 sets, daily range): BP systolic 109–164; BP diastolic 67–97; PULSE 50–85; RESP 16–22; TEMP 36–37.1; O2SAT 95–98
[2021-04-10 06:27] LABS: Glucose, Whole Blood 139 mg/dL (60-115)
--- NOTE | 2021-04-10 06:44 | HO.ANESPROP2 ---
[facility] Active Problems Active Problems: All Active Problems (Updated 04/05/21 @ 13:04 by Milton Ayala MD) Major depressive disorder, recurrent severe without psychotic features (Acute) Chronic post-traumatic stress disorder (PTSD) (Acute) Hyperglycemia (Acute) Depression (Acute) Past Medical History Medical History (Updated 04/05/21 @ 13:04 by Milton Ayala MD) Acute post-traumatic stress disorder Anxiety Chronic post-traumatic stress disorder (PTSD) Depression Hypertension Hypothyroidism Major depressive disorder, recurrent severe without psychotic features PTSD (post-traumatic stress disorder) Family History Family history of problems with anesthesia: No Surgical History History of Problems with Anesthesia: No Social History Social History Household Members: Family Housing: House Do you presently have visiting nurse or other home services: No Patient Tobacco Use Status: Current everyday Tobacco user Tobacco use type: Cigarette Cigarette Packs Per Day: 1 Cigarettes Per Day: 20.0 Years Smoked: 10+ Smoked in Last 30 Days: Yes Patient Interested in Nicotine Replacement: Yes Patient Given Instructions on How to Stop Smoking: Yes Date Education Initiated: 04/04/21 Second Hand Smoke Exposure: Yes Use of substances other than those prescribed or required for medical reasons: Yes Substance Use Type: Marijuana Substance Use Frequency: Daily Last Used Substance: Just Prior to Admission Currently Displaying Signs/Symptoms of Drug Intoxication Withdrawal: No Any prior treatment program specific to substance use: No Have you been hit, kicked, punched, or otherwise hurt by someone within the past year? If so, by whom?: No Do you feel safe in your current relationship?: Yes Is there a partner from a previous relationship who is making you feel unsafe now?: No Are you made to feel afraid or neglected: No Advance Directives: No Advance Directives Information Provided: Yes Healthcare Proxy: No Guardian: No Do you have thoughts of harming others: None Do you have a plan to hurt others: No Plan Recently lost weight without trying: No How much weight loss: Not applicable Eating poorly because of decreased appetite: No Nutrition screen score: 0 Nutrition Risks: No Nutritional Risk Poor oral hygiene: No service: Yes (Honorable discharge from Service as [employer]) Sexual orientation: Did not discuss Meds Allergies Allergy/AdvReac Type Severity Reaction Status Date / Time NSAIDS (Non-Steroidal AdvReac Severe Shakiness Verified 04/04/21 11:52 Anti-Inflamma aspirin AdvReac Intermediate Shortness Verified 04/04/21 11:52 of Breath bupropion [From Wellbutrin] AdvReac Intermediate Agitated Verified 04/04/21 11:52 Active Medications: Current Medications Acetaminophen (Acetaminophen 325 Mg Tablet) 650 mg PO Q6H PRN PRN Reason: Headache/Pain Mild Scale (1-3) Last Admin: 04/08/21 21:07 Dose: 650 mg Documented by: Al Hydroxide/Mg Hydroxide (Magnesium Hydrox/Alum Hydrox 30 Ml Oral.Susp) 30 ml PO Q6H PRN PRN Reason: Heartburn/Nausea Aripiprazole (Aripiprazole 10 Mg Tablet) 10 mg PO DAILY [facility] Last Admin: 04/09/21 08:26 Dose: 10 mg Documented by: Clonidine HCl (Clonidine Hcl 0.1 Mg Tablet) 0.1 mg PO BEDTIME [facility]; Protocol Last Admin: 04/09/21 21:32 Dose: 0.1 mg Documented by: Gabapentin (Gabapentin 100 Mg Capsule) 100 mg PO TID [facility] Last Admin: 04/09/21 21:31 Dose: 100 mg Documented by: Hydroxyzine HCl (Hydroxyzine Hcl 25 Mg Tablet) 25 mg PO QID PRN PRN Reason: Anxiety Last Admin: 04/06/21 18:23 Dose: 25 mg Documented by: Lactated Ringer's (Lr) 1,000 mls @ 50 mls/hr IVCONT .Q20H [facility] Levothyroxine Sodium (Levothyroxine Sodium 75 Mcg Tablet) 150 mcg PO DAILY@0600 [facility] Last Admin: 04/10/21 06:40 Dose: Not Given Documented by: Lisinopril (Lisinopril 5 Mg Tablet) 5 mg PO DAILY [facility]; Protocol Last Admin: 04/09/21 08:26 Dose: 5 mg Documented by: Magnesium Hydroxide (Milk Of Magnesia 30 Ml Oral.Susp) 30 ml PO DAILY PRN PRN Reason: Constipation Nicotine (Nicotine 21 Mg Patch.Td24) 21 mg TRANSDERMA DAILY PRN PRN Reason: smoking cessation Last Admin: 04/07/21 09:36 Dose: 21 mg Documented by: Nicotine Polacrilex (Nicotine Polacrilex 2 Mg Gum) 4 mg BUCCAL Q2H PRN PRN Reason: Nicotine Cravings Last Admin: 04/08/21 14:30 Dose: 4 mg Documented by: Omeprazole (Omeprazole 20 Mg Capsule.) 20 mg PO BID O[facility] Last Admin: 04/09/21 21:32 Dose: 20 mg Documented by: Prazosin HCl (Prazosin Hcl 1 Mg Capsule) 2 mg PO BEDTIME [facility]; Protocol Last Admin: 04/09/21 21:32 Dose: 2 mg Documented by: Prazosin HCl (Prazosin Hcl 5 Mg Capsule) 5 mg PO BEDTIME [facility]; Protocol Last Admin: 04/09/21 21:31 Dose: 5 mg Documented by: Quetiapine Fumarate (Quetiapine Fumarate 25 Mg Tablet) 25 mg PO Q4H PRN PRN Reason: anxiety/restlessness Tamsulosin HCl (Tamsulosin Hcl 0.4 Mg Capsule) 0.8 mg PO BEDTIME [facility] Last Admin: 04/09/21 21:32 Dose: 0.8 mg Documented by: Trazodone HCl (Trazodone Hcl 50 Mg Tablet) 150 mg PO BEDTIME [facility] Last Admin: 04/09/21 21:32 Dose: 150 mg Documented by: Venlafaxine HCl (Venlafaxine Hcl Er 150 Mg Cap.Er.24h) 150 mg PO DAILY [facility] Last Admin: 04/09/21 08:26 Dose: 150 mg Documented by: Home Medications Medication Instructions Recorded Confirmed Last Taken Type aripiprazole 15 mg tablet 15 mg PO DAILY 04/03/21 04/03/21 04/03/21 History clonidine HCl 0.1 mg tablet 1 tab PO BEDTIME 04/03/21 04/03/21 04/02/21 History gabapentin 400 mg capsule 1 cap PO TID 04/03/21 04/03/21 04/03/21 History levothyroxine 150 mcg tablet 150 mcg PO DAILY@0600 04/03/21 04/03/21 04/03/21 History lisinopril 5 mg tablet 1 tab PO DAILY 04/03/21 04/03/21 04/03/21 History lorazepam 0.5 mg tablet 1 tab PO TID PRN 04/03/21 04/03/21 Unknown History omeprazole 20 mg capsule,delayed 1 cap PO BID 04/03/21 04/03/21 04/03/21 History release prazosin 1 mg capsule 2 mg PO BEDTIME 04/03/21 04/03/21 04/02/21 History prazosin 5 mg capsule 5 mg PO BEDTIME 04/03/21 04/03/21 04/02/21 History sildenafil 100 mg tablet 1 tab PO DAILY PRN 04/03/21 04/03/21 Unknown History tamsulosin 0.4 mg capsule 2 cap PO BEDTIME 04/03/21 04/03/21 04/02/21 History trazodone 100 mg tablet 150 mg PO BEDTIME 04/03/21 04/03/21 04/02/21 History venlafaxine 150 mg 150 mg PO DAILY 04/03/21 04/03/21 04/03/21 History capsule,extended release 24 hr venlafaxine 37.5 mg 37.5 mg PO DAILY 04/03/21 04/03/21 04/03/21 History tablet,extended release 24 hr Exam Exam Date and Time: April 10, 2021 0644 Height,Weight and Vital Signs: Height 5 ft 8 in Weight 82.8 kg Last Vital Signs Temp 97.6 F 04/10/21 06:33 Pulse 66 04/10/21 06:33 Resp 16 04/10/21 06:33 BP 112/70 04/10/21 06:33 Pulse Ox 96 04/10/21 06:33 Pertinent Lab Results Pertinent Lab Results: Laboratory Tests 04/03/21 04/03/21 04/03/21 14:24 14:24 14:25 WBC 7.4 RBC 5.46 Hgb 17.7 Hct 51.9 MCV 95.1 MCH 32.4 MCHC 34.1 RDW 13.0 Plt Count 181 MPV 9.9 Immature Gran % (Auto) 0.4 Neut % (Auto) 48.2 Lymph % (Auto) 45.0 H [place] % (Auto) 5.9 Eos % (Auto) 0.1 Baso % (Auto) 0.4 Lymph # (Auto) 3.3 [place] # (Auto) 0.4 Eos # (Auto) 0.0 Baso # (Auto) 0.0 Abs Immat Gran (auto) 0.03 Absolute Neuts (auto) 3.5 Absolute Nucleated RBC 0.000 Nucleated RBC % (auto) 0.0 Sodium 139 Potassium 4.1 Chloride 107 Carbon Dioxide 25 Anion Gap 11 L BUN 12 Creatinine 1.04 Estim Creat Clear Calc 88.6 Estimated GFR > 60 POC Glucose Random Glucose 194 H Estimat Average Glucose Hemoglobin A1c % Calcium 9.2 Total Bilirubin 0.3 Direct Bilirubin < 0.2 AST 27 ALT 63 H Alkaline Phosphatase 96 Total Protein 6.9 Albumin 4.2 Triglycerides Cholesterol LDL Cholesterol, Calc HDL Cholesterol TSH Salicylates < 5.0 L Urine Opiates Screen Urine Fentanyl Screen Acetaminophen < 1 Ur Barbiturates Screen Ur Phencyclidine Scrn Ur Amphetamines Screen U Benzodiazepines Scrn Urine Cocaine Screen U Marijuana (THC) Screen Ethyl Alcohol < 10 COVID-19 ([facility]) COVID-19 Clin Com 04/03/21 04/03/21 04/04/21 14:25 14:27 10:50 WBC RBC Hgb Hct MCV MCH MCHC RDW Plt Count MPV Immature Gran % (Auto) Neut % (Auto) Lymph % (Auto) [place] % (Auto) Eos % (Auto) Baso % (Auto) Lymph # (Auto) [place] # (Auto) Eos # (Auto) Baso # (Auto) Abs Immat Gran (auto) Absolute Neuts (auto) Absolute Nucleated RBC Nucleated RBC % (auto) Sodium Potassium Chloride Carbon Dioxide Anion Gap BUN Creatinine Estim Creat Clear Calc Estimated GFR POC Glucose Random Glucose Estimat Average Glucose Hemoglobin A1c % Calcium Total Bilirubin Direct Bilirubin AST ALT Alkaline Phosphatase Total Protein Albumin Triglycerides Cholesterol LDL Cholesterol, Calc HDL Cholesterol TSH Salicylates Urine Opiates Screen Not Detected Urine Fentanyl Screen POSITIVE H Acetaminophen Ur Barbiturates Screen Not Detected Ur Phencyclidine Scrn Not Detected Ur Amphetamines Screen Not Detected U Benzodiazepines Scrn Not Detected Urine Cocaine Screen Not Detected U Marijuana (THC) Screen POSITIVE H Ethyl Alcohol COVID-19 ([facility]) Negative Negative COVID-19 Clin Com See Note See Note 04/05/21 04/05/21 04/05/21 08:17 08:17 22:41 WBC RBC Hgb Hct MCV MCH MCHC RDW Plt Count MPV Immature Gran % (Auto) Neut % (Auto) Lymph % (Auto) [place] % (Auto) Eos % (Auto) Baso % (Auto) Lymph # (Auto) [place] # (Auto) Eos # (Auto) Baso # (Auto) Abs Immat Gran (auto) Absolute Neuts (auto) Absolute Nucleated RBC Nucleated RBC % (auto) Sodium Potassium Chloride Carbon Dioxide Anion Gap BUN Creatinine Estim Creat Clear Calc Estimated GFR POC Glucose 192 H Random Glucose Estimat Average Glucose 160 Hemoglobin A1c % 7.2 Calcium Total Bilirubin Direct Bilirubin AST ALT Alkaline Phosphatase Total Protein Albumin Triglycerides 211 Cholesterol 182 LDL Cholesterol, Calc 110 HDL Cholesterol 30 TSH Salicylates Urine Opiates Screen Urine Fentanyl Screen Acetaminophen Ur Barbiturates Screen Ur Phencyclidine Scrn Ur Amphetamines Screen U Benzodiazepines Scrn Urine Cocaine Screen U Marijuana (THC) Screen Ethyl Alcohol COVID-19 ([facility]) COVID-flikdate 04/06/21 04/06/21 04/07/21 05:39 19:30 05:25 WBC RBC Hgb Hct MCV MCH MCHC RDW Plt Count MPV Immature Gran % (Auto) Neut % (Auto) Lymph % (Auto) [place] % (Auto) Eos % (Auto) Baso % (Auto) Lymph # (Auto) [place] # (Auto) Eos # (Auto) Baso # (Auto) Abs Immat Gran (auto) Absolute Neuts (auto) Absolute Nucleated RBC Nucleated RBC % (auto) Sodium Potassium Chloride Carbon Dioxide Anion Gap BUN Creatinine Estim Creat Clear Calc Estimated GFR POC Glucose 145 H 190 H 144 H Random Glucose Estimat Average Glucose Hemoglobin A1c % Calcium Total Bilirubin Direct Bilirubin AST ALT Alkaline Phosphatase Total Protein Albumin Triglycerides Cholesterol LDL Cholesterol, Calc HDL Cholesterol TSH Salicylates Urine Opiates Screen Urine Fentanyl Screen Acetaminophen Ur Barbiturates Screen Ur Phencyclidine Scrn Ur Amphetamines Screen U Benzodiazepines Scrn Urine Cocaine Screen U Marijuana (THC) Screen Ethyl Alcohol COVID-19 ([facility]) COVID-flikdate 04/07/21 04/08/21 04/09/21 21:21 21:03 06:50 WBC RBC Hgb Hct MCV MCH MCHC RDW Plt Count MPV Immature Gran % (Auto) Neut % (Auto) Lymph % (Auto) [place] % (Auto) Eos % (Auto) Baso % (Auto) Lymph # (Auto) [place] # (Auto) Eos # (Auto) Baso # (Auto) Abs Immat Gran (auto) Absolute Neuts (auto) Absolute Nucleated RBC Nucleated RBC % (auto) Sodium Potassium Chloride Carbon Dioxide Anion Gap BUN Creatinine Estim Creat Clear Calc Estimated GFR POC Glucose 147 H 157 H 155 H Random Glucose Estimat Average Glucose Hemoglobin A1c % Calcium Total Bilirubin Direct Bilirubin AST ALT Alkaline Phosphatase Total Protein Albumin Triglycerides Cholesterol LDL Cholesterol, Calc HDL Cholesterol TSH Salicylates Urine Opiates Screen Urine Fentanyl Screen Acetaminophen Ur Barbiturates Screen Ur Phencyclidine Scrn Ur Amphetamines Screen U Benzodiazepines Scrn Urine Cocaine Screen U Marijuana (THC) Screen Ethyl Alcohol COVID-19 ([facility]) COVID-19 Socialite Com 04/09/21 04/09/21 04/10/21 07:59 16:39 06:23 WBC RBC Hgb Hct MCV MCH MCHC RDW Plt Count MPV Immature Gran % (Auto) Neut % (Auto) Lymph % (Auto) [place] % (Auto) Eos % (Auto) Baso % (Auto) Lymph # (Auto) [place] # (Auto) Eos # (Auto) Baso # (Auto) Abs Immat Gran (auto) Absolute Neuts (auto) Absolute Nucleated RBC Nucleated RBC % (auto) Sodium Potassium Chloride Carbon Dioxide Anion Gap BUN Creatinine Estim Creat Clear Calc Estimated GFR POC Glucose 183 H 139 H Random Glucose Estimat Average Glucose Hemoglobin A1c % Calcium Total Bilirubin Direct Bilirubin AST ALT Alkaline Phosphatase Total Protein Albumin Triglycerides Cholesterol LDL Cholesterol, Calc HDL Cholesterol TSH 0.88 Salicylates Urine Opiates Screen Urine Fentanyl Screen Acetaminophen Ur Barbiturates Screen Ur Phencyclidine Scrn Ur Amphetamines Screen U Benzodiazepines Scrn Urine Cocaine Screen U Marijuana (THC) Screen Ethyl Alcohol COVID-19 ([facility]) COVID-19 Clin Com Airway Mallampati Class: II TM Dist: >3cm Neck ROM: Full Denture: Upper and Lower Heart: rrr Lungs: cta Assessment and Plan Assessment Anesthesia Assessment: Anesthesia Plan Discussed and Chart Reviewed Final Anesthetic Review Family History of Problems with Anesthesia: No History of Problems with Anesthesia: No NPO: Yes ASA Class: III Final Preanesthetic Review: No Changes in Pt Med Stat, Meds/Allgs Chart Reviewed and Consent Obtained/Reviewed Patient Risk: Intermediate Procedure Risk: Intermediate Anesthetic Plan Anesthetic Plan: GA Disposition: Standard PACU
--- NOTE | 2021-04-10 07:25 | MHC.SHP ---
Pre-Procedural Eval Section A Date of Service: 04/10/21 The patient is an INPATIENT: Yes Changes since office visit: Yes Changes in Medication and Yes Patient answered all questions; No Cold of Flu in the past 2 weeks and No New Medical Problems The History & Physical has been completed within 30 days and I have reviewed it.: Yes Section B Chief Complaint: Depression,SI Allergies: Allergies Allergy/AdvReac Type Severity Reaction Status Date / Time NSAIDS (Non-Steroidal AdvReac Severe Shakiness Verified 04/04/21 11:52 Anti-Inflamma aspirin AdvReac Intermediate Shortness Verified 04/04/21 11:52 of Breath bupropion [From Wellbutrin] AdvReac Intermediate Agitated Verified 04/04/21 11:52 Plan I have reviewed the history and physical and performed a pertinent physical examination on my patient. No changes have occurred unless specified.
--- NOTE | 2021-04-10 07:26 | HO.ECTPROC ---
ECT Procedure Note Diagnosis/Treatment Date of Service: 04/10/21 Previous ECT Date: 04/07/21 Current Treatment Number: 2 Treatment: Series Interval Clinical Notes: pt doing somewhat vbetter no c/o side effects ECT Settings Device: THYMATRON DGx Electrode Placement: Right Unilateral Program/Pulse Width: 0.50 Energy Percent: 100 Seizure Duration By EEG (in seconds): 29 Medications Administration General Anesthetic: Etomidate Muscle Relaxant: Succinylcholine Ancillary Medications Anti-emetics: Zofran - Pre ECT Miscillaneous Medications: Propofol Airway Management Airway Management: Bag Mask Ventilation
[2021-04-10] MEDS: Acetaminophen 325 MG TABLET 650 MG PO ×2 (08:27→14:36)
[2021-04-10] MEDS: Gabapentin 100 MG CAPSULE PO ×3 (09:09→21:09)
[2021-04-10] MEDS: ARIPiprazole 10 MG TABLET PO (09:09)
[2021-04-10] MEDS: Venlafaxine HCl ER 150 MG CAP.ER.24H PO (09:09)
[2021-04-10] MEDS: Omeprazole 20 MG CAPSULE.DR PO ×2 (09:09→21:09)
[2021-04-10] MEDS: lisinopriL 5 MG TABLET PO (09:09)
--- NOTE | 2021-04-10 16:49 | P.PNPSI_ITS ---
Subjective Subjective Date of Service: 04/10/21 Reason For Visit: Depression,SI Interim History: Patient reported that his 2nd ECT overall went well. He had some muscle soreness but it is resolving on its own. He says his depression is definitely a little better than on admission. SI still comes and goes. Patient reports medication regimen is adequate and will discuss any changes with primary team provider, Dr. Ayala. Patient is wondering about how long he should stay on the unit for ECT and when he could continue ECT as an outpatient which he again will discuss with Dr. Ayala. No other complaints and no requests. Mental Status Exam Mental Status Exam Narrative: Pt is alert and oriented; behavior is cooperative, friendly and calm; patient is not in distress; dressed in casual attire with good hygiene; mood is described as depressed but a little better than on admission; affect congruent; eye contact appropriate; Speech is normal rate, volume and prosody and not pressured; no psychomotor agitation/retardation present; thought process is organized and goal directed; Thought content is on tx; otherwise pertinent to relevant topics and without any delusional content, paranoid ideations or grandiosity; denies any SI/HI. There is no evidence of perceptual disturbance. Patients insight and judgment appear intact. Diagnostics Vital Signs (24Hr): Vital Signs - 24 hr 04/09/21 21:45 04/10/21 06:00 04/10/21 06:33 Temperature 96.8 F 97.6 F Pulse Rate 80 85 66 Respiratory Rate 16 16 Blood Pressure 126/78 115/67 112/70 Pulse Oximetry 98 96 04/10/21 06:42 04/10/21 07:33 04/10/21 07:38 Temperature 96.8 F 97.4 F Pulse Rate 85 50 75 Respiratory Rate 18 16 22 H Blood Pressure 115/67 164/91 H 140/92 H Pulse Oximetry 98 97 95 04/10/21 07:43 04/10/21 07:48 04/10/21 08:03 Temperature Pulse Rate 75 76 76 Respiratory Rate 21 H 19 17 Blood Pressure 136/83 126/87 133/96 H Pulse Oximetry 96 96 96 04/10/21 08:14 04/10/21 09:22 Temperature 98.7 F 97.4 F Pulse Rate 64 64 Respiratory Rate 16 Blood Pressure 132/97 H 109/67 Pulse Oximetry 97 96 BMI result Body Mass Index 27.7 Labs Results: 04/03/21 14:24 04/11/21 08:26 Labs: Laboratory Results - last 48 hr 04/08/21 04/09/21 04/09/21 21:03 06:50 07:59 POC Glucose 157 H 155 H TSH 0.88 04/09/21 04/10/21 16:39 06:23 POC Glucose 183 H 139 H TSH Medications Medications Current Medications Acetaminophen (Acetaminophen 325 Mg Tablet) 650 mg PO Q6H PRN PRN Reason: Headache/Pain Mild Scale (1-3) Last Admin: 04/10/21 14:36 Dose: 650 mg Documented by: Al Hydroxide/Mg Hydroxide (Magnesium Hydrox/Alum Hydrox 30 Ml Oral.Susp) 30 ml PO Q6H PRN PRN Reason: Heartburn/Nausea Aripiprazole (Aripiprazole 10 Mg Tablet) 10 mg PO DAILY [facility] Last Admin: 04/10/21 09:09 Dose: 10 mg Documented by: Clonidine HCl (Clonidine Hcl 0.1 Mg Tablet) 0.1 mg PO BEDTIME [facility]; Protocol Last Admin: 04/09/21 21:32 Dose: 0.1 mg Documented by: Gabapentin (Gabapentin 100 Mg Capsule) 100 mg PO TID [facility] Last Admin: 04/10/21 14:31 Dose: 100 mg Documented by: Hydroxyzine HCl (Hydroxyzine Hcl 25 Mg Tablet) 25 mg PO QID PRN PRN Reason: Anxiety Last Admin: 04/06/21 18:23 Dose: 25 mg Documented by: Lactated Ringer's (Lr) 1,000 mls @ 50 mls/hr IVCONT .Q20H [facility] Last Admin: 04/10/21 09:11 Dose: Not Given Documented by: Levothyroxine Sodium (Levothyroxine Sodium 75 Mcg Tablet) 150 mcg PO DAILY@0600 [facility] Last Admin: 04/10/21 06:40 Dose: Not Given Documented by: Lisinopril (Lisinopril 5 Mg Tablet) 5 mg PO DAILY [facility]; Protocol Last Admin: 04/10/21 09:09 Dose: 5 mg Documented by: Magnesium Hydroxide (Milk Of Magnesia 30 Ml Oral.Susp) 30 ml PO DAILY PRN PRN Reason: Constipation Metformin HCl (Metformin Hcl Er 500 Mg Tab.Er.24h) 500 mg PO DAILY@1700 [facility] Nicotine (Nicotine 21 Mg Patch.Td24) 21 mg TRANSDERMA DAILY PRN PRN Reason: smoking cessation Last Admin: 04/07/21 09:36 Dose: 21 mg Documented by: Nicotine Polacrilex (Nicotine Polacrilex 2 Mg Gum) 4 mg BUCCAL Q2H PRN PRN Reason: Nicotine Cravings Last Admin: 04/08/21 14:30 Dose: 4 mg Documented by: Omeprazole (Omeprazole 20 Mg Capsule.Dr) 20 mg PO BID [facility] Last Admin: 04/10/21 09:09 Dose: 20 mg Documented by: Prazosin HCl (Prazosin Hcl 1 Mg Capsule) 2 mg PO BEDTIME [facility]; Protocol Last Admin: 04/09/21 21:32 Dose: 2 mg Documented by: Prazosin HCl (Prazosin Hcl 5 Mg Capsule) 5 mg PO BEDTIME [facility]; Protocol Last Admin: 04/09/21 21:31 Dose: 5 mg Documented by: Quetiapine Fumarate (Quetiapine Fumarate 25 Mg Tablet) 25 mg PO Q4H PRN PRN Reason: anxiety/restlessness Tamsulosin HCl (Tamsulosin Hcl 0.4 Mg Capsule) 0.8 mg PO BEDTIME [facility] Last Admin: 04/09/21 21:32 Dose: 0.8 mg Documented by: Trazodone HCl (Trazodone Hcl 50 Mg Tablet) 150 mg PO BEDTIME [facility] Last Admin: 04/09/21 21:32 Dose: 150 mg Documented by: Venlafaxine HCl (Venlafaxine Hcl Er 150 Mg Cap.Er.24h) 150 mg PO DAILY [facility] Last Admin: 04/10/21 09:09 Dose: 150 mg Documented by: Allergies Allergies Allergy/AdvReac Type Severity Reaction Status Date / Time NSAIDS (Non-Steroidal AdvReac Severe Shakiness Verified 04/04/21 11:52 Anti-Inflamma aspirin AdvReac Intermediate Shortness Verified 04/04/21 11:52 of Breath bupropion [From Wellbutrin] AdvReac Intermediate Agitated Verified 04/04/21 11:52 Assessment & Plan Assessment & Plan (1) Major depressive disorder, recurrent severe without psychotic features: Status: Acute Code(s): F33.2 - Major depressive disorder, recurrent severe without psychotic features Assessment and Plan: Continue ECT taper Effexor literature given regarding bipolar to question of mixed episodes consider lithium Lamictal (2) Hyperglycemia: Status: Acute Code(s): R73.9 - Hyperglycemia, unspecified Assessment and Plan: Continue metformin (3) Chronic post-traumatic stress disorder (PTSD): Status: Acute Code(s): F43.12 - Post-traumatic stress disorder, chronic Assessment and Plan: Continue prazosin grounding tech and techniques relaxation techniques Plan 04/08: no medication changes, pt tolerating ECT and denies adverse effects 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 Patient continues to tolerate ECT following 2nd treatment; still depressed, still intermittent SI however he reports his mood is little better than on admission. No requests. I spent minutes with the patient and/or on the patient floor today, greater than?50% of which was spent counseling/coordinating care. Reason for contiued inpatient stay Substantial Risk for: rapid decompensation
[2021-04-10] MEDS: metFORMIN HCl ER 500 MG TAB.ER.24H PO (17:09)
[2021-04-10 18:44] LABS: Glucose, Whole Blood 155 mg/dL (60-115)
[2021-04-10] MEDS: Tamsulosin HCL 0.4 MG CAPSULE 0.8 MG PO (21:08)
[2021-04-10] MEDS: cloNIDine HCL 0.1 MG TABLET PO (21:08)
[2021-04-10] MEDS: traZODone HCL 50 MG TABLET 150 MG PO (21:09)
[2021-04-10] MEDS: Prazosin HCL 1 MG CAPSULE 2 MG PO (21:09)
[2021-04-10] MEDS: Prazosin HCL 5 MG CAPSULE PO (21:09)
[2021-04-11 05:50] LABS: Glucose, Whole Blood 123 mg/dL (60-115)
[2021-04-11] MEDS: Levothyroxine Sodium 75 MCG TABLET 150 MCG PO (05:51)
[2021-04-11 06:00] VITALS: BP 103/67; PULSE 83; TEMP 36.8; O2SAT 96
--- NOTE | 2021-04-11 08:21 | HO.POSTANES ---
Post Anesthesia Evaluation Post Anesthesia Evaluation Vital Signs: Vital Signs Temp Pulse BP Pulse Ox 04/11/21 06:00 98.3 F 83 103/67 96 Anesthesia: General Mental Status: Awake Pain Control: Satisfactory Nausea/Vomiting: None Hydration: Adequate Anesthesia-Related Issues: No Anes. Related Issues
[2021-04-11] MEDS: Venlafaxine HCl ER 150 MG CAP.ER.24H PO (08:44)
[2021-04-11] MEDS: Omeprazole 20 MG CAPSULE.DR PO ×2 (08:44→20:58)
[2021-04-11] MEDS: ARIPiprazole 10 MG TABLET PO (08:44)
[2021-04-11] MEDS: Gabapentin 100 MG CAPSULE PO ×2 (08:44→14:38)
[2021-04-11] MEDS: lisinopriL 5 MG TABLET PO (08:44)
[2021-04-11 08:48] LABS: Creatinine Clr Calc Pharmacy 86.4; Estimated Glomerular Filt Rate > 60
[2021-04-11 08:49] LABS: Anion Gap 11 (12-20); Blood Urea Nitrogen 18 mg/dL (9-16); Calcium 9.4 mg/dL (8.4-10.2); Carbon Dioxide 27 mmol/L (22-29); Chloride 106 mmol/L (96-108); Creatinine Clr Calc Pharmacy 89.8; Estimated Glomerular Filt Rate > 60; Glucose Random 147 mg/dL (60-115); Potassium 4.3 mmol/L (3.3-5.1); Sodium 140 mmol/L (135-145)
--- NOTE | 2021-04-11 15:42 | P.PNPSI_ITS ---
Subjective Subjective Date of Service: 04/11/21 Reason For Visit: Depression,SI Subjective Notes: [place] Warning and Conditional Voluntary Healthcare Proxy: No Guardianship: No Medication Compliance: Yes Side effects from medications: No Attending Groups: Intermittent Review of Systems Acute medical concerns: Yes inc bl sugar Medical Review of Systems: unchanged Mental Status Exam Mental Status Exam Patient Appearance: Well Grooomed Patient Orientation: Person, Place, Time and Situation Level of Consciousness: Awake Patient Behavior: Appropriate Mood Description: Depressed, Apprehensive and Expansive Affect Description: Labile, Apprehensive and Expansive Patient Cognition Impaired: No Memory Description: Intact Hallucinations: None Thought Content: positive for Suicidal Ideation (denies here ) and negative for Homicidal Ideation Depressive Symptoms: Insomnia, Increased Irritability, Loss of Int. in Activity and Feelings of Worthlessness Judgement: Fair Judgement and Insight: some odd expansive affect at times Diagnostics Vital Signs (24Hr): Vital Signs - 24 hr 04/10/21 18:00 04/11/21 06:00 Temperature 98.2 F 98.3 F Pulse Rate 64 83 Respiratory Rate 16 Blood Pressure 111/80 103/67 Pulse Oximetry 96 96 BMI result Body Mass Index 27.7 Labs Results: 04/03/21 14:24 04/11/21 08:26 Labs: Laboratory Results - last 48 hr 04/09/21 04/10/21 04/10/21 16:39 06:23 17:22 Sodium Potassium Chloride Carbon Dioxide Anion Gap BUN Creatinine Estim Creat Clear Calc Estimated GFR POC Glucose 183 H 139 H 155 H Random Glucose Calcium 04/11/21 04/11/21 04/11/21 05:47 08:26 08:26 Sodium 140 Potassium 4.3 Chloride 106 Carbon Dioxide 27 Anion Gap 11 L BUN 18 H Creatinine 1.06 1.02 Estim Creat Clear Calc 86.4 89.8 Estimated GFR > 60 > 60 POC Glucose 123 H Random Glucose 147 H Calcium 9.4 Medications Medications Current Medications Acetaminophen (Acetaminophen 325 Mg Tablet) 650 mg PO Q6H PRN PRN Reason: Headache/Pain Mild Scale (1-3) Last Admin: 04/10/21 14:36 Dose: 650 mg Documented by: Al Hydroxide/Mg Hydroxide (Magnesium Hydrox/Alum Hydrox 30 Ml Oral.Susp) 30 ml PO Q6H PRN PRN Reason: Heartburn/Nausea Aripiprazole (Aripiprazole 10 Mg Tablet) 10 mg PO DAILY [facility] Last Admin: 04/11/21 08:44 Dose: 10 mg Documented by: Clonidine HCl (Clonidine Hcl 0.1 Mg Tablet) 0.1 mg PO BEDTIME [facility]; Protocol Last Admin: 04/10/21 21:08 Dose: 0.1 mg Documented by: Hydroxyzine HCl (Hydroxyzine Hcl 25 Mg Tablet) 25 mg PO QID PRN PRN Reason: Anxiety Last Admin: 04/06/21 18:23 Dose: 25 mg Documented by: Levothyroxine Sodium (Levothyroxine Sodium 75 Mcg Tablet) 150 mcg PO DAILY@0600 [facility] Last Admin: 04/11/21 05:51 Dose: 150 mcg Documented by: Lisinopril (Lisinopril 5 Mg Tablet) 5 mg PO DAILY [facility]; Protocol Last Admin: 04/11/21 08:44 Dose: 5 mg Documented by: Magnesium Hydroxide (Milk Of Magnesia 30 Ml Oral.Susp) 30 ml PO DAILY PRN PRN Reason: Constipation Metformin HCl (Metformin Hcl Er 500 Mg Tab.Er.24h) 500 mg PO DAILY@1700 [facility] Last Admin: 04/10/21 17:09 Dose: 500 mg Documented by: Nicotine (Nicotine 21 Mg Patch.Td24) 21 mg TRANSDERMA DAILY PRN PRN Reason: smoking cessation Last Admin: 04/07/21 09:36 Dose: 21 mg Documented by: Nicotine Polacrilex (Nicotine Polacrilex 2 Mg Gum) 4 mg BUCCAL Q2H PRN PRN Reason: Nicotine Cravings Last Admin: 04/08/21 14:30 Dose: 4 mg Documented by: Omeprazole (Omeprazole 20 Mg Capsule.Dr) 20 mg PO BID [facility] Last Admin: 04/11/21 08:44 Dose: 20 mg Documented by: Prazosin HCl (Prazosin Hcl 1 Mg Capsule) 2 mg PO BEDTIME [facility]; Protocol Last Admin: 04/10/21 21:09 Dose: 2 mg Documented by: Prazosin HCl (Prazosin Hcl 5 Mg Capsule) 5 mg PO BEDTIME [facility]; Protocol Last Admin: 04/10/21 21:09 Dose: 5 mg Documented by: Quetiapine Fumarate (Quetiapine Fumarate 25 Mg Tablet) 25 mg PO Q4H PRN PRN Reason: anxiety/restlessness Quetiapine Fumarate (Quetiapine Fumarate 50 Mg Tablet) 50 mg PO BEDTIME [facility] Tamsulosin HCl (Tamsulosin Hcl 0.4 Mg Capsule) 0.8 mg PO BEDTIME [facility] Last Admin: 04/10/21 21:08 Dose: 0.8 mg Documented by: Trazodone HCl (Trazodone Hcl 50 Mg Tablet) 50 mg PO BEDTIME [facility] Venlafaxine HCl (Venlafaxine Hcl Er 37.5 Mg Cap.Er.24h) 112.5 mg PO DAILY [facility] Allergies Allergies Allergy/AdvReac Type Severity Reaction Status Date / Time NSAIDS (Non-Steroidal AdvReac Severe Shakiness Verified 04/04/21 11:52 Anti-Inflamma aspirin AdvReac Intermediate Shortness Verified 04/04/21 11:52 of Breath bupropion [From Wellbutrin] AdvReac Intermediate Agitated Verified 04/04/21 11:52 Assessment & Plan Assessment & Plan (1) Major depressive disorder, recurrent severe without psychotic features: Status: Acute Code(s): F33.2 - Major depressive disorder, recurrent severe without psychotic features Assessment and Plan: Continue ECT taper Effexor literature given regarding bipolar to question of mixed episodes consider lithium Lamictal consider tx bipolar 2 ? 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 Patient continues to tolerate ECT following 2nd treatment; still depressed, still intermittent SI however he reports his mood is little better than on admission. No requests. I spent minutes with the patient and/or on the patient floor today, greater than?50% of which was spent counseling/coordinating care. Reason for contiued inpatient stay Substantial Risk for: harm to self and rapid decompensation
[2021-04-11] MEDS: metFORMIN HCl ER 500 MG TAB.ER.24H PO (16:55)
[2021-04-11 17:04] LABS: Glucose, Whole Blood 160 mg/dL (60-115)
[2021-04-11 18:00] VITALS: BP 133/88; PULSE 73; RESP 16; TEMP 36.6
[2021-04-11] MEDS: QUEtiapine Fumarate 50 MG TABLET PO (20:58)
[2021-04-11] MEDS: Tamsulosin HCL 0.4 MG CAPSULE 0.8 MG PO (20:58)
[2021-04-11] MEDS: Prazosin HCL 1 MG CAPSULE 2 MG PO (20:58)
[2021-04-11] MEDS: Prazosin HCL 5 MG CAPSULE PO (20:58)
[2021-04-11] MEDS: cloNIDine HCL 0.1 MG TABLET PO (20:58)
[2021-04-11] MEDS: traZODone HCL 50 MG TABLET PO (20:58)
[2021-04-12] VITALS (10 sets, daily range): BP systolic 98–150; BP diastolic 46–87; PULSE 62–78; RESP 16–21; TEMP 36.2–36.7; O2SAT 95–97; BMI 27.6
[2021-04-12 05:44] LABS: Glucose, Whole Blood 140 mg/dL (60-115)
--- NOTE | 2021-04-12 06:51 | P.CONAN_ITS ---
[facility] Active Problems Active Problems: All Active Problems (Updated 04/05/21 @ 13:04 by Milton Ayala MD) Major depressive disorder, recurrent severe without psychotic features (Acute) Chronic post-traumatic stress disorder (PTSD) (Acute) Hyperglycemia (Acute) Depression (Acute) Past Medical History Medical History (Updated 04/05/21 @ 13:04 by Milton Ayala MD) Acute post-traumatic stress disorder Anxiety Chronic post-traumatic stress disorder (PTSD) Depression Hypertension Hypothyroidism Major depressive disorder, recurrent severe without psychotic features PTSD (post-traumatic stress disorder) Family History Family history of problems with anesthesia: No Surgical History History of Problems with Anesthesia: No Social History Social History Household Members: Family Housing: House Do you presently have visiting nurse or other home services: No Patient Tobacco Use Status: Current everyday Tobacco user Tobacco use type: Cigarette Cigarette Packs Per Day: 1 Cigarettes Per Day: 20.0 Years Smoked: 10+ Smoked in Last 30 Days: Yes Patient Interested in Nicotine Replacement: Yes Patient Given Instructions on How to Stop Smoking: Yes Date Education Initiated: 04/04/21 Second Hand Smoke Exposure: Yes Use of substances other than those prescribed or required for medical reasons: Yes Substance Use Type: Marijuana Substance Use Frequency: Daily Last Used Substance: Just Prior to Admission Currently Displaying Signs/Symptoms of Drug Intoxication Withdrawal: No Any prior treatment program specific to substance use: No Have you been hit, kicked, punched, or otherwise hurt by someone within the past year? If so, by whom?: No Do you feel safe in your current relationship?: Yes Is there a partner from a previous relationship who is making you feel unsafe now?: No Are you made to feel afraid or neglected: No Are you DNR?: No Advance Directives: No Advance Directives Information Provided: Yes Healthcare Proxy: No Guardian: No Do you have thoughts of harming others: None Do you have a plan to hurt others: No Plan Recently lost weight without trying: No How much weight loss: Not applicable Eating poorly because of decreased appetite: No Nutrition screen score: 0 Nutrition Risks: No Nutritional Risk Poor oral hygiene: No service: Yes (Honorable discharge from Service as [employer] [facility]) Sexual orientation: Did not discuss Meds Allergies Allergy/AdvReac Type Severity Reaction Status Date / Time NSAIDS (Non-Steroidal AdvReac Severe Shakiness Verified 04/04/21 11:52 Anti-Inflamma aspirin AdvReac Intermediate Shortness Verified 04/04/21 11:52 of Breath bupropion [From Wellbutrin] AdvReac Intermediate Agitated Verified 04/04/21 11:52 Active Medications: Current Medications Acetaminophen (Acetaminophen 325 Mg Tablet) 650 mg PO Q6H PRN PRN Reason: Headache/Pain Mild Scale (1-3) Last Admin: 04/10/21 14:36 Dose: 650 mg Documented by: Al Hydroxide/Mg Hydroxide (Magnesium Hydrox/Alum Hydrox 30 Ml Oral.Susp) 30 ml PO Q6H PRN PRN Reason: Heartburn/Nausea Aripiprazole (Aripiprazole 10 Mg Tablet) 10 mg PO DAILY [facility] Last Admin: 04/11/21 08:44 Dose: 10 mg Documented by: Clonidine HCl (Clonidine Hcl 0.1 Mg Tablet) 0.1 mg PO BEDTIME [facility]; Protocol Last Admin: 04/11/21 20:58 Dose: 0.1 mg Documented by: Hydroxyzine HCl (Hydroxyzine Hcl 25 Mg Tablet) 25 mg PO QID PRN PRN Reason: Anxiety Last Admin: 04/06/21 18:23 Dose: 25 mg Documented by: Levothyroxine Sodium (Levothyroxine Sodium 75 Mcg Tablet) 150 mcg PO DAILY@0600 [facility] Last Admin: 04/11/21 05:51 Dose: 150 mcg Documented by: Lisinopril (Lisinopril 5 Mg Tablet) 5 mg PO DAILY [facility]; Protocol Last Admin: 04/11/21 08:44 Dose: 5 mg Documented by: Magnesium Hydroxide (Milk Of Magnesia 30 Ml Oral.Susp) 30 ml PO DAILY PRN PRN Reason: Constipation Metformin HCl (Metformin Hcl Er 500 Mg Tab.Er.24h) 500 mg PO DAILY@1700 [facility] Last Admin: 04/11/21 16:55 Dose: 500 mg Documented by: Nicotine (Nicotine 21 Mg Patch.Td24) 21 mg TRANSDERMA DAILY PRN PRN Reason: smoking cessation Last Admin: 04/07/21 09:36 Dose: 21 mg Documented by: Nicotine Polacrilex (Nicotine Polacrilex 2 Mg Gum) 4 mg BUCCAL Q2H PRN PRN Reason: Nicotine Cravings Last Admin: 04/08/21 14:30 Dose: 4 mg Documented by: Omeprazole (Omeprazole 20 Mg Capsule.Dr) 20 mg PO BID [facility] Last Admin: 04/11/21 20:58 Dose: 20 mg Documented by: Prazosin HCl (Prazosin Hcl 1 Mg Capsule) 2 mg PO BEDTIME [facility]; Protocol Last Admin: 04/11/21 20:58 Dose: 2 mg Documented by: Prazosin HCl (Prazosin Hcl 5 Mg Capsule) 5 mg PO BEDTIME [facility]; Protocol Last Admin: 04/11/21 20:58 Dose: 5 mg Documented by: Quetiapine Fumarate (Quetiapine Fumarate 25 Mg Tablet) 25 mg PO Q4H PRN PRN Reason: anxiety/restlessness Quetiapine Fumarate (Quetiapine Fumarate 50 Mg Tablet) 50 mg PO BEDTIME [facility] Last Admin: 04/11/21 20:58 Dose: 50 mg Documented by: Tamsulosin HCl (Tamsulosin Hcl 0.4 Mg Capsule) 0.8 mg PO BEDTIME [facility] Last Admin: 04/11/21 20:58 Dose: 0.8 mg Documented by: Trazodone HCl (Trazodone Hcl 50 Mg Tablet) 50 mg PO BEDTIME [facility] Last Admin: 04/11/21 20:58 Dose: 50 mg Documented by: Venlafaxine HCl (Venlafaxine Hcl Er 37.5 Mg Cap.Er.24h) 112.5 mg PO DAILY [facility] Home Medications Medication Instructions Recorded Confirmed Last Taken Type aripiprazole 15 mg tablet 15 mg PO DAILY 04/03/21 04/03/21 04/03/21 History clonidine HCl 0.1 mg tablet 1 tab PO BEDTIME 04/03/21 04/03/21 04/02/21 History gabapentin 400 mg capsule 1 cap PO TID 04/03/21 04/03/21 04/03/21 History levothyroxine 150 mcg tablet 150 mcg PO DAILY@0600 04/03/21 04/03/21 04/03/21 History lisinopril 5 mg tablet 1 tab PO DAILY 04/03/21 04/03/21 04/03/21 History lorazepam 0.5 mg tablet 1 tab PO TID PRN 04/03/21 04/03/21 Unknown History omeprazole 20 mg capsule,delayed 1 cap PO BID 04/03/21 04/03/21 04/03/21 History release prazosin 1 mg capsule 2 mg PO BEDTIME 04/03/21 04/03/21 04/02/21 History prazosin 5 mg capsule 5 mg PO BEDTIME 04/03/21 04/03/21 04/02/21 History sildenafil 100 mg tablet 1 tab PO DAILY PRN 04/03/21 04/03/21 Unknown History tamsulosin 0.4 mg capsule 2 cap PO BEDTIME 04/03/21 04/03/21 04/02/21 History trazodone 100 mg tablet 150 mg PO BEDTIME 04/03/21 04/03/21 04/02/21 History venlafaxine 150 mg 150 mg PO DAILY 04/03/21 04/03/21 04/03/21 History capsule,extended release 24 hr venlafaxine 37.5 mg 37.5 mg PO DAILY 04/03/21 04/03/21 04/03/21 History tablet,extended release 24 hr Exam Exam Date and Time: April 12, 2021 0651 Height,Weight and Vital Signs: Height 5 ft 8 in Weight 82.554 kg Last Vital Signs Temp 97.6 F 04/12/21 06:45 Pulse 62 04/12/21 06:45 Resp 16 04/12/21 06:45 BP 108/76 04/12/21 06:45 Pulse Ox 95 04/12/21 06:45 Pertinent Lab Results Pertinent Lab Results: Laboratory Tests 04/03/21 04/03/21 04/03/21 14:24 14:24 14:25 WBC 7.4 RBC 5.46 Hgb 17.7 Hct 51.9 MCV 95.1 MCH 32.4 MCHC 34.1 RDW 13.0 Plt Count 181 MPV 9.9 Immature Gran % (Auto) 0.4 Neut % (Auto) 48.2 Lymph % (Auto) 45.0 H [place] % (Auto) 5.9 Eos % (Auto) 0.1 Baso % (Auto) 0.4 Lymph # (Auto) 3.3 [place] # (Auto) 0.4 Eos # (Auto) 0.0 Baso # (Auto) 0.0 Abs Immat Gran (auto) 0.03 Absolute Neuts (auto) 3.5 Absolute Nucleated RBC 0.000 Nucleated RBC % (auto) 0.0 Sodium 139 Potassium 4.1 Chloride 107 Carbon Dioxide 25 Anion Gap 11 L BUN 12 Creatinine 1.04 Estim Creat Clear Calc 88.6 Estimated GFR > 60 POC Glucose Random Glucose 194 H Estimat Average Glucose Hemoglobin A1c % Calcium 9.2 Total Bilirubin 0.3 Direct Bilirubin < 0.2 AST 27 ALT 63 H Alkaline Phosphatase 96 Total Protein 6.9 Albumin 4.2 Triglycerides Cholesterol LDL Cholesterol, Calc HDL Cholesterol TSH Salicylates < 5.0 L Urine Opiates Screen Urine Fentanyl Screen Acetaminophen < 1 Ur Barbiturates Screen Ur Phencyclidine Scrn Ur Amphetamines Screen U Benzodiazepines Scrn Urine Cocaine Screen U Marijuana (THC) Screen Ethyl Alcohol < 10 COVID-19 ([facility]) COVID-19 Clin Com 04/03/21 04/03/21 04/04/21 14:25 14:27 10:50 WBC RBC Hgb Hct MCV MCH MCHC RDW Plt Count MPV Immature Gran % (Auto) Neut % (Auto) Lymph % (Auto) [place] % (Auto) Eos % (Auto) Baso % (Auto) Lymph # (Auto) [place] # (Auto) Eos # (Auto) Baso # (Auto) Abs Immat Gran (auto) Absolute Neuts (auto) Absolute Nucleated RBC Nucleated RBC % (auto) Sodium Potassium Chloride Carbon Dioxide Anion Gap BUN Creatinine Estim Creat Clear Calc Estimated GFR POC Glucose Random Glucose Estimat Average Glucose Hemoglobin A1c % Calcium Total Bilirubin Direct Bilirubin AST ALT Alkaline Phosphatase Total Protein Albumin Triglycerides Cholesterol LDL Cholesterol, Calc HDL Cholesterol TSH Salicylates Urine Opiates Screen Not Detected Urine Fentanyl Screen POSITIVE H Acetaminophen Ur Barbiturates Screen Not Detected Ur Phencyclidine Scrn Not Detected Ur Amphetamines Screen Not Detected U Benzodiazepines Scrn Not Detected Urine Cocaine Screen Not Detected U Marijuana (THC) Screen POSITIVE H Ethyl Alcohol COVID-19 ([facility]) Negative Negative COVID-19 Clin Com See Note See Note 04/05/21 04/05/21 04/05/21 08:17 08:17 22:41 WBC RBC Hgb Hct MCV MCH MCHC RDW Plt Count MPV Immature Gran % (Auto) Neut % (Auto) Lymph % (Auto) [place] % (Auto) Eos % (Auto) Baso % (Auto) Lymph # (Auto) [place] # (Auto) Eos # (Auto) Baso # (Auto) Abs Immat Gran (auto) Absolute Neuts (auto) Absolute Nucleated RBC Nucleated RBC % (auto) Sodium Potassium Chloride Carbon Dioxide Anion Gap BUN Creatinine Estim Creat Clear Calc Estimated GFR POC Glucose 192 H Random Glucose Estimat Average Glucose 160 Hemoglobin A1c % 7.2 Calcium Total Bilirubin Direct Bilirubin AST ALT Alkaline Phosphatase Total Protein Albumin Triglycerides 211 Cholesterol 182 LDL Cholesterol, Calc 110 HDL Cholesterol 30 TSH Salicylates Urine Opiates Screen Urine Fentanyl Screen Acetaminophen Ur Barbiturates Screen Ur Phencyclidine Scrn Ur Amphetamines Screen U Benzodiazepines Scrn Urine Cocaine Screen U Marijuana (THC) Screen Ethyl Alcohol COVID-19 ([facility]) COVID-19 [employer] Com 04/06/21 04/06/21 04/07/21 05:39 19:30 05:25 WBC RBC Hgb Hct MCV MCH MCHC RDW Plt Count MPV Immature Gran % (Auto) Neut % (Auto) Lymph % (Auto) [place] % (Auto) Eos % (Auto) Baso % (Auto) Lymph # (Auto) [place] # (Auto) Eos # (Auto) Baso # (Auto) Abs Immat Gran (auto) Absolute Neuts (auto) Absolute Nucleated RBC Nucleated RBC % (auto) Sodium Potassium Chloride Carbon Dioxide Anion Gap BUN Creatinine Estim Creat Clear Calc Estimated GFR POC Glucose 145 H 190 H 144 H Random Glucose Estimat Average Glucose Hemoglobin A1c % Calcium Total Bilirubin Direct Bilirubin AST ALT Alkaline Phosphatase Total Protein Albumin Triglycerides Cholesterol LDL Cholesterol, Calc HDL Cholesterol TSH Salicylates Urine Opiates Screen Urine Fentanyl Screen Acetaminophen Ur Barbiturates Screen Ur Phencyclidine Scrn Ur Amphetamines Screen U Benzodiazepines Scrn Urine Cocaine Screen U Marijuana (THC) Screen Ethyl Alcohol COVID-19 ([facility]) COVID-19 [employer] Com 04/07/21 04/08/21 04/09/21 21:21 21:03 06:50 WBC RBC Hgb Hct MCV MCH MCHC RDW Plt Count MPV Immature Gran % (Auto) Neut % (Auto) Lymph % (Auto) [place] % (Auto) Eos % (Auto) Baso % (Auto) Lymph # (Auto) [place] # (Auto) Eos # (Auto) Baso # (Auto) Abs Immat Gran (auto) Absolute Neuts (auto) Absolute Nucleated RBC Nucleated RBC % (auto) Sodium Potassium Chloride Carbon Dioxide Anion Gap BUN Creatinine Estim Creat Clear Calc Estimated GFR POC Glucose 147 H 157 H 155 H Random Glucose Estimat Average Glucose Hemoglobin A1c % Calcium Total Bilirubin Direct Bilirubin AST ALT Alkaline Phosphatase Total Protein Albumin Triglycerides Cholesterol LDL Cholesterol, Calc HDL Cholesterol TSH Salicylates Urine Opiates Screen Urine Fentanyl Screen Acetaminophen Ur Barbiturates Screen Ur Phencyclidine Scrn Ur Amphetamines Screen U Benzodiazepines Scrn Urine Cocaine Screen U Marijuana (THC) Screen Ethyl Alcohol COVID-19 ([facility]) COVID-19 [place] 04/09/21 04/09/21 04/10/21 07:59 16:39 06:23 WBC RBC Hgb Hct MCV MCH MCHC RDW Plt Count MPV Immature Gran % (Auto) Neut % (Auto) Lymph % (Auto) [place] % (Auto) Eos % (Auto) Baso % (Auto) Lymph # (Auto) [place] # (Auto) Eos # (Auto) Baso # (Auto) Abs Immat Gran (auto) Absolute Neuts (auto) Absolute Nucleated RBC Nucleated RBC % (auto) Sodium Potassium Chloride Carbon Dioxide Anion Gap BUN Creatinine Estim Creat Clear Calc Estimated GFR POC Glucose 183 H 139 H Random Glucose Estimat Average Glucose Hemoglobin A1c % Calcium Total Bilirubin Direct Bilirubin AST ALT Alkaline Phosphatase Total Protein Albumin Triglycerides Cholesterol LDL Cholesterol, Calc HDL Cholesterol TSH 0.88 Salicylates Urine Opiates Screen Urine Fentanyl Screen Acetaminophen Ur Barbiturates Screen Ur Phencyclidine Scrn Ur Amphetamines Screen U Benzodiazepines Scrn Urine Cocaine Screen U Marijuana (THC) Screen Ethyl Alcohol COVID-19 ([facility]) COVID-[employer] [place] 04/10/21 04/11/21 04/11/21 17:22 05:47 08:26 WBC RBC Hgb Hct MCV MCH MCHC RDW Plt Count MPV Immature Gran % (Auto) Neut % (Auto) Lymph % (Auto) [place] % (Auto) Eos % (Auto) Baso % (Auto) Lymph # (Auto) [place] # (Auto) Eos # (Auto) Baso # (Auto) Abs Immat Gran (auto) Absolute Neuts (auto) Absolute Nucleated RBC Nucleated RBC % (auto) Sodium Potassium Chloride Carbon Dioxide Anion Gap BUN Creatinine 1.06 Estim Creat Clear Calc 86.4 Estimated GFR > 60 POC Glucose 155 H 123 H Random Glucose Estimat Average Glucose Hemoglobin A1c % Calcium Total Bilirubin Direct Bilirubin AST ALT Alkaline Phosphatase Total Protein Albumin Triglycerides Cholesterol LDL Cholesterol, Calc HDL Cholesterol TSH Salicylates Urine Opiates Screen Urine Fentanyl Screen Acetaminophen Ur Barbiturates Screen Ur Phencyclidine Scrn Ur Amphetamines Screen U Benzodiazepines Scrn Urine Cocaine Screen U Marijuana (THC) Screen Ethyl Alcohol COVID-19 ([facility]) COVID-[employer] [place] 04/11/21 04/11/21 04/12/21 08:26 16:59 05:39 WBC RBC Hgb Hct MCV MCH MCHC RDW Plt Count MPV Immature Gran % (Auto) Neut % (Auto) Lymph % (Auto) [place] % (Auto) Eos % (Auto) Baso % (Auto) Lymph # (Auto) [place] # (Auto) Eos # (Auto) Baso # (Auto) Abs Immat Gran (auto) Absolute Neuts (auto) Absolute Nucleated RBC Nucleated RBC % (auto) Sodium 140 Potassium 4.3 Chloride 106 Carbon Dioxide 27 Anion Gap 11 L BUN 18 H Creatinine 1.02 Estim Creat Clear Calc 89.8 Estimated GFR > 60 POC Glucose 160 H 140 H Random Glucose 147 H Estimat Average Glucose Hemoglobin A1c % Calcium 9.4 Total Bilirubin Direct Bilirubin AST ALT Alkaline Phosphatase Total Protein Albumin Triglycerides Cholesterol LDL Cholesterol, Calc HDL Cholesterol TSH Salicylates Urine Opiates Screen Urine Fentanyl Screen Acetaminophen Ur Barbiturates Screen Ur Phencyclidine Scrn Ur Amphetamines Screen U Benzodiazepines Scrn Urine Cocaine Screen U Marijuana (THC) Screen Ethyl Alcohol COVID-19 ([facility]) COVID-19 Clin Com Airway Mallampati Class: II TM Dist: >3cm Neck ROM: Full Denture: Upper and Lower Heart: rrr Lungs: cta Assessment and Plan Assessment Anesthesia Assessment: Anesthesia Plan Discussed and Chart Reviewed Final Anesthetic Review Family History of Problems with Anesthesia: No History of Problems with Anesthesia: No NPO: Yes ASA Class: III Final Preanesthetic Review: No Changes in Pt Med Stat, Meds/Allgs Chart Reviewed and Consent Obtained/Reviewed Patient Risk: Intermediate Procedure Risk: Intermediate Anesthetic Plan Anesthetic Plan: GA Disposition: Standard PACU
--- NOTE | 2021-04-12 07:28 | MHC.SHP ---
Pre-Procedural Eval Section A Date of Service: 04/12/21 The patient is an INPATIENT: Yes Changes since office visit: Yes New Medical Problems, Yes Changes in Medication and Yes Patient answered all questions; No Cold of Flu in the past 2 weeks The History & Physical has been completed within 30 days and I have reviewed it.: Yes Section B Chief Complaint: Depression,SI Allergies: Allergies Allergy/AdvReac Type Severity Reaction Status Date / Time NSAIDS (Non-Steroidal AdvReac Severe Shakiness Verified 04/04/21 11:52 Anti-Inflamma aspirin AdvReac Intermediate Shortness Verified 04/04/21 11:52 of Breath bupropion [From Wellbutrin] AdvReac Intermediate Agitated Verified 04/04/21 11:52 Plan I have reviewed the history and physical and performed a pertinent physical examination on my patient. No changes have occurred unless specified.
--- NOTE | 2021-04-12 07:28 | HO.ECTPROC ---
ECT Procedure Note Diagnosis/Treatment Date of Service: 04/12/21 Diagnosis: Bipolar disorder Previous ECT Date: 04/10/21 Current Treatment Number: 3 Interval Clinical Notes: pt somewhat improved no c/o side effects ECT Settings Device: THYMATRON DGx Electrode Placement: Right Unilateral Program/Pulse Width: 0.50 Energy Percent: 100 Seizure Duration By EEG (in seconds): 30 Medications Administration General Anesthetic: Etomidate (16) Muscle Relaxant: Succinylcholine (100) Ancillary Medications Anti-emetics: Zofran - Pre ECT Miscillaneous Medications: Propofol Airway Management Airway Management: Bag Mask Ventilation Treatment Recommendations No Changes Recommended: No change Pt Tolerated Procedure w/o Issue: Yes
[2021-04-12] MEDS: Acetaminophen 325 MG TABLET 650 MG PO (08:14)
[2021-04-12] MEDS: Omeprazole 20 MG CAPSULE.DR PO ×2 (09:08→21:49)
[2021-04-12] MEDS: lisinopriL 5 MG TABLET PO (09:09)
[2021-04-12] MEDS: ARIPiprazole 10 MG TABLET PO (09:09)
[2021-04-12] MEDS: Levothyroxine Sodium 75 MCG TABLET 150 MCG PO (09:09)
[2021-04-12] MEDS: Venlafaxine HCl ER 37.5 MG CAP.ER.24H 112.5 MG PO (09:09)
--- NOTE | 2021-04-12 14:54 | HO.PSYCHPN ---
Subjective Subjective Date of Service: 04/12/21 Reason For Visit: Depression,SI Subjective Notes: Conditional Voluntary Guardianship: No Interim History: See ECT note patient not overly agitated or combative has Medication Compliance: Yes Attending Groups: Intermittent Mental Status Exam Mental Status Exam Narrative: Patient is an anxious-appearing male cooperative to the interview. He has an intense affect. His speech is clear goal-directed logical normal [place]. His mood is depressed anxious affect constricted with some agitation. He is hopeless helpless with thoughts that he would be better off and unclear whether he can maintain his safety thoughts to overdose. No psychotic symptoms he is asking for help. Insight good in that he is asking for help has been somewhat resistant to inpatient treatment impulse control fair if not in a safe setting has been feeling increasingly more stable Diagnostics Vital Signs (24Hr): Vital Signs - 24 hr 04/11/21 18:00 04/12/21 06:00 04/12/21 06:11 Temperature 98 F 97.4 F 97.4 F Pulse Rate 73 72 72 Respiratory Rate 16 18 18 Blood Pressure 133/88 98/64 98/64 Pulse Oximetry 96 04/12/21 06:45 04/12/21 07:55 04/12/21 08:00 Temperature 97.6 F 98.1 F Pulse Rate 62 78 69 Respiratory Rate 16 16 16 Blood Pressure 108/76 129/76 112/46 L Pulse Oximetry 95 95 97 04/12/21 08:05 04/12/21 08:10 04/12/21 08:25 Temperature 98.0 F Pulse Rate 68 70 78 Respiratory Rate 21 H 18 16 Blood Pressure 117/74 117/74 130/87 Pulse Oximetry 96 97 96 04/12/21 08:49 Temperature 97.4 F Pulse Rate 73 Respiratory Rate Blood Pressure 150/78 H Pulse Oximetry 97 BMI result Body Mass Index 27.6 Labs Results: 04/03/21 14:24 04/11/21 08:26 Labs: Laboratory Results - last 48 hr 04/10/21 04/11/21 04/11/21 17:22 05:47 08:26 Sodium Potassium Chloride Carbon Dioxide Anion Gap BUN Creatinine 1.06 Estim Creat Clear Calc 86.4 Estimated GFR > 60 POC Glucose 155 H 123 H Random Glucose Calcium 04/11/21 04/11/21 04/12/21 08:26 16:59 05:39 Sodium 140 Potassium 4.3 Chloride 106 Carbon Dioxide 27 Anion Gap 11 L BUN 18 H Creatinine 1.02 Estim Creat Clear Calc 89.8 Estimated GFR > 60 POC Glucose 160 H 140 H Random Glucose 147 H Calcium 9.4 Medications Medications Current Medications Acetaminophen (Acetaminophen 325 Mg Tablet) 650 mg PO Q6H PRN PRN Reason: Headache/Pain Mild Scale (1-3) Last Admin: 04/12/21 08:14 Dose: 650 mg Documented by: Al Hydroxide/Mg Hydroxide (Magnesium Hydrox/Alum Hydrox 30 Ml Oral.Susp) 30 ml PO Q6H PRN PRN Reason: Heartburn/Nausea Aripiprazole (Aripiprazole 10 Mg Tablet) 10 mg PO DAILY [facility] Last Admin: 04/12/21 09:09 Dose: 10 mg Documented by: Clonidine HCl (Clonidine Hcl 0.1 Mg Tablet) 0.1 mg PO BEDTIME [facility]; Protocol Last Admin: 04/11/21 20:58 Dose: 0.1 mg Documented by: Hydroxyzine HCl (Hydroxyzine Hcl 25 Mg Tablet) 25 mg PO QID PRN PRN Reason: Anxiety Last Admin: 04/06/21 18:23 Dose: 25 mg Documented by: Levothyroxine Sodium (Levothyroxine Sodium 75 Mcg Tablet) 150 mcg PO DAILY@0600 [facility] Last Admin: 04/12/21 09:09 Dose: 150 mcg Documented by: Lisinopril (Lisinopril 5 Mg Tablet) 5 mg PO DAILY [facility]; Protocol Last Admin: 04/12/21 09:09 Dose: 5 mg Documented by: Magnesium Hydroxide (Milk Of Magnesia 30 Ml Oral.Susp) 30 ml PO DAILY PRN PRN Reason: Constipation Metformin HCl (Metformin Hcl Er 500 Mg Tab.Er.24h) 500 mg PO DAILY@1700 [facility] Last Admin: 04/11/21 16:55 Dose: 500 mg Documented by: Nicotine (Nicotine 21 Mg Patch.Td24) 21 mg TRANSDERMA DAILY PRN PRN Reason: smoking cessation Last Admin: 04/07/21 09:36 Dose: 21 mg Documented by: Nicotine Polacrilex (Nicotine Polacrilex 2 Mg Gum) 4 mg BUCCAL Q2H PRN PRN Reason: Nicotine Cravings Last Admin: 04/08/21 14:30 Dose: 4 mg Documented by: Omeprazole (Omeprazole 20 Mg Capsule.Dr) 20 mg PO BID [facility] Last Admin: 04/12/21 09:08 Dose: 20 mg Documented by: Prazosin HCl (Prazosin Hcl 1 Mg Capsule) 2 mg PO BEDTIME [facility]; Protocol Last Admin: 04/11/21 20:58 Dose: 2 mg Documented by: Prazosin HCl (Prazosin Hcl 5 Mg Capsule) 5 mg PO BEDTIME [facility]; Protocol Last Admin: 04/11/21 20:58 Dose: 5 mg Documented by: Quetiapine Fumarate (Quetiapine Fumarate 25 Mg Tablet) 25 mg PO Q4H PRN PRN Reason: anxiety/restlessness Quetiapine Fumarate (Quetiapine Fumarate 50 Mg Tablet) 50 mg PO BEDTIME [facility] Last Admin: 04/11/21 20:58 Dose: 50 mg Documented by: Tamsulosin HCl (Tamsulosin Hcl 0.4 Mg Capsule) 0.8 mg PO BEDTIME [facility] Last Admin: 04/11/21 20:58 Dose: 0.8 mg Documented by: Trazodone HCl (Trazodone Hcl 50 Mg Tablet) 50 mg PO BEDTIME [facility] Last Admin: 04/11/21 20:58 Dose: 50 mg Documented by: Venlafaxine HCl (Venlafaxine Hcl Er 37.5 Mg Cap.Er.24h) 112.5 mg PO DAILY [facility] Last Admin: 04/12/21 09:09 Dose: 112.5 mg Documented by: Allergies Allergies Allergy/AdvReac Type Severity Reaction Status Date / Time NSAIDS (Non-Steroidal AdvReac Severe Shakiness Verified 04/04/21 11:52 Anti-Inflamma aspirin AdvReac Intermediate Shortness Verified 04/04/21 11:52 of Breath bupropion [From Wellbutrin] AdvReac Intermediate Agitated Verified 04/04/21 11:52 Assessment & Plan Assessment & Plan (1) Major depressive disorder, recurrent severe without psychotic features: Status: Acute Code(s): F33.2 - Major depressive disorder, recurrent severe without psychotic features Assessment and Plan: Continue ECT taper Effexor literature given regarding bipolar to question of mixed episodes consider lithium Lamictal consider tx bipolar 2 ? borderline narcissistic pathology consider starting lithium sooner evaluate ect consider ptsd LT referral at [phone] Continue ECT consider started lithium continue Seroquel taper Effexor (2) Hyperglycemia: Status: Acute Code(s): R73.9 - Hyperglycemia, unspecified Assessment and Plan: Continue metformin (3) Chronic post-traumatic stress disorder (PTSD): Status: Acute Code(s): F43.12 - Post-traumatic stress disorder, chronic Assessment and Plan: Continue prazosin grounding tech and techniques relaxation techniques Plan 04/08: no medication changes, pt tolerating ECT and denies adverse effects 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 Patient continues to tolerate ECT following 2nd treatment; still depressed, still intermittent SI however he reports his mood is little better than on admission. No requests. I spent minutes with the patient and/or on the patient floor today, greater than?50% of which was spent counseling/coordinating care. Reason for contiued inpatient stay Substantial Risk for: harm to self and rapid decompensation
[2021-04-12 16:53] LABS: Glucose, Whole Blood 132 mg/dL (60-115)
[2021-04-12] MEDS: metFORMIN HCl ER 500 MG TAB.ER.24H PO (17:10)
[2021-04-12] MEDS: cloNIDine HCL 0.1 MG TABLET PO (21:49)
[2021-04-12] MEDS: traZODone HCL 50 MG TABLET PO (21:50)
[2021-04-12] MEDS: Prazosin HCL 1 MG CAPSULE 2 MG PO (21:50)
[2021-04-12] MEDS: QUEtiapine Fumarate 50 MG TABLET PO (21:50)
[2021-04-12] MEDS: Prazosin HCL 5 MG CAPSULE PO (21:50)
[2021-04-12] MEDS: Tamsulosin HCL 0.4 MG CAPSULE 0.8 MG PO (21:50)
[2021-04-13 05:46] LABS: Glucose, Whole Blood 122 mg/dL (60-115)
[2021-04-13 06:00] VITALS: BP 103/70; PULSE 86; RESP 18; TEMP 36.4; O2SAT 94
[2021-04-13] MEDS: Levothyroxine Sodium 75 MCG TABLET 150 MCG PO (06:07)
[2021-04-13 07:00] VITALS: BMI 27.6
[2021-04-13] MEDS: lisinopriL 5 MG TABLET PO (08:33)
[2021-04-13] MEDS: Venlafaxine HCl ER 37.5 MG CAP.ER.24H 112.5 MG PO (08:33)
[2021-04-13] MEDS: Omeprazole 20 MG CAPSULE.DR PO ×2 (08:33→20:49)
[2021-04-13] MEDS: ARIPiprazole 10 MG TABLET PO (08:33)
[2021-04-13 16:32] LABS: Glucose, Whole Blood 164 mg/dL (60-115)
[2021-04-13] MEDS: metFORMIN HCl ER 500 MG TAB.ER.24H PO (16:54)
[2021-04-13 20:35] VITALS: BP 138/82; PULSE 72
[2021-04-13] MEDS: Prazosin HCL 1 MG CAPSULE 2 MG PO (20:49)
[2021-04-13] MEDS: cloNIDine HCL 0.1 MG TABLET PO (20:49)
[2021-04-13] MEDS: traZODone HCL 50 MG TABLET PO (20:49)
[2021-04-13] MEDS: Prazosin HCL 5 MG CAPSULE PO (20:49)
[2021-04-13] MEDS: QUEtiapine Fumarate 50 MG TABLET PO (20:49)
[2021-04-13] MEDS: Tamsulosin HCL 0.4 MG CAPSULE 0.8 MG PO (20:49)
--- NOTE | 2021-04-13 22:37 | P.PNPSI_ITS ---
Subjective Subjective Date of Service: 04/13/21 Reason For Visit: Depression,SI Subjective Notes: Conditional Voluntary Guardianship: No Interim History: Patient is showing some response tolerating change to Seroquel Effexor taper Medication Compliance: Yes Mental Status Exam Mental Status Exam Patient Appearance: Appropriate Patient Orientation: Person, Place, Time and Situation Level of Consciousness: Awake Patient Behavior: Appropriate Mood Description: Anxious, Apprehensive and Expansive Affect Description: Labile, Apprehensive and Expansive Hallucinations: None Delusions: Not Present Thought Content: positive for Preoccupation Depressive Symptoms: Increased Anxiety, Increased Irritability and Feelings of Guilt Diagnostics Vital Signs (24Hr): Vital Signs - 24 hr 04/13/21 06:00 04/13/21 20:35 Temperature 97.6 F Pulse Rate 86 72 Respiratory Rate 18 Blood Pressure 103/70 138/82 Pulse Oximetry 94 BMI result Body Mass Index 27.6 Labs Results: 04/03/21 14:24 04/11/21 08:26 Labs: Laboratory Results - last 48 hr 04/12/21 04/12/21 04/13/21 05:39 16:46 05:41 POC Glucose 140 H 132 H 122 H 04/13/21 16:29 POC Glucose 164 H Medications Medications Current Medications Acetaminophen (Acetaminophen 325 Mg Tablet) 650 mg PO Q6H PRN PRN Reason: Headache/Pain Mild Scale (1-3) Last Admin: 04/12/21 08:14 Dose: 650 mg Documented by: Al Hydroxide/Mg Hydroxide (Magnesium Hydrox/Alum Hydrox 30 Ml Oral.Susp) 30 ml PO Q6H PRN PRN Reason: Heartburn/Nausea Aripiprazole (Aripiprazole 10 Mg Tablet) 10 mg PO DAILY [facility] Last Admin: 04/13/21 08:33 Dose: 10 mg Documented by: Clonidine HCl (Clonidine Hcl 0.1 Mg Tablet) 0.1 mg PO BEDTIME [facility]; Protocol Last Admin: 04/13/21 20:49 Dose: 0.1 mg Documented by: Hydroxyzine HCl (Hydroxyzine Hcl 25 Mg Tablet) 25 mg PO QID PRN PRN Reason: Anxiety Last Admin: 04/06/21 18:23 Dose: 25 mg Documented by: Levothyroxine Sodium (Levothyroxine Sodium 75 Mcg Tablet) 150 mcg PO DAILY@0600 [facility] Last Admin: 04/13/21 06:07 Dose: 150 mcg Documented by: Lisinopril (Lisinopril 5 Mg Tablet) 5 mg PO DAILY [facility]; Protocol Last Admin: 04/13/21 08:33 Dose: 5 mg Documented by: Magnesium Hydroxide (Milk Of Magnesia 30 Ml Oral.Susp) 30 ml PO DAILY PRN PRN Reason: Constipation Metformin HCl (Metformin Hcl Er 500 Mg Tab.Er.24h) 500 mg PO DAILY@1700 [facility] Last Admin: 04/13/21 16:54 Dose: 500 mg Documented by: Nicotine (Nicotine 21 Mg Patch.Td24) 21 mg TRANSDERMA DAILY PRN PRN Reason: smoking cessation Last Admin: 04/07/21 09:36 Dose: 21 mg Documented by: Nicotine Polacrilex (Nicotine Polacrilex 2 Mg Gum) 4 mg BUCCAL Q2H PRN PRN Reason: Nicotine Cravings Last Admin: 04/08/21 14:30 Dose: 4 mg Documented by: Omeprazole (Omeprazole 20 Mg Capsule.Dr) 20 mg PO BID [facility] Last Admin: 04/13/21 20:49 Dose: 20 mg Documented by: Prazosin HCl (Prazosin Hcl 1 Mg Capsule) 2 mg PO BEDTIME [facility]; Protocol Last Admin: 04/13/21 20:49 Dose: 2 mg Documented by: Prazosin HCl (Prazosin Hcl 5 Mg Capsule) 5 mg PO BEDTIME [facility]; Protocol Last Admin: 04/13/21 20:49 Dose: 5 mg Documented by: Quetiapine Fumarate (Quetiapine Fumarate 25 Mg Tablet) 25 mg PO Q4H PRN PRN Reason: anxiety/restlessness Quetiapine Fumarate (Quetiapine Fumarate 50 Mg Tablet) 50 mg PO BEDTIME [facility] Last Admin: 04/13/21 20:49 Dose: 50 mg Documented by: Tamsulosin HCl (Tamsulosin Hcl 0.4 Mg Capsule) 0.8 mg PO BEDTIME [facility] Last Admin: 04/13/21 20:49 Dose: 0.8 mg Documented by: Trazodone HCl (Trazodone Hcl 50 Mg Tablet) 50 mg PO BEDTIME [facility] Last Admin: 04/13/21 20:49 Dose: 50 mg Documented by: Venlafaxine HCl (Venlafaxine Hcl Er 37.5 Mg Cap.Er.24h) 112.5 mg PO DAILY [facility] Last Admin: 04/13/21 08:33 Dose: 112.5 mg Documented by: Allergies Allergies Allergy/AdvReac Type Severity Reaction Status Date / Time NSAIDS (Non-Steroidal AdvReac Severe Shakiness Verified 04/04/21 11:52 Anti-Inflamma aspirin AdvReac Intermediate Shortness Verified 04/04/21 11:52 of Breath bupropion [From Wellbutrin] AdvReac Intermediate Agitated Verified 04/04/21 11:52 Assessment & Plan Assessment & Plan (1) Major depressive disorder, recurrent severe without psychotic features: Status: Acute Code(s): F33.2 - Major depressive disorder, recurrent severe without psychotic features Assessment and Plan: Continue ECT taper Effexor literature given regarding bipolar to question of mixed episodes consider lithium Lamictal consider tx bipolar 2 ? borderline narcissistic pathology consider starting lithium sooner evaluate ect consider ptsd LT referral at [place] [facility] [phone] Continue ECT consider started lithium continue Seroquel taper Effexor gradually (2) Hyperglycemia: Status: Acute Code(s): R73.9 - Hyperglycemia, unspecified Assessment and Plan: Continue metformin (3) Chronic post-traumatic stress disorder (PTSD): Status: Acute Code(s): F43.12 - Post-traumatic stress disorder, chronic Assessment and Plan: Continue prazosin grounding tech and techniques relaxation techniques Plan 04/08: no medication changes, pt tolerating ECT and denies adverse effects 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 Patient continues to tolerate ECT following 2nd treatment; still depressed, still intermittent SI however he reports his mood is little better than on admission. No requests. I spent minutes with the patient and/or on the patient floor today, greater than?50% of which was spent counseling/coordinating care. Reason for contiued inpatient stay Substantial Risk for: med/psych decompensation
[2021-04-13] MEDS: QUEtiapine Fumarate 25 MG TABLET PO (23:54)
[2021-04-14] VITALS (10 sets, daily range): BP systolic 94–164; BP diastolic 64–89; PULSE 67–87; RESP 15–22; TEMP 36.2–37; O2SAT 79–96
[2021-04-14 06:30] LABS: Glucose, Whole Blood 133 mg/dL (60-115)
--- NOTE | 2021-04-14 06:49 | HO.ANESPROP2 ---
[facility] Active Problems Active Problems: All Active Problems (Updated 04/05/21 @ 13:04 by Milton Ayala MD) Major depressive disorder, recurrent severe without psychotic features (Acute) Chronic post-traumatic stress disorder (PTSD) (Acute) Hyperglycemia (Acute) Depression (Acute) Past Medical History Medical History (Updated 04/05/21 @ 13:04 by Milton Ayala MD) Acute post-traumatic stress disorder Anxiety Chronic post-traumatic stress disorder (PTSD) Depression Hypertension Hypothyroidism Major depressive disorder, recurrent severe without psychotic features PTSD (post-traumatic stress disorder) Family History Family history of problems with anesthesia: No Surgical History History of Problems with Anesthesia: No Social History Social History Household Members: Family Housing: House Do you presently have visiting nurse or other home services: No Patient Tobacco Use Status: Current everyday Tobacco user Tobacco use type: Cigarette Cigarette Packs Per Day: 1 Cigarettes Per Day: 20.0 Years Smoked: 10+ Smoked in Last 30 Days: Yes Patient Interested in Nicotine Replacement: Yes Patient Given Instructions on How to Stop Smoking: Yes Date Education Initiated: 04/04/21 Second Hand Smoke Exposure: Yes Use of substances other than those prescribed or required for medical reasons: Yes Substance Use Type: Marijuana Substance Use Frequency: Daily Last Used Substance: Just Prior to Admission Currently Displaying Signs/Symptoms of Drug Intoxication Withdrawal: No Any prior treatment program specific to substance use: No Have you been hit, kicked, punched, or otherwise hurt by someone within the past year? If so, by whom?: No Do you feel safe in your current relationship?: Yes Is there a partner from a previous relationship who is making you feel unsafe now?: No Are you made to feel afraid or neglected: No Are you DNR?: No Advance Directives: No Advance Directives Information Provided: Yes Healthcare Proxy: No Guardian: No Do you have thoughts of harming others: None Do you have a plan to hurt others: No Plan Recently lost weight without trying: No How much weight loss: Not applicable Eating poorly because of decreased appetite: No Nutrition screen score: 0 Nutrition Risks: No Nutritional Risk Poor oral hygiene: No service: Yes (Honorable discharge from Service as [place] [employer]) Sexual orientation: Did not discuss Meds Allergies Allergy/AdvReac Type Severity Reaction Status Date / Time NSAIDS (Non-Steroidal AdvReac Severe Shakiness Verified 04/04/21 11:52 Anti-Inflamma aspirin AdvReac Intermediate Shortness Verified 04/04/21 11:52 of Breath bupropion [From Wellbutrin] AdvReac Intermediate Agitated Verified 04/04/21 11:52 Active Medications: Current Medications Acetaminophen (Acetaminophen 325 Mg Tablet) 650 mg PO Q6H PRN PRN Reason: Headache/Pain Mild Scale (1-3) Last Admin: 04/12/21 08:14 Dose: 650 mg Documented by: Al Hydroxide/Mg Hydroxide (Magnesium Hydrox/Alum Hydrox 30 Ml Oral.Susp) 30 ml PO Q6H PRN PRN Reason: Heartburn/Nausea Aripiprazole (Aripiprazole 10 Mg Tablet) 10 mg PO DAILY [facility] Last Admin: 04/13/21 08:33 Dose: 10 mg Documented by: Clonidine HCl (Clonidine Hcl 0.1 Mg Tablet) 0.1 mg PO BEDTIME [facility]; Protocol Last Admin: 04/13/21 20:49 Dose: 0.1 mg Documented by: Hydroxyzine HCl (Hydroxyzine Hcl 25 Mg Tablet) 25 mg PO QID PRN PRN Reason: Anxiety Last Admin: 04/06/21 18:23 Dose: 25 mg Documented by: Lactated Ringer's (Lr) 1,000 mls @ 50 mls/hr IVCONT .Q20H [facility] Levothyroxine Sodium (Levothyroxine Sodium 75 Mcg Tablet) 150 mcg PO DAILY@0600 [facility] Last Admin: 04/13/21 06:07 Dose: 150 mcg Documented by: Lisinopril (Lisinopril 5 Mg Tablet) 5 mg PO DAILY [facility]; Protocol Last Admin: 04/13/21 08:33 Dose: 5 mg Documented by: Magnesium Hydroxide (Milk Of Magnesia 30 Ml Oral.Susp) 30 ml PO DAILY PRN PRN Reason: Constipation Metformin HCl (Metformin Hcl Er 500 Mg Tab.Er.24h) 500 mg PO DAILY@1700 [facility] Last Admin: 04/13/21 16:54 Dose: 500 mg Documented by: Nicotine (Nicotine 21 Mg Patch.Td24) 21 mg TRANSDERMA DAILY PRN PRN Reason: smoking cessation Last Admin: 04/07/21 09:36 Dose: 21 mg Documented by: Nicotine Polacrilex (Nicotine Polacrilex 2 Mg Gum) 4 mg BUCCAL Q2H PRN PRN Reason: Nicotine Cravings Last Admin: 04/08/21 14:30 Dose: 4 mg Documented by: Omeprazole (Omeprazole 20 Mg Capsule.) 20 mg PO BID [facility] Last Admin: 04/13/21 20:49 Dose: 20 mg Documented by: Prazosin HCl (Prazosin Hcl 1 Mg Capsule) 2 mg PO BEDTIME [facility]; Protocol Last Admin: 04/13/21 20:49 Dose: 2 mg Documented by: Prazosin HCl (Prazosin Hcl 5 Mg Capsule) 5 mg PO BEDTIME [facility]; Protocol Last Admin: 04/13/21 20:49 Dose: 5 mg Documented by: Quetiapine Fumarate (Quetiapine Fumarate 25 Mg Tablet) 25 mg PO Q4H PRN PRN Reason: anxiety/restlessness Last Admin: 04/13/21 23:54 Dose: 25 mg Documented by: Quetiapine Fumarate (Quetiapine Fumarate 50 Mg Tablet) 50 mg PO BEDTIME [facility] Last Admin: 04/13/21 20:49 Dose: 50 mg Documented by: Tamsulosin HCl (Tamsulosin Hcl 0.4 Mg Capsule) 0.8 mg PO BEDTIME [facility] Last Admin: 04/13/21 20:49 Dose: 0.8 mg Documented by: Trazodone HCl (Trazodone Hcl 50 Mg Tablet) 50 mg PO BEDTIME [facility] Last Admin: 04/13/21 20:49 Dose: 50 mg Documented by: Venlafaxine HCl (Venlafaxine Hcl Er 37.5 Mg Cap.Er.24h) 112.5 mg PO DAILY [facility] Last Admin: 04/13/21 08:33 Dose: 112.5 mg Documented by: Home Medications Medication Instructions Recorded Confirmed Last Taken Type aripiprazole 15 mg tablet 15 mg PO DAILY 04/03/21 04/03/21 04/03/21 History clonidine HCl 0.1 mg tablet 1 tab PO BEDTIME 04/03/21 04/03/21 04/02/21 History gabapentin 400 mg capsule 1 cap PO TID 04/03/21 04/03/21 04/03/21 History levothyroxine 150 mcg tablet 150 mcg PO DAILY@0600 04/03/21 04/03/21 04/03/21 History lisinopril 5 mg tablet 1 tab PO DAILY 04/03/21 04/03/21 04/03/21 History lorazepam 0.5 mg tablet 1 tab PO TID PRN 04/03/21 04/03/21 Unknown History omeprazole 20 mg capsule,delayed 1 cap PO BID 04/03/21 04/03/21 04/03/21 History release prazosin 1 mg capsule 2 mg PO BEDTIME 04/03/21 04/03/21 04/02/21 History prazosin 5 mg capsule 5 mg PO BEDTIME 04/03/21 04/03/21 04/02/21 History sildenafil 100 mg tablet 1 tab PO DAILY PRN 04/03/21 04/03/21 Unknown History tamsulosin 0.4 mg capsule 2 cap PO BEDTIME 04/03/21 04/03/21 04/02/21 History trazodone 100 mg tablet 150 mg PO BEDTIME 04/03/21 04/03/21 04/02/21 History venlafaxine 150 mg 150 mg PO DAILY 04/03/21 04/03/21 04/03/21 History capsule,extended release 24 hr venlafaxine 37.5 mg 37.5 mg PO DAILY 04/03/21 04/03/21 04/03/21 History tablet,extended release 24 hr Exam Exam Date and Time: April 14, 2021 0649 Height,Weight and Vital Signs: Height 5 ft 8 in Weight 82.4 kg Last Vital Signs Temp 97.5 F 04/14/21 06:44 Pulse 81 04/14/21 06:44 Resp 18 04/14/21 06:44 BP 106/68 04/14/21 06:44 Pulse Ox 96 04/14/21 06:44 Pertinent Lab Results Pertinent Lab Results: Laboratory Tests 04/03/21 04/03/21 04/03/21 14:24 14:24 14:25 WBC 7.4 RBC 5.46 Hgb 17.7 Hct 51.9 MCV 95.1 MCH 32.4 MCHC 34.1 RDW 13.0 Plt Count 181 MPV 9.9 Immature Gran % (Auto) 0.4 Neut % (Auto) 48.2 Lymph % (Auto) 45.0 H [place] % (Auto) 5.9 Eos % (Auto) 0.1 Baso % (Auto) 0.4 Lymph # (Auto) 3.3 [place] # (Auto) 0.4 Eos # (Auto) 0.0 Baso # (Auto) 0.0 Abs Immat Gran (auto) 0.03 Absolute Neuts (auto) 3.5 Absolute Nucleated RBC 0.000 Nucleated RBC % (auto) 0.0 Sodium 139 Potassium 4.1 Chloride 107 Carbon Dioxide 25 Anion Gap 11 L BUN 12 Creatinine 1.04 Estim Creat Clear Calc 88.6 Estimated GFR > 60 POC Glucose Random Glucose 194 H Estimat Average Glucose Hemoglobin A1c % Calcium 9.2 Total Bilirubin 0.3 Direct Bilirubin < 0.2 AST 27 ALT 63 H Alkaline Phosphatase 96 Total Protein 6.9 Albumin 4.2 Triglycerides Cholesterol LDL Cholesterol, Calc HDL Cholesterol TSH Salicylates < 5.0 L Urine Opiates Screen Urine Fentanyl Screen Acetaminophen < 1 Ur Barbiturates Screen Ur Phencyclidine Scrn Ur Amphetamines Screen U Benzodiazepines Scrn Urine Cocaine Screen U Marijuana (THC) Screen Ethyl Alcohol < 10 COVID-19 ([facility]) COVID-[employer] 04/03/21 04/03/21 04/04/21 14:25 14:27 10:50 WBC RBC Hgb Hct MCV MCH MCHC RDW Plt Count MPV Immature Gran % (Auto) Neut % (Auto) Lymph % (Auto) [place] % (Auto) Eos % (Auto) Baso % (Auto) Lymph # (Auto) [place] # (Auto) Eos # (Auto) Baso # (Auto) Abs Immat Gran (auto) Absolute Neuts (auto) Absolute Nucleated RBC Nucleated RBC % (auto) Sodium Potassium Chloride Carbon Dioxide Anion Gap BUN Creatinine Estim Creat Clear Calc Estimated GFR POC Glucose Random Glucose Estimat Average Glucose Hemoglobin A1c % Calcium Total Bilirubin Direct Bilirubin AST ALT Alkaline Phosphatase Total Protein Albumin Triglycerides Cholesterol LDL Cholesterol, Calc HDL Cholesterol TSH Salicylates Urine Opiates Screen Not Detected Urine Fentanyl Screen POSITIVE H Acetaminophen Ur Barbiturates Screen Not Detected Ur Phencyclidine Scrn Not Detected Ur Amphetamines Screen Not Detected U Benzodiazepines Scrn Not Detected Urine Cocaine Screen Not Detected U Marijuana (THC) Screen POSITIVE H Ethyl Alcohol COVID-19 ([facility]) Negative Negative COVID-[employer] See Note See Note 04/05/21 04/05/21 04/05/21 08:17 08:17 22:41 WBC RBC Hgb Hct MCV MCH MCHC RDW Plt Count MPV Immature Gran % (Auto) Neut % (Auto) Lymph % (Auto) [place] % (Auto) Eos % (Auto) Baso % (Auto) Lymph # (Auto) [place] # (Auto) Eos # (Auto) Baso # (Auto) Abs Immat Gran (auto) Absolute Neuts (auto) Absolute Nucleated RBC Nucleated RBC % (auto) Sodium Potassium Chloride Carbon Dioxide Anion Gap BUN Creatinine Estim Creat Clear Calc Estimated GFR POC Glucose 192 H Random Glucose Estimat Average Glucose 160 Hemoglobin A1c % 7.2 Calcium Total Bilirubin Direct Bilirubin AST ALT Alkaline Phosphatase Total Protein Albumin Triglycerides 211 Cholesterol 182 LDL Cholesterol, Calc 110 HDL Cholesterol 30 TSH Salicylates Urine Opiates Screen Urine Fentanyl Screen Acetaminophen Ur Barbiturates Screen Ur Phencyclidine Scrn Ur Amphetamines Screen U Benzodiazepines Scrn Urine Cocaine Screen U Marijuana (THC) Screen Ethyl Alcohol COVID-19 ([facility]) [employer] 04/06/21 04/06/21 04/07/21 05:39 19:30 05:25 WBC RBC Hgb Hct MCV MCH MCHC RDW Plt Count MPV Immature Gran % (Auto) Neut % (Auto) Lymph % (Auto) [place] % (Auto) Eos % (Auto) Baso % (Auto) Lymph # (Auto) [place] # (Auto) Eos # (Auto) Baso # (Auto) Abs Immat Gran (auto) Absolute Neuts (auto) Absolute Nucleated RBC Nucleated RBC % (auto) Sodium Potassium Chloride Carbon Dioxide Anion Gap BUN Creatinine Estim Creat Clear Calc Estimated GFR POC Glucose 145 H 190 H 144 H Random Glucose Estimat Average Glucose Hemoglobin A1c % Calcium Total Bilirubin Direct Bilirubin AST ALT Alkaline Phosphatase Total Protein Albumin Triglycerides Cholesterol LDL Cholesterol, Calc HDL Cholesterol TSH Salicylates Urine Opiates Screen Urine Fentanyl Screen Acetaminophen Ur Barbiturates Screen Ur Phencyclidine Scrn Ur Amphetamines Screen U Benzodiazepines Scrn Urine Cocaine Screen U Marijuana (THC) Screen Ethyl Alcohol COVID-19 ([facility]) COVID-[employer] 04/07/21 04/08/21 04/09/21 21:21 21:03 06:50 WBC RBC Hgb Hct MCV MCH MCHC RDW Plt Count MPV Immature Gran % (Auto) Neut % (Auto) Lymph % (Auto) [place] % (Auto) Eos % (Auto) Baso % (Auto) Lymph # (Auto) [place] # (Auto) Eos # (Auto) Baso # (Auto) Abs Immat Gran (auto) Absolute Neuts (auto) Absolute Nucleated RBC Nucleated RBC % (auto) Sodium Potassium Chloride Carbon Dioxide Anion Gap BUN Creatinine Estim Creat Clear Calc Estimated GFR POC Glucose 147 H 157 H 155 H Random Glucose Estimat Average Glucose Hemoglobin A1c % Calcium Total Bilirubin Direct Bilirubin AST ALT Alkaline Phosphatase Total Protein Albumin Triglycerides Cholesterol LDL Cholesterol, Calc HDL Cholesterol TSH Salicylates Urine Opiates Screen Urine Fentanyl Screen Acetaminophen Ur Barbiturates Screen Ur Phencyclidine Scrn Ur Amphetamines Screen U Benzodiazepines Scrn Urine Cocaine Screen U Marijuana (THC) Screen Ethyl Alcohol COVID-19 ([facility]) COVID-19 [employer] 04/09/21 04/09/21 04/10/21 07:59 16:39 06:23 WBC RBC Hgb Hct MCV MCH MCHC RDW Plt Count MPV Immature Gran % (Auto) Neut % (Auto) Lymph % (Auto) [place] % (Auto) Eos % (Auto) Baso % (Auto) Lymph # (Auto) [place] # (Auto) Eos # (Auto) Baso # (Auto) Abs Immat Gran (auto) Absolute Neuts (auto) Absolute Nucleated RBC Nucleated RBC % (auto) Sodium Potassium Chloride Carbon Dioxide Anion Gap BUN Creatinine Estim Creat Clear Calc Estimated GFR POC Glucose 183 H 139 H Random Glucose Estimat Average Glucose Hemoglobin A1c % Calcium Total Bilirubin Direct Bilirubin AST ALT Alkaline Phosphatase Total Protein Albumin Triglycerides Cholesterol LDL Cholesterol, Calc HDL Cholesterol TSH 0.88 Salicylates Urine Opiates Screen Urine Fentanyl Screen Acetaminophen Ur Barbiturates Screen Ur Phencyclidine Scrn Ur Amphetamines Screen U Benzodiazepines Scrn Urine Cocaine Screen U Marijuana (THC) Screen Ethyl Alcohol COVID-19 ([facility]) COVID-19 [employer] 04/10/21 04/11/21 04/11/21 17:22 05:47 08:26 WBC RBC Hgb Hct MCV MCH MCHC RDW Plt Count MPV Immature Gran % (Auto) Neut % (Auto) Lymph % (Auto) [place] % (Auto) Eos % (Auto) Baso % (Auto) Lymph # (Auto) [place] # (Auto) Eos # (Auto) Baso # (Auto) Abs Immat Gran (auto) Absolute Neuts (auto) Absolute Nucleated RBC Nucleated RBC % (auto) Sodium Potassium Chloride Carbon Dioxide Anion Gap BUN Creatinine 1.06 Estim Creat Clear Calc 86.4 Estimated GFR > 60 POC Glucose 155 H 123 H Random Glucose Estimat Average Glucose Hemoglobin A1c % Calcium Total Bilirubin Direct Bilirubin AST ALT Alkaline Phosphatase Total Protein Albumin Triglycerides Cholesterol LDL Cholesterol, Calc HDL Cholesterol TSH Salicylates Urine Opiates Screen Urine Fentanyl Screen Acetaminophen Ur Barbiturates Screen Ur Phencyclidine Scrn Ur Amphetamines Screen U Benzodiazepines Scrn Urine Cocaine Screen U Marijuana (THC) Screen Ethyl Alcohol COVID-19 ([facility]) COVID-19 [employer] 04/11/21 04/11/21 04/12/21 08:26 16:59 05:39 WBC RBC Hgb Hct MCV MCH MCHC RDW Plt Count MPV Immature Gran % (Auto) Neut % (Auto) Lymph % (Auto) [place] % (Auto) Eos % (Auto) Baso % (Auto) Lymph # (Auto) [place] # (Auto) Eos # (Auto) Baso # (Auto) Abs Immat Gran (auto) Absolute Neuts (auto) Absolute Nucleated RBC Nucleated RBC % (auto) Sodium 140 Potassium 4.3 Chloride 106 Carbon Dioxide 27 Anion Gap 11 L BUN 18 H Creatinine 1.02 Estim Creat Clear Calc 89.8 Estimated GFR > 60 POC Glucose 160 H 140 H Random Glucose 147 H Estimat Average Glucose Hemoglobin A1c % Calcium 9.4 Total Bilirubin Direct Bilirubin AST ALT Alkaline Phosphatase Total Protein Albumin Triglycerides Cholesterol LDL Cholesterol, Calc HDL Cholesterol TSH Salicylates Urine Opiates Screen Urine Fentanyl Screen Acetaminophen Ur Barbiturates Screen Ur Phencyclidine Scrn Ur Amphetamines Screen U Benzodiazepines Scrn Urine Cocaine Screen U Marijuana (THC) Screen Ethyl Alcohol COVID-19 ([facility]) COVID-19 [employer] 04/12/21 04/13/21 04/13/21 16:46 05:41 16:29 WBC RBC Hgb Hct MCV MCH MCHC RDW Plt Count MPV Immature Gran % (Auto) Neut % (Auto) Lymph % (Auto) [place] % (Auto) Eos % (Auto) Baso % (Auto) Lymph # (Auto) [place] # (Auto) Eos # (Auto) Baso # (Auto) Abs Immat Gran (auto) Absolute Neuts (auto) Absolute Nucleated RBC Nucleated RBC % (auto) Sodium Potassium Chloride Carbon Dioxide Anion Gap BUN Creatinine Estim Creat Clear Calc Estimated GFR POC Glucose 132 H 122 H 164 H Random Glucose Estimat Average Glucose Hemoglobin A1c % Calcium Total Bilirubin Direct Bilirubin AST ALT Alkaline Phosphatase Total Protein Albumin Triglycerides Cholesterol LDL Cholesterol, Calc HDL Cholesterol TSH Salicylates Urine Opiates Screen Urine Fentanyl Screen Acetaminophen Ur Barbiturates Screen Ur Phencyclidine Scrn Ur Amphetamines Screen U Benzodiazepines Scrn Urine Cocaine Screen U Marijuana (THC) Screen Ethyl Alcohol COVID-19 ([facility]) COVID-19 Clin Com 04/14/21 06:06 WBC RBC Hgb Hct MCV MCH MCHC RDW Plt Count MPV Immature Gran % (Auto) Neut % (Auto) Lymph % (Auto) [place] % (Auto) Eos % (Auto) Baso % (Auto) Lymph # (Auto) [place] # (Auto) Eos # (Auto) Baso # (Auto) Abs Immat Gran (auto) Absolute Neuts (auto) Absolute Nucleated RBC Nucleated RBC % (auto) Sodium Potassium Chloride Carbon Dioxide Anion Gap BUN Creatinine Estim Creat Clear Calc Estimated GFR POC Glucose 133 H Random Glucose Estimat Average Glucose Hemoglobin A1c % Calcium Total Bilirubin Direct Bilirubin AST ALT Alkaline Phosphatase Total Protein Albumin Triglycerides Cholesterol LDL Cholesterol, Calc HDL Cholesterol TSH Salicylates Urine Opiates Screen Urine Fentanyl Screen Acetaminophen Ur Barbiturates Screen Ur Phencyclidine Scrn Ur Amphetamines Screen U Benzodiazepines Scrn Urine Cocaine Screen U Marijuana (THC) Screen Ethyl Alcohol COVID-19 ([facility]) COVID-19 Clin Com Airway Mallampati Class: II TM Dist: >3cm Neck ROM: Full Denture: Upper and Lower Heart: rrr Lungs: cta Assessment and Plan Assessment Anesthesia Assessment: Anesthesia Plan Discussed and Chart Reviewed Final Anesthetic Review Family History of Problems with Anesthesia: No History of Problems with Anesthesia: No NPO: Yes ASA Class: III Final Preanesthetic Review: No Changes in Pt Med Stat, Meds/Allgs Chart Reviewed and Consent Obtained/Reviewed Patient Risk: Intermediate Procedure Risk: Intermediate Anesthetic Plan Anesthetic Plan: GA Disposition: Standard PACU
--- NOTE | 2021-04-14 07:08 | MHC.SHP ---
Pre-Procedural Eval Section A Date of Service: 04/14/21 The patient is an INPATIENT: Yes Changes since office visit: Yes Changes in Medication and Yes Patient answered all questions; No Cold of Flu in the past 2 weeks and No New Medical Problems The History & Physical has been completed within 30 days and I have reviewed it.: Yes Section B Chief Complaint: Depression,SI Allergies: Allergies Allergy/AdvReac Type Severity Reaction Status Date / Time NSAIDS (Non-Steroidal AdvReac Severe Shakiness Verified 04/04/21 11:52 Anti-Inflamma aspirin AdvReac Intermediate Shortness Verified 04/04/21 11:52 of Breath bupropion [From Wellbutrin] AdvReac Intermediate Agitated Verified 04/04/21 11:52 Plan I have reviewed the history and physical and performed a pertinent physical examination on my patient. No changes have occurred unless specified.
--- NOTE | 2021-04-14 07:45 | HO.ECTPROC ---
ECT Procedure Note Diagnosis/Treatment Date of Service: 04/14/21 Diagnosis: Bipolar disorder Previous ECT Date: 04/12/21 Current Treatment Number: 4 Treatment: Series Interval Clinical Notes: pt has been doing better despite marital concerns agreeable to start lithium ECT Settings Device: THYMATRON DGx Electrode Placement: Right Unilateral Program/Pulse Width: 0.50 Energy Percent: 100 Seizure Duration By EEG (in seconds): 72 Medications Administration General Anesthetic: Etomidate Muscle Relaxant: Succinylcholine Ancillary Medications Analgesics: Torodol - Pre ECT Anti-emetics: Zofran - Pre ECT Miscillaneous Medications: Propofol and Flumazenil (had klonapin day before ) Airway Management Airway Management: Bag Mask Ventilation Treatment Recommendations Energy Percent: 100 Notes: some desaturation consider LMA see anesthesia note Pt Tolerated Procedure w/o Issue: No
[2021-04-14] MEDS: Acetaminophen 325 MG TABLET 650 MG PO (08:17)
--- NOTE | 2021-04-14 08:20 | P.PNPSI_ITS ---
Subjective Subjective Date of Service: 04/14/21 Reason For Visit: Depression,SI Subjective Notes: Conditional Voluntary Healthcare Proxy: No Guardianship: No Interim History: see ect note pt future oriented no c/o side effects Medication Compliance: Yes Side effects from medications: No Review of Systems Acute medical concerns: No Mental Status Exam Mental Status Exam Patient Appearance: Well Grooomed Patient Orientation: Person, Place, Time and Situation Level of Consciousness: Appropriate Patient Behavior: Appropriate Mood Description: Apprehensive Affect Description: Depressed, Labile and Apprehensive Patient Cognition Impaired: No Ability to Follow Directions: Good Delusions: Not Present Thought Process: Intact Depressive Symptoms: Increased Anxiety and Increased Irritability Judgement: Fair Diagnostics Vital Signs (24Hr): Vital Signs - 24 hr 04/13/21 20:35 04/14/21 06:26 04/14/21 06:44 Temperature 97.2 F 97.5 F Pulse Rate 72 68 81 Respiratory Rate 18 18 Blood Pressure 138/82 112/76 106/68 Pulse Oximetry 94 96 04/14/21 07:49 04/14/21 07:54 04/14/21 07:59 Temperature 97.2 F Pulse Rate 67 87 77 Respiratory Rate 15 22 H 22 H Blood Pressure 164/79 H 106/86 102/64 Pulse Oximetry 95 94 94 04/14/21 08:04 04/14/21 08:18 Temperature Pulse Rate 78 81 Respiratory Rate 22 H 20 Blood Pressure 94/67 120/87 Pulse Oximetry 94 95 BMI result Body Mass Index 27.6 Labs Results: 04/03/21 14:24 04/11/21 08:26 Labs: Laboratory Results - last 48 hr 04/12/21 04/13/21 04/13/21 16:46 05:41 16:29 POC Glucose 132 H 122 H 164 H 04/14/21 06:06 POC Glucose 133 H Medications Medications Current Medications Acetaminophen (Acetaminophen 325 Mg Tablet) 650 mg PO Q6H PRN PRN Reason: Headache/Pain Mild Scale (1-3) Last Admin: 04/14/21 08:17 Dose: 650 mg Documented by: Al Hydroxide/Mg Hydroxide (Magnesium Hydrox/Alum Hydrox 30 Ml Oral.Susp) 30 ml PO Q6H PRN PRN Reason: Heartburn/Nausea Aripiprazole (Aripiprazole 10 Mg Tablet) 10 mg PO DAILY [facility] Last Admin: 04/13/21 08:33 Dose: 10 mg Documented by: Clonidine HCl (Clonidine Hcl 0.1 Mg Tablet) 0.1 mg PO BEDTIME [facility]; Protocol Last Admin: 04/13/21 20:49 Dose: 0.1 mg Documented by: Hydroxyzine HCl (Hydroxyzine Hcl 25 Mg Tablet) 25 mg PO QID PRN PRN Reason: Anxiety Last Admin: 04/06/21 18:23 Dose: 25 mg Documented by: Lactated Ringer's (Lr) 1,000 mls @ 50 mls/hr IVCONT .Q20H [facility] Levothyroxine Sodium (Levothyroxine Sodium 75 Mcg Tablet) 150 mcg PO DAILY@0600 [facility] Last Admin: 04/14/21 06:53 Dose: Not Given Documented by: Lisinopril (Lisinopril 5 Mg Tablet) 5 mg PO DAILY [facility]; Protocol Last Admin: 04/13/21 08:33 Dose: 5 mg Documented by: Magnesium Hydroxide (Milk Of Magnesia 30 Ml Oral.Susp) 30 ml PO DAILY PRN PRN Reason: Constipation Metformin HCl (Metformin Hcl Er 500 Mg Tab.Er.24h) 500 mg PO DAILY@1700 [facility] Last Admin: 04/13/21 16:54 Dose: 500 mg Documented by: Nicotine (Nicotine 21 Mg Patch.Td24) 21 mg TRANSDERMA DAILY PRN PRN Reason: smoking cessation Last Admin: 04/07/21 09:36 Dose: 21 mg Documented by: Nicotine Polacrilex (Nicotine Polacrilex 2 Mg Gum) 4 mg BUCCAL Q2H PRN PRN Reason: Nicotine Cravings Last Admin: 04/08/21 14:30 Dose: 4 mg Documented by: Omeprazole (Omeprazole 20 Mg Capsule.) 20 mg PO BID [facility] Last Admin: 04/13/21 20:49 Dose: 20 mg Documented by: Prazosin HCl (Prazosin Hcl 1 Mg Capsule) 2 mg PO BEDTIME [facility]; Protocol Last Admin: 04/13/21 20:49 Dose: 2 mg Documented by: Prazosin HCl (Prazosin Hcl 5 Mg Capsule) 5 mg PO BEDTIME [facility]; Protocol Last Admin: 04/13/21 20:49 Dose: 5 mg Documented by: Quetiapine Fumarate (Quetiapine Fumarate 25 Mg Tablet) 25 mg PO Q4H PRN PRN Reason: anxiety/restlessness Last Admin: 04/13/21 23:54 Dose: 25 mg Documented by: Quetiapine Fumarate (Quetiapine Fumarate 50 Mg Tablet) 50 mg PO BEDTIME [facility] Last Admin: 04/13/21 20:49 Dose: 50 mg Documented by: Tamsulosin HCl (Tamsulosin Hcl 0.4 Mg Capsule) 0.8 mg PO BEDTIME [facility] Last Admin: 04/13/21 20:49 Dose: 0.8 mg Documented by: Trazodone HCl (Trazodone Hcl 50 Mg Tablet) 50 mg PO BEDTIME [facility] Last Admin: 04/13/21 20:49 Dose: 50 mg Documented by: Venlafaxine HCl (Venlafaxine Hcl Er 37.5 Mg Cap.Er.24h) 112.5 mg PO DAILY [facility] Last Admin: 04/13/21 08:33 Dose: 112.5 mg Documented by: Allergies Allergies Allergy/AdvReac Type Severity Reaction Status Date / Time NSAIDS (Non-Steroidal AdvReac Severe Shakiness Verified 04/04/21 11:52 Anti-Inflamma aspirin AdvReac Intermediate Shortness Verified 04/04/21 11:52 of Breath bupropion [From Wellbutrin] AdvReac Intermediate Agitated Verified 04/04/21 11:52 Assessment & Plan Assessment & Plan (1) Major depressive disorder, recurrent severe without psychotic features: Status: Acute Code(s): F33.2 - Major depressive disorder, recurrent severe without psychotic features Assessment and Plan: Continue ECT taper Effexor literature given regarding bipolar to question of mixed episodes consider lithium Lamictal consider tx bipolar 2 ? borderline narcissistic pathology consider starting lithium sooner evaluate ect consider [place] LT referral at [phone] Continue ECT consider started lithium continue Seroquel taper Effexor gradually 04/14/21 cont ect then transition to lithium (2) Hyperglycemia: Status: Acute Code(s): R73.9 - Hyperglycemia, unspecified Assessment and Plan: Continue metformin (3) Chronic post-traumatic stress disorder (PTSD): Status: Acute Code(s): F43.12 - Post-traumatic stress disorder, chronic Assessment and Plan: Continue prazosin grounding tech and techniques relaxation techniques Plan 04/08: no medication changes, pt tolerating ECT and denies adverse effects 04/10 continuity writer covering. Patient continues to tolerate ECT following 2nd treatment; still depressed, still intermittent SI however he reports his mood is little better than on admission. No requests. I spent minutes with the patient and/or on the patient floor today, greater than?50% of which was spent counseling/coordinating care. Reason for contiued inpatient stay Substantial Risk for: harm to self
[2021-04-14] MEDS: Levothyroxine Sodium 75 MCG TABLET 150 MCG PO (08:57)
[2021-04-14] MEDS: Venlafaxine HCl ER 37.5 MG CAP.ER.24H 112.5 MG PO (08:57)
[2021-04-14] MEDS: ARIPiprazole 10 MG TABLET PO (08:57)
[2021-04-14] MEDS: Omeprazole 20 MG CAPSULE.DR PO ×2 (08:57→21:03)
[2021-04-14] MEDS: lisinopriL 5 MG TABLET PO (08:57)
[2021-04-14] MEDS: metFORMIN HCl ER 500 MG TAB.ER.24H PO (16:45)
[2021-04-14 16:52] LABS: Glucose, Whole Blood 186 mg/dL (60-115)
[2021-04-14] MEDS: Tamsulosin HCL 0.4 MG CAPSULE 0.8 MG PO (21:03)
[2021-04-14] MEDS: traZODone HCL 50 MG TABLET PO (21:03)
[2021-04-14] MEDS: Prazosin HCL 1 MG CAPSULE 2 MG PO (21:03)
[2021-04-14] MEDS: Prazosin HCL 5 MG CAPSULE PO (21:03)
[2021-04-14] MEDS: cloNIDine HCL 0.1 MG TABLET PO (21:03)
[2021-04-14] MEDS: QUEtiapine Fumarate 50 MG TABLET PO (21:03)
[2021-04-15] MEDS: Levothyroxine Sodium 75 MCG TABLET 150 MCG PO (05:09)
[2021-04-15 05:18] LABS: Glucose, Whole Blood 118 mg/dL (60-115)
[2021-04-15] MEDS: Omeprazole 20 MG CAPSULE.DR PO ×2 (08:48→21:14)
[2021-04-15] MEDS: lisinopriL 5 MG TABLET PO (08:48)
[2021-04-15] MEDS: ARIPiprazole 10 MG TABLET PO (08:48)
[2021-04-15] MEDS: Venlafaxine HCl ER 37.5 MG CAP.ER.24H 112.5 MG PO (08:48)
[2021-04-15 08:57] VITALS: BP 125/75; PULSE 86; RESP 16; TEMP 36.3; O2SAT 98
--- NOTE | 2021-04-15 11:51 | HO.PSYCHPN ---
Subjective Subjective Date of Service: 04/15/21 Reason For Visit: Depression,SI Interim History: Constantine reports he is feeling improved with ECT results, depressive sx are subsiding. Denies medication SE or questions. Team reports plan is to complete ECT and possibly begin [place] when ECT is finished. Visable in milieu, interactive with peers, supportive of room-mate. Constantine reports no sleep or appetite symptoms of concern. Medication Compliance: Yes Side effects from medications: No Attending Groups: Yes Review of Systems Acute medical concerns: No Medical Review of Systems: unchanged Review of Systems Psychiatric: Reports no additional psychiatric complaints and Reports as per [facility] Mental Status Exam Mental Status Exam Patient Appearance: Appropriate Patient Orientation: Person, Place, Time and Situation Level of Consciousness: Alert Patient Behavior: Appropriate, Talkative, Cooperative and Good Eye Contact Mood Description: Flat Affect Description: Flat Patient Cognition Impaired: No Ability to Follow Directions: Good Speech Pattern: Spontaneous Speech Memory Description: Episodic Impaired Hallucinations: None Delusions: Not Present Thought Process: Intact Thought Content: positive for Intact Depressive Symptoms: Thoughts of /Suicide (denies) Judgement: Fair Diagnostics Vital Signs (24Hr): Vital Signs - 24 hr 04/14/21 21:02 04/15/21 08:57 Temperature 98.6 F 97.4 F Pulse Rate 79 86 Respiratory Rate 18 16 Blood Pressure 144/85 H 125/75 Pulse Oximetry 79 L 98 BMI result Body Mass Index 27.6 Labs Results: 04/03/21 14:24 04/11/21 08:26 Labs: Laboratory Results - last 48 hr 04/13/21 04/14/21 04/14/21 16:29 06:06 16:47 POC Glucose 164 H 133 H 186 H 04/15/21 05:14 POC Glucose 118 H Medications Medications Current Medications Acetaminophen (Acetaminophen 325 Mg Tablet) 650 mg PO Q6H PRN PRN Reason: Headache/Pain Mild Scale (1-3) Last Admin: 04/14/21 08:17 Dose: 650 mg Documented by: Al Hydroxide/Mg Hydroxide (Magnesium Hydrox/Alum Hydrox 30 Ml Oral.Susp) 30 ml PO Q6H PRN PRN Reason: Heartburn/Nausea Aripiprazole (Aripiprazole 10 Mg Tablet) 10 mg PO DAILY [facility] Last Admin: 04/15/21 08:48 Dose: 10 mg Documented by: Clonidine HCl (Clonidine Hcl 0.1 Mg Tablet) 0.1 mg PO BEDTIME [facility]; Protocol Last Admin: 04/14/21 21:03 Dose: 0.1 mg Documented by: Hydroxyzine HCl (Hydroxyzine Hcl 25 Mg Tablet) 25 mg PO QID PRN PRN Reason: Anxiety Last Admin: 04/06/21 18:23 Dose: 25 mg Documented by: Levothyroxine Sodium (Levothyroxine Sodium 75 Mcg Tablet) 150 mcg PO DAILY@0600 [facility] Last Admin: 04/15/21 05:09 Dose: 150 mcg Documented by: Lisinopril (Lisinopril 5 Mg Tablet) 5 mg PO DAILY [facility]; Protocol Last Admin: 04/15/21 08:48 Dose: 5 mg Documented by: Magnesium Hydroxide (Milk Of Magnesia 30 Ml Oral.Susp) 30 ml PO DAILY PRN PRN Reason: Constipation Metformin HCl (Metformin Hcl Er 500 Mg Tab.Er.24h) 500 mg PO DAILY@1700 [facility] Last Admin: 04/14/21 16:45 Dose: 500 mg Documented by: Nicotine (Nicotine 21 Mg Patch.Td24) 21 mg TRANSDERMA DAILY PRN PRN Reason: smoking cessation Last Admin: 04/07/21 09:36 Dose: 21 mg Documented by: Nicotine Polacrilex (Nicotine Polacrilex 2 Mg Gum) 4 mg BUCCAL Q2H PRN PRN Reason: Nicotine Cravings Last Admin: 04/08/21 14:30 Dose: 4 mg Documented by: Omeprazole (Omeprazole 20 Mg Capsule.Dr) 20 mg PO BID [facility] Last Admin: 04/15/21 08:48 Dose: 20 mg Documented by: Prazosin HCl (Prazosin Hcl 1 Mg Capsule) 2 mg PO BEDTIME [facility]; Protocol Last Admin: 04/14/21 21:03 Dose: 2 mg Documented by: Prazosin HCl (Prazosin Hcl 5 Mg Capsule) 5 mg PO BEDTIME [facility]; Protocol Last Admin: 04/14/21 21:03 Dose: 5 mg Documented by: Quetiapine Fumarate (Quetiapine Fumarate 25 Mg Tablet) 25 mg PO Q4H PRN PRN Reason: anxiety/restlessness Last Admin: 04/13/21 23:54 Dose: 25 mg Documented by: Quetiapine Fumarate (Quetiapine Fumarate 50 Mg Tablet) 50 mg PO BEDTIME [facility] Last Admin: 04/14/21 21:03 Dose: 50 mg Documented by: Tamsulosin HCl (Tamsulosin Hcl 0.4 Mg Capsule) 0.8 mg PO BEDTIME [facility] Last Admin: 04/14/21 21:03 Dose: 0.8 mg Documented by: Trazodone HCl (Trazodone Hcl 50 Mg Tablet) 50 mg PO BEDTIME [facility] Last Admin: 04/14/21 21:03 Dose: 50 mg Documented by: Venlafaxine HCl (Venlafaxine Hcl Er 37.5 Mg Cap.Er.24h) 112.5 mg PO DAILY [facility] Last Admin: 04/15/21 08:48 Dose: 112.5 mg Documented by: Allergies Allergies Allergy/AdvReac Type Severity Reaction Status Date / Time NSAIDS (Non-Steroidal AdvReac Severe Shakiness Verified 04/04/21 11:52 Anti-Inflamma aspirin AdvReac Intermediate Shortness Verified 04/04/21 11:52 of Breath bupropion [From Wellbutrin] AdvReac Intermediate Agitated Verified 04/04/21 11:52 Assessment & Plan Assessment & Plan (1) Major depressive disorder, recurrent severe without psychotic features: Status: Acute Code(s): F33.2 - Major depressive disorder, recurrent severe without psychotic features Assessment and Plan: Continue ECT taper Effexor literature given regarding bipolar to question of mixed episodes consider lithium Lamictal consider tx bipolar 2 ? borderline narcissistic pathology consider starting lithium sooner evaluate ect consider ptsd LT referral at [facility] [phone] Continue ECT consider started lithium continue Seroquel taper Effexor gradually 04/14/21 cont ect then transition to lithium 04/15/21 Weekend coverage- Continue plan of care (2) Hyperglycemia: Status: Acute Code(s): R73.9 - Hyperglycemia, unspecified Assessment and Plan: Continue metformin (3) Chronic post-traumatic stress disorder (PTSD): Status: Acute Code(s): F43.12 - Post-traumatic stress disorder, chronic Assessment and Plan: Continue prazosin grounding tech and techniques relaxation techniques Plan 04/08: no medication changes, pt tolerating ECT and denies adverse effects 04/10 automatic typewriter inspector covering. Patient continues to tolerate ECT following 2nd treatment; still depressed, still intermittent SI however he reports his mood is little better than on admission. No requests. I spent 15 minutes with the patient and/or on the patient floor today, greater than?50% of which was spent counseling/coordinating care. Patient educated on: medication risk/benefits and therapeutic strategies Informed Consent: understands and further education needed Reason for contiued inpatient stay Substantial Risk for: rapid decompensation
[2021-04-15] MEDS: metFORMIN HCl ER 500 MG TAB.ER.24H PO (16:51)
[2021-04-15 16:58] LABS: Glucose, Whole Blood 203 mg/dL (60-115)
[2021-04-15 18:00] VITALS: BP 132/87; PULSE 74; RESP 16; TEMP 36.4
[2021-04-15] MEDS: Prazosin HCL 5 MG CAPSULE PO (21:14)
[2021-04-15] MEDS: cloNIDine HCL 0.1 MG TABLET PO (21:14)
[2021-04-15] MEDS: Tamsulosin HCL 0.4 MG CAPSULE 0.8 MG PO (21:14)
[2021-04-15] MEDS: QUEtiapine Fumarate 50 MG TABLET PO (21:14)
[2021-04-15] MEDS: traZODone HCL 50 MG TABLET PO (21:14)
[2021-04-15] MEDS: Prazosin HCL 1 MG CAPSULE 2 MG PO (21:14)
[2021-04-16] MEDS: Levothyroxine Sodium 75 MCG TABLET 150 MCG PO (04:55)
[2021-04-16 04:57] LABS: Glucose, Whole Blood 118 mg/dL (60-115)
[2021-04-16 05:15] VITALS: BP 116/78; PULSE 68; RESP 16; TEMP 36.2; O2SAT 97
[2021-04-16] MEDS: ARIPiprazole 10 MG TABLET PO (08:48)
[2021-04-16] MEDS: Omeprazole 20 MG CAPSULE.DR PO ×2 (08:48→21:15)
[2021-04-16] MEDS: Venlafaxine HCl ER 37.5 MG CAP.ER.24H 112.5 MG PO (08:48)
[2021-04-16] MEDS: lisinopriL 5 MG TABLET PO (08:49)
--- NOTE | 2021-04-16 09:23 | P.PNPSI_ITS ---
Subjective Subjective Date of Service: 04/16/21 Reason For Visit: Depression,SI Interim History: I am pretty good. I think tomorrow I am starting [place] and going home. (Given [place] handout to review) Pt reports feeling well, no medication side effects, no symptoms of concern today. He is supportive of his room-mate and encouraging of him. Medication Compliance: Yes Side effects from medications: No Attending Groups: Yes Review of Systems Acute medical concerns: No Medical Review of Systems: unchanged Review of Systems Psychiatric: Reports no additional psychiatric complaints and Reports as per [facility] Mental Status Exam Mental Status Exam Patient Appearance: Appropriate Patient Orientation: Person, Place, Time and Situation Level of Consciousness: Alert Patient Behavior: Appropriate, Talkative, Cooperative and Good Eye Contact Mood Description: Flat Affect Description: Flat Patient Cognition Impaired: No Ability to Follow Directions: Good Speech Pattern: Spontaneous Speech Memory Description: Episodic Impaired Hallucinations: None Delusions: Not Present Thought Process: Intact Thought Content: positive for Intact Depressive Symptoms: Thoughts of /Suicide (denies) Judgement: Fair Diagnostics Vital Signs (24Hr): Vital Signs - 24 hr 04/15/21 18:00 04/16/21 05:15 Temperature 97.5 F 97.2 F Pulse Rate 74 68 Respiratory Rate 16 16 Blood Pressure 132/87 116/78 Pulse Oximetry 97 BMI result Body Mass Index 27.6 Labs Results: 04/03/21 14:24 04/11/21 08:26 Labs: Laboratory Results - last 48 hr 04/14/21 04/15/21 04/15/21 16:47 05:14 16:54 POC Glucose 186 H 118 H 203 H 04/16/21 04:53 POC Glucose 118 H Medications Medications Current Medications Acetaminophen (Acetaminophen 325 Mg Tablet) 650 mg PO Q6H PRN PRN Reason: Headache/Pain Mild Scale (1-3) Last Admin: 04/14/21 08:17 Dose: 650 mg Documented by: Al Hydroxide/Mg Hydroxide (Magnesium Hydrox/Alum Hydrox 30 Ml Oral.Susp) 30 ml PO Q6H PRN PRN Reason: Heartburn/Nausea Aripiprazole (Aripiprazole 10 Mg Tablet) 10 mg PO DAILY [facility] Last Admin: 04/16/21 08:48 Dose: 10 mg Documented by: Clonidine HCl (Clonidine Hcl 0.1 Mg Tablet) 0.1 mg PO BEDTIME [facility]; Protocol Last Admin: 04/15/21 21:14 Dose: 0.1 mg Documented by: Hydroxyzine HCl (Hydroxyzine Hcl 25 Mg Tablet) 25 mg PO QID PRN PRN Reason: Anxiety Last Admin: 04/06/21 18:23 Dose: 25 mg Documented by: Levothyroxine Sodium (Levothyroxine Sodium 75 Mcg Tablet) 150 mcg PO DAILY@0600 [facility]PL[facility] Last Admin: 04/16/21 04:55 Dose: 150 mcg Documented by: Lisinopril (Lisinopril 5 Mg Tablet) 5 mg PO DAILY [facility]; Protocol Last Admin: 04/16/21 08:49 Dose: 5 mg Documented by: Magnesium Hydroxide (Milk Of Magnesia 30 Ml Oral.Susp) 30 ml PO DAILY PRN PRN Reason: Constipation Metformin HCl (Metformin Hcl Er 500 Mg Tab.Er.24h) 500 mg PO DAILY@1700 [facility] Last Admin: 04/15/21 16:51 Dose: 500 mg Documented by: Nicotine (Nicotine 21 Mg Patch.Td24) 21 mg TRANSDERMA DAILY PRN PRN Reason: smoking cessation Last Admin: 04/07/21 09:36 Dose: 21 mg Documented by: Nicotine Polacrilex (Nicotine Polacrilex 2 Mg Gum) 4 mg BUCCAL Q2H PRN PRN Reason: Nicotine Cravings Last Admin: 04/08/21 14:30 Dose: 4 mg Documented by: Omeprazole (Omeprazole 20 Mg Capsule.Dr) 20 mg PO BID [facility] Last Admin: 04/16/21 08:48 Dose: 20 mg Documented by: Prazosin HCl (Prazosin Hcl 1 Mg Capsule) 2 mg PO BEDTIME [facility]; Protocol Last Admin: 04/15/21 21:14 Dose: 2 mg Documented by: Prazosin HCl (Prazosin Hcl 5 Mg Capsule) 5 mg PO BEDTIME [facility]; Protocol Last Admin: 04/15/21 21:14 Dose: 5 mg Documented by: Quetiapine Fumarate (Quetiapine Fumarate 25 Mg Tablet) 25 mg PO Q4H PRN PRN Reason: anxiety/restlessness Last Admin: 04/13/21 23:54 Dose: 25 mg Documented by: Quetiapine Fumarate (Quetiapine Fumarate 50 Mg Tablet) 50 mg PO BEDTIME [facility]PL[facility] Last Admin: 04/15/21 21:14 Dose: 50 mg Documented by: Tamsulosin HCl (Tamsulosin Hcl 0.4 Mg Capsule) 0.8 mg PO BEDTIME [facility] Last Admin: 04/15/21 21:14 Dose: 0.8 mg Documented by: Trazodone HCl (Trazodone Hcl 50 Mg Tablet) 50 mg PO BEDTIME [facility]PL[facility]ED [facility] Last Admin: 04/15/21 21:14 Dose: 50 mg Documented by: Venlafaxine HCl (Venlafaxine Hcl Er 37.5 Mg Cap.Er.24h) 112.5 mg PO DAILY [facility]PL[facility]ED [facility] Last Admin: 04/16/21 08:48 Dose: 112.5 mg Documented by: Allergies Allergies Allergy/AdvReac Type Severity Reaction Status Date / Time NSAIDS (Non-Steroidal AdvReac Severe Shakiness Verified 04/04/21 11:52 Anti-Inflamma aspirin AdvReac Intermediate Shortness Verified 04/04/21 11:52 of Breath bupropion [From Wellbutrin] AdvReac Intermediate Agitated Verified 04/04/21 11:52 Assessment & Plan Assessment & Plan (1) Major depressive disorder, recurrent severe without psychotic features: Status: Acute Code(s): F33.2 - Major depressive disorder, recurrent severe without psychotic features Assessment and Plan: Continue ECT taper Effexor literature given regarding bipolar to question of mixed episodes consider lithium Lamictal consider tx bipolar 2 ? borderline narcissistic pathology consider starting lithium sooner evaluate ect consider ptsd LT referral at [facility] 2 [phone] Continue ECT consider started lithium continue Seroquel taper Effexor gradually 04/14/21 cont ect then transition to lithium 04/15/21 Weekend coverage- Continue plan of care 04/16/21 Weekend coverage-Continue plan of care-[place] handouts provided for pt review. (2) Hyperglycemia: Status: Acute Code(s): R73.9 - Hyperglycemia, unspecified Assessment and Plan: Continue metformin (3) Chronic post-traumatic stress disorder (PTSD): Status: Acute Code(s): F43.12 - Post-traumatic stress disorder, chronic Assessment and Plan: Continue prazosin grounding tech and techniques relaxation techniques Plan 04/08: no medication changes, pt tolerating ECT and denies adverse effects 04/10 health underwriter covering. Patient continues to tolerate ECT following 2nd treatment; still depressed, still intermittent SI however he reports his mood is little better than on admission. No requests. I spent 15 minutes with the patient and/or on the patient floor today, greater than?50% of which was spent counseling/coordinating care. Patient educated on: medication risk/benefits Informed Consent: understands and further education needed Reason for contiued inpatient stay Substantial Risk for: rapid decompensation
[2021-04-16] MEDS: metFORMIN HCl ER 500 MG TAB.ER.24H PO (16:54)
[2021-04-16] MEDS: Nicotine Polacrilex 2 MG GUM 4 MG BUCCAL (16:54)
[2021-04-16 18:50] LABS: Glucose, Whole Blood 239 mg/dL (60-115)
[2021-04-16 21:00] VITALS: BP 135/92; PULSE 79; TEMP 36.9; O2SAT 98
[2021-04-16] MEDS: cloNIDine HCL 0.1 MG TABLET PO (21:15)
[2021-04-16] MEDS: Tamsulosin HCL 0.4 MG CAPSULE 0.8 MG PO (21:15)
[2021-04-16] MEDS: Prazosin HCL 5 MG CAPSULE PO (21:16)
[2021-04-16] MEDS: traZODone HCL 50 MG TABLET PO (21:16)
[2021-04-16] MEDS: Prazosin HCL 1 MG CAPSULE 2 MG PO (21:16)
[2021-04-16] MEDS: QUEtiapine Fumarate 50 MG TABLET PO (21:16)
[2021-04-17] VITALS (10 sets, daily range): BP systolic 118–145; BP diastolic 70–101; PULSE 69–105; RESP 16–22; TEMP 36.5–36.7; O2SAT 96–98
[2021-04-17 06:03] LABS: Glucose, Whole Blood 108 mg/dL (60-115)
--- NOTE | 2021-04-17 06:51 | HO.ANESPROP2 ---
[facility] Active Problems Active Problems: All Active Problems (Updated 04/05/21 @ 13:04 by Milton Ayala MD) Major depressive disorder, recurrent severe without psychotic features (Acute) Chronic post-traumatic stress disorder (PTSD) (Acute) Hyperglycemia (Acute) Depression (Acute) Past Medical History Medical History (Updated 04/05/21 @ 13:04 by Milton Ayala MD) Acute post-traumatic stress disorder Anxiety Chronic post-traumatic stress disorder (PTSD) Depression Hypertension Hypothyroidism Major depressive disorder, recurrent severe without psychotic features PTSD (post-traumatic stress disorder) Family History Family history of problems with anesthesia: No Surgical History History of Problems with Anesthesia: No Social History Social History Household Members: Family Housing: House Do you presently have visiting nurse or other home services: No Patient Tobacco Use Status: Current everyday Tobacco user Tobacco use type: Cigarette Cigarette Packs Per Day: 1 Cigarettes Per Day: 20.0 Years Smoked: 10+ Smoked in Last 30 Days: Yes Patient Interested in Nicotine Replacement: Yes Patient Given Instructions on How to Stop Smoking: Yes Date Education Initiated: 04/04/21 Second Hand Smoke Exposure: Yes Use of substances other than those prescribed or required for medical reasons: Yes Substance Use Type: Marijuana Substance Use Frequency: Daily Last Used Substance: Just Prior to Admission Currently Displaying Signs/Symptoms of Drug Intoxication Withdrawal: No Any prior treatment program specific to substance use: No Have you been hit, kicked, punched, or otherwise hurt by someone within the past year? If so, by whom?: No Do you feel safe in your current relationship?: Yes Is there a partner from a previous relationship who is making you feel unsafe now?: No Are you made to feel afraid or neglected: No Are you DNR?: No Advance Directives: No Advance Directives Information Provided: Yes Healthcare Proxy: No Guardian: No Do you have thoughts of harming others: None Do you have a plan to hurt others: No Plan Recently lost weight without trying: No How much weight loss: Not applicable Eating poorly because of decreased appetite: No Nutrition screen score: 0 Nutrition Risks: No Nutritional Risk Poor oral hygiene: No service: Yes (Honorable discharge from Service as [place] [employer]) Sexual orientation: Did not discuss Meds Allergies Allergy/AdvReac Type Severity Reaction Status Date / Time NSAIDS (Non-Steroidal AdvReac Severe Shakiness Verified 04/04/21 11:52 Anti-Inflamma aspirin AdvReac Intermediate Shortness Verified 04/04/21 11:52 of Breath bupropion [From Wellbutrin] AdvReac Intermediate Agitated Verified 04/04/21 11:52 Active Medications: Current Medications Acetaminophen (Acetaminophen 325 Mg Tablet) 650 mg PO Q6H PRN PRN Reason: Headache/Pain Mild Scale (1-3) Last Admin: 04/14/21 08:17 Dose: 650 mg Documented by: Al Hydroxide/Mg Hydroxide (Magnesium Hydrox/Alum Hydrox 30 Ml Oral.Susp) 30 ml PO Q6H PRN PRN Reason: Heartburn/Nausea Aripiprazole (Aripiprazole 10 Mg Tablet) 10 mg PO DAILY [facility] Last Admin: 04/16/21 08:48 Dose: 10 mg Documented by: Clonidine HCl (Clonidine Hcl 0.1 Mg Tablet) 0.1 mg PO BEDTIME [facility]; Protocol Last Admin: 04/16/21 21:15 Dose: 0.1 mg Documented by: Hydroxyzine HCl (Hydroxyzine Hcl 25 Mg Tablet) 25 mg PO QID PRN PRN Reason: Anxiety Last Admin: 04/06/21 18:23 Dose: 25 mg Documented by: Lactated Ringer's (Lr) 1,000 mls @ 100 mls/hr IVCONT .Q10H [facility] Levothyroxine Sodium (Levothyroxine Sodium 75 Mcg Tablet) 150 mcg PO DAILY@0600 [facility] Last Admin: 04/16/21 04:55 Dose: 150 mcg Documented by: Lisinopril (Lisinopril 5 Mg Tablet) 5 mg PO DAILY [facility]; Protocol Last Admin: 04/16/21 08:49 Dose: 5 mg Documented by: Magnesium Hydroxide (Milk Of Magnesia 30 Ml Oral.Susp) 30 ml PO DAILY PRN PRN Reason: Constipation Metformin HCl (Metformin Hcl Er 500 Mg Tab.Er.24h) 500 mg PO DAILY@1700 [facility] Last Admin: 04/16/21 16:54 Dose: 500 mg Documented by: Nicotine (Nicotine 21 Mg Patch.Td24) 21 mg TRANSDERMA DAILY PRN PRN Reason: smoking cessation Last Admin: 04/07/21 09:36 Dose: 21 mg Documented by: Nicotine Polacrilex (Nicotine Polacrilex 2 Mg Gum) 4 mg BUCCAL Q2H PRN PRN Reason: Nicotine Cravings Last Admin: 04/16/21 16:54 Dose: 4 mg Documented by: Omeprazole (Omeprazole 20 Mg Capsule.) 20 mg PO BID [facility] Last Admin: 04/16/21 21:15 Dose: 20 mg Documented by: Prazosin HCl (Prazosin Hcl 1 Mg Capsule) 2 mg PO BEDTIME [facility]; Protocol Last Admin: 04/16/21 21:16 Dose: 2 mg Documented by: Prazosin HCl (Prazosin Hcl 5 Mg Capsule) 5 mg PO BEDTIME [facility]; Protocol Last Admin: 04/16/21 21:16 Dose: 5 mg Documented by: Quetiapine Fumarate (Quetiapine Fumarate 25 Mg Tablet) 25 mg PO Q4H PRN PRN Reason: anxiety/restlessness Last Admin: 04/13/21 23:54 Dose: 25 mg Documented by: Quetiapine Fumarate (Quetiapine Fumarate 50 Mg Tablet) 50 mg PO BEDTIME [facility] Last Admin: 04/16/21 21:16 Dose: 50 mg Documented by: Tamsulosin HCl (Tamsulosin Hcl 0.4 Mg Capsule) 0.8 mg PO BEDTIME [facility] Last Admin: 04/16/21 21:15 Dose: 0.8 mg Documented by: Trazodone HCl (Trazodone Hcl 50 Mg Tablet) 50 mg PO BEDTIME [facility] Last Admin: 04/16/21 21:16 Dose: 50 mg Documented by: Venlafaxine HCl (Venlafaxine Hcl Er 37.5 Mg Cap.Er.24h) 112.5 mg PO DAILY [facility] Last Admin: 04/16/21 08:48 Dose: 112.5 mg Documented by: Home Medications Medication Instructions Recorded Confirmed Last Taken Type aripiprazole 15 mg tablet 15 mg PO DAILY 04/03/21 04/03/21 04/03/21 History clonidine HCl 0.1 mg tablet 1 tab PO BEDTIME 04/03/21 04/03/21 04/02/21 History gabapentin 400 mg capsule 1 cap PO TID 04/03/21 04/03/21 04/03/21 History levothyroxine 150 mcg tablet 150 mcg PO DAILY@0600 04/03/21 04/03/21 04/03/21 History lisinopril 5 mg tablet 1 tab PO DAILY 04/03/21 04/03/21 04/03/21 History lorazepam 0.5 mg tablet 1 tab PO TID PRN 04/03/21 04/03/21 Unknown History omeprazole 20 mg capsule,delayed 1 cap PO BID 04/03/21 04/03/21 04/03/21 History release prazosin 1 mg capsule 2 mg PO BEDTIME 04/03/21 04/03/21 04/02/21 History prazosin 5 mg capsule 5 mg PO BEDTIME 04/03/21 04/03/21 04/02/21 History sildenafil 100 mg tablet 1 tab PO DAILY PRN 04/03/21 04/03/21 Unknown History tamsulosin 0.4 mg capsule 2 cap PO BEDTIME 04/03/21 04/03/21 04/02/21 History trazodone 100 mg tablet 150 mg PO BEDTIME 04/03/21 04/03/21 04/02/21 History venlafaxine 150 mg 150 mg PO DAILY 04/03/21 04/03/21 04/03/21 History capsule,extended release 24 hr venlafaxine 37.5 mg 37.5 mg PO DAILY 04/03/21 04/03/21 04/03/21 History tablet,extended release 24 hr Exam Exam Date and Time: April 17, 2021 0651 Height,Weight and Vital Signs: Height 5 ft 8 in Weight 82.4 kg Last Vital Signs Temp 97.7 F 04/17/21 06:34 Pulse 73 04/17/21 06:34 Resp 18 04/17/21 06:34 BP 125/79 04/17/21 06:34 Pulse Ox 96 04/17/21 06:34 Pertinent Lab Results Pertinent Lab Results: Laboratory Tests 04/03/21 04/03/21 04/03/21 14:24 14:24 14:25 WBC 7.4 RBC 5.46 Hgb 17.7 Hct 51.9 MCV 95.1 MCH 32.4 MCHC 34.1 RDW 13.0 Plt Count 181 MPV 9.9 Immature Gran % (Auto) 0.4 Neut % (Auto) 48.2 Lymph % (Auto) 45.0 H [facility] % (Auto) 5.9 Eos % (Auto) 0.1 Baso % (Auto) 0.4 Lymph # (Auto) 3.3 [facility] # (Auto) 0.4 Eos # (Auto) 0.0 Baso # (Auto) 0.0 Abs Immat Gran (auto) 0.03 Absolute Neuts (auto) 3.5 Absolute Nucleated RBC 0.000 Nucleated RBC % (auto) 0.0 Sodium 139 Potassium 4.1 Chloride 107 Carbon Dioxide 25 Anion Gap 11 L BUN 12 Creatinine 1.04 Estim Creat Clear Calc 88.6 Estimated GFR > 60 POC Glucose Random Glucose 194 H Estimat Average Glucose Hemoglobin A1c % Calcium 9.2 Total Bilirubin 0.3 Direct Bilirubin < 0.2 AST 27 ALT 63 H Alkaline Phosphatase 96 Total Protein 6.9 Albumin 4.2 Triglycerides Cholesterol LDL Cholesterol, Calc HDL Cholesterol TSH Salicylates < 5.0 L Urine Opiates Screen Urine Fentanyl Screen Acetaminophen < 1 Ur Barbiturates Screen Ur Phencyclidine Scrn Ur Amphetamines Screen U Benzodiazepines Scrn Urine Cocaine Screen U Marijuana (THC) Screen Ethyl Alcohol < 10 COVID-19 ([facility]) [facility] 04/03/21 04/03/21 04/04/21 14:25 14:27 10:50 WBC RBC Hgb Hct MCV MCH MCHC RDW Plt Count MPV Immature Gran % (Auto) Neut % (Auto) Lymph % (Auto) [facility] % (Auto) Eos % (Auto) Baso % (Auto) Lymph # (Auto) [facility] # (Auto) Eos # (Auto) Baso # (Auto) Abs Immat Gran (auto) Absolute Neuts (auto) Absolute Nucleated RBC Nucleated RBC % (auto) Sodium Potassium Chloride Carbon Dioxide Anion Gap BUN Creatinine Estim Creat Clear Calc Estimated GFR POC Glucose Random Glucose Estimat Average Glucose Hemoglobin A1c % Calcium Total Bilirubin Direct Bilirubin AST ALT Alkaline Phosphatase Total Protein Albumin Triglycerides Cholesterol LDL Cholesterol, Calc HDL Cholesterol TSH Salicylates Urine Opiates Screen Not Detected Urine Fentanyl Screen POSITIVE H Acetaminophen Ur Barbiturates Screen Not Detected Ur Phencyclidine Scrn Not Detected Ur Amphetamines Screen Not Detected U Benzodiazepines Scrn Not Detected Urine Cocaine Screen Not Detected U Marijuana (THC) Screen POSITIVE H Ethyl Alcohol COVID-19 ([facility]) Negative Negative [facility] See Note See Note 04/05/21 04/05/21 04/05/21 08:17 08:17 22:41 WBC RBC Hgb Hct MCV MCH MCHC RDW Plt Count MPV Immature Gran % (Auto) Neut % (Auto) Lymph % (Auto) [facility] % (Auto) Eos % (Auto) Baso % (Auto) Lymph # (Auto) [facility] # (Auto) Eos # (Auto) Baso # (Auto) Abs Immat Gran (auto) Absolute Neuts (auto) Absolute Nucleated RBC Nucleated RBC % (auto) Sodium Potassium Chloride Carbon Dioxide Anion Gap BUN Creatinine Estim Creat Clear Calc Estimated GFR POC Glucose 192 H Random Glucose Estimat Average Glucose 160 Hemoglobin A1c % 7.2 Calcium Total Bilirubin Direct Bilirubin AST ALT Alkaline Phosphatase Total Protein Albumin Triglycerides 211 Cholesterol 182 LDL Cholesterol, Calc 110 HDL Cholesterol 30 TSH Salicylates Urine Opiates Screen Urine Fentanyl Screen Acetaminophen Ur Barbiturates Screen Ur Phencyclidine Scrn Ur Amphetamines Screen U Benzodiazepines Scrn Urine Cocaine Screen U Marijuana (THC) Screen Ethyl Alcohol COVID-19 ([facility]) [facility] 04/06/21 04/06/21 04/07/21 05:39 19:30 05:25 WBC RBC Hgb Hct MCV MCH MCHC RDW Plt Count MPV Immature Gran % (Auto) Neut % (Auto) Lymph % (Auto) [facility] % (Auto) Eos % (Auto) Baso % (Auto) Lymph # (Auto) [facility] # (Auto) Eos # (Auto) Baso # (Auto) Abs Immat Gran (auto) Absolute Neuts (auto) Absolute Nucleated RBC Nucleated RBC % (auto) Sodium Potassium Chloride Carbon Dioxide Anion Gap BUN Creatinine Estim Creat Clear Calc Estimated GFR POC Glucose 145 H 190 H 144 H Random Glucose Estimat Average Glucose Hemoglobin A1c % Calcium Total Bilirubin Direct Bilirubin AST ALT Alkaline Phosphatase Total Protein Albumin Triglycerides Cholesterol LDL Cholesterol, Calc HDL Cholesterol TSH Salicylates Urine Opiates Screen Urine Fentanyl Screen Acetaminophen Ur Barbiturates Screen Ur Phencyclidine Scrn Ur Amphetamines Screen U Benzodiazepines Scrn Urine Cocaine Screen U Marijuana (THC) Screen Ethyl Alcohol COVID-19 ([facility]) [facility] 04/07/21 04/08/21 04/09/21 21:21 21:03 06:50 WBC RBC Hgb Hct MCV MCH MCHC RDW Plt Count MPV Immature Gran % (Auto) Neut % (Auto) Lymph % (Auto) [facility] % (Auto) Eos % (Auto) Baso % (Auto) Lymph # (Auto) [facility] # (Auto) Eos # (Auto) Baso # (Auto) Abs Immat Gran (auto) Absolute Neuts (auto) Absolute Nucleated RBC Nucleated RBC % (auto) Sodium Potassium Chloride Carbon Dioxide Anion Gap BUN Creatinine Estim Creat Clear Calc Estimated GFR POC Glucose 147 H 157 H 155 H Random Glucose Estimat Average Glucose Hemoglobin A1c % Calcium Total Bilirubin Direct Bilirubin AST ALT Alkaline Phosphatase Total Protein Albumin Triglycerides Cholesterol LDL Cholesterol, Calc HDL Cholesterol TSH Salicylates Urine Opiates Screen Urine Fentanyl Screen Acetaminophen Ur Barbiturates Screen Ur Phencyclidine Scrn Ur Amphetamines Screen U Benzodiazepines Scrn Urine Cocaine Screen U Marijuana (THC) Screen Ethyl Alcohol COVID-19 ([facility]) COVID-19 [facility] 04/09/21 04/09/21 04/10/21 07:59 16:39 06:23 WBC RBC Hgb Hct MCV MCH MCHC RDW Plt Count MPV Immature Gran % (Auto) Neut % (Auto) Lymph % (Auto) [facility] % (Auto) Eos % (Auto) Baso % (Auto) Lymph # (Auto) [facility] # (Auto) Eos # (Auto) Baso # (Auto) Abs Immat Gran (auto) Absolute Neuts (auto) Absolute Nucleated RBC Nucleated RBC % (auto) Sodium Potassium Chloride Carbon Dioxide Anion Gap BUN Creatinine Estim Creat Clear Calc Estimated GFR POC Glucose 183 H 139 H Random Glucose Estimat Average Glucose Hemoglobin A1c % Calcium Total Bilirubin Direct Bilirubin AST ALT Alkaline Phosphatase Total Protein Albumin Triglycerides Cholesterol LDL Cholesterol, Calc HDL Cholesterol TSH 0.88 Salicylates Urine Opiates Screen Urine Fentanyl Screen Acetaminophen Ur Barbiturates Screen Ur Phencyclidine Scrn Ur Amphetamines Screen U Benzodiazepines Scrn Urine Cocaine Screen U Marijuana (THC) Screen Ethyl Alcohol COVID-19 ([facility]) COVID-19 [employer] [facility] 04/10/21 04/11/21 04/11/21 17:22 05:47 08:26 WBC RBC Hgb Hct MCV MCH MCHC RDW Plt Count MPV Immature Gran % (Auto) Neut % (Auto) Lymph % (Auto) [facility] % (Auto) Eos % (Auto) Baso % (Auto) Lymph # (Auto) [facility] # (Auto) Eos # (Auto) Baso # (Auto) Abs Immat Gran (auto) Absolute Neuts (auto) Absolute Nucleated RBC Nucleated RBC % (auto) Sodium Potassium Chloride Carbon Dioxide Anion Gap BUN Creatinine 1.06 Estim Creat Clear Calc 86.4 Estimated GFR > 60 POC Glucose 155 H 123 H Random Glucose Estimat Average Glucose Hemoglobin A1c % Calcium Total Bilirubin Direct Bilirubin AST ALT Alkaline Phosphatase Total Protein Albumin Triglycerides Cholesterol LDL Cholesterol, Calc HDL Cholesterol TSH Salicylates Urine Opiates Screen Urine Fentanyl Screen Acetaminophen Ur Barbiturates Screen Ur Phencyclidine Scrn Ur Amphetamines Screen U Benzodiazepines Scrn Urine Cocaine Screen U Marijuana (THC) Screen Ethyl Alcohol COVID-19 ([facility]) COVID-19 [facility] [facility] 04/11/21 04/11/21 04/12/21 08:26 16:59 05:39 WBC RBC Hgb Hct MCV MCH MCHC RDW Plt Count MPV Immature Gran % (Auto) Neut % (Auto) Lymph % (Auto) [facility] % (Auto) Eos % (Auto) Baso % (Auto) Lymph # (Auto) [facility] # (Auto) Eos # (Auto) Baso # (Auto) Abs Immat Gran (auto) Absolute Neuts (auto) Absolute Nucleated RBC Nucleated RBC % (auto) Sodium 140 Potassium 4.3 Chloride 106 Carbon Dioxide 27 Anion Gap 11 L BUN 18 H Creatinine 1.02 Estim Creat Clear Calc 89.8 Estimated GFR > 60 POC Glucose 160 H 140 H Random Glucose 147 H Estimat Average Glucose Hemoglobin A1c % Calcium 9.4 Total Bilirubin Direct Bilirubin AST ALT Alkaline Phosphatase Total Protein Albumin Triglycerides Cholesterol LDL Cholesterol, Calc HDL Cholesterol TSH Salicylates Urine Opiates Screen Urine Fentanyl Screen Acetaminophen Ur Barbiturates Screen Ur Phencyclidine Scrn Ur Amphetamines Screen U Benzodiazepines Scrn Urine Cocaine Screen U Marijuana (THC) Screen Ethyl Alcohol COVID-19 ([facility]) COVID-19 [facility] [facility] 04/12/21 04/13/21 04/13/21 16:46 05:41 16:29 WBC RBC Hgb Hct MCV MCH MCHC RDW Plt Count MPV Immature Gran % (Auto) Neut % (Auto) Lymph % (Auto) [facility] % (Auto) Eos % (Auto) Baso % (Auto) Lymph # (Auto) [facility] # (Auto) Eos # (Auto) Baso # (Auto) Abs Immat Gran (auto) Absolute Neuts (auto) Absolute Nucleated RBC Nucleated RBC % (auto) Sodium Potassium Chloride Carbon Dioxide Anion Gap BUN Creatinine Estim Creat Clear Calc Estimated GFR POC Glucose 132 H 122 H 164 H Random Glucose Estimat Average Glucose Hemoglobin A1c % Calcium Total Bilirubin Direct Bilirubin AST ALT Alkaline Phosphatase Total Protein Albumin Triglycerides Cholesterol LDL Cholesterol, Calc HDL Cholesterol TSH Salicylates Urine Opiates Screen Urine Fentanyl Screen Acetaminophen Ur Barbiturates Screen Ur Phencyclidine Scrn Ur Amphetamines Screen U Benzodiazepines Scrn Urine Cocaine Screen U Marijuana (THC) Screen Ethyl Alcohol COVID-19 ([facility]) COVID-19 [facility] 04/14/21 04/14/21 04/15/21 06:06 16:47 05:14 WBC RBC Hgb Hct MCV MCH MCHC RDW Plt Count MPV Immature Gran % (Auto) Neut % (Auto) Lymph % (Auto) [facility] % (Auto) Eos % (Auto) Baso % (Auto) Lymph # (Auto) [facility] # (Auto) Eos # (Auto) Baso # (Auto) Abs Immat Gran (auto) Absolute Neuts (auto) Absolute Nucleated RBC Nucleated RBC % (auto) Sodium Potassium Chloride Carbon Dioxide Anion Gap BUN Creatinine Estim Creat Clear Calc Estimated GFR POC Glucose 133 H 186 H 118 H Random Glucose Estimat Average Glucose Hemoglobin A1c % Calcium Total Bilirubin Direct Bilirubin AST ALT Alkaline Phosphatase Total Protein Albumin Triglycerides Cholesterol LDL Cholesterol, Calc HDL Cholesterol TSH Salicylates Urine Opiates Screen Urine Fentanyl Screen Acetaminophen Ur Barbiturates Screen Ur Phencyclidine Scrn Ur Amphetamines Screen U Benzodiazepines Scrn Urine Cocaine Screen U Marijuana (THC) Screen Ethyl Alcohol COVID-19 ([facility]) [facility] 04/15/21 04/16/21 04/16/21 16:54 04:53 16:51 WBC RBC Hgb Hct MCV MCH MCHC RDW Plt Count MPV Immature Gran % (Auto) Neut % (Auto) Lymph % (Auto) [facility] % (Auto) Eos % (Auto) Baso % (Auto) Lymph # (Auto) [facility] # (Auto) Eos # (Auto) Baso # (Auto) Abs Immat Gran (auto) Absolute Neuts (auto) Absolute Nucleated RBC Nucleated RBC % (auto) Sodium Potassium Chloride Carbon Dioxide Anion Gap BUN Creatinine Estim Creat Clear Calc Estimated GFR POC Glucose 203 H 118 H 239 H Random Glucose Estimat Average Glucose Hemoglobin A1c % Calcium Total Bilirubin Direct Bilirubin AST ALT Alkaline Phosphatase Total Protein Albumin Triglycerides Cholesterol LDL Cholesterol, Calc HDL Cholesterol TSH Salicylates Urine Opiates Screen Urine Fentanyl Screen Acetaminophen Ur Barbiturates Screen Ur Phencyclidine Scrn Ur Amphetamines Screen U Benzodiazepines Scrn Urine Cocaine Screen U Marijuana (THC) Screen Ethyl Alcohol COVID-19 ([facility]) [facility] 04/17/21 05:58 WBC RBC Hgb Hct MCV MCH MCHC RDW Plt Count MPV Immature Gran % (Auto) Neut % (Auto) Lymph % (Auto) [facility] % (Auto) Eos % (Auto) Baso % (Auto) Lymph # (Auto) [facility] # (Auto) Eos # (Auto) Baso # (Auto) Abs Immat Gran (auto) Absolute Neuts (auto) Absolute Nucleated RBC Nucleated RBC % (auto) Sodium Potassium Chloride Carbon Dioxide Anion Gap BUN Creatinine Estim Creat Clear Calc Estimated GFR POC Glucose 108 Random Glucose Estimat Average Glucose Hemoglobin A1c % Calcium Total Bilirubin Direct Bilirubin AST ALT Alkaline Phosphatase Total Protein Albumin Triglycerides Cholesterol LDL Cholesterol, Calc HDL Cholesterol TSH Salicylates Urine Opiates Screen Urine Fentanyl Screen Acetaminophen Ur Barbiturates Screen Ur Phencyclidine Scrn Ur Amphetamines Screen U Benzodiazepines Scrn Urine Cocaine Screen U Marijuana (THC) Screen Ethyl Alcohol COVID-19 ([facility]) COVID-19 Clin Com Airway Mallampati Class: II TM Dist: >3cm Neck ROM: Full Denture: Upper and Lower Heart: rrr Lungs: cta Assessment and Plan Assessment Anesthesia Assessment: Anesthesia Plan Discussed and Chart Reviewed Final Anesthetic Review Family History of Problems with Anesthesia: No History of Problems with Anesthesia: No NPO: Yes ASA Class: III Final Preanesthetic Review: No Changes in Pt Med Stat, Meds/Allgs Chart Reviewed and Consent Obtained/Reviewed Patient Risk: Intermediate Procedure Risk: Intermediate Anesthetic Plan Anesthetic Plan: GA Disposition: Standard PACU
--- NOTE | 2021-04-17 07:52 | MHC.SHP ---
Pre-Procedural Eval Section A Date of Service: 04/17/21 The patient is an INPATIENT: Yes Changes since office visit: No Cold of Flu in the past 2 weeks, No New Medical Problems, No Changes in Medication and No Patient answered all questions The History & Physical has been completed within 30 days and I have reviewed it.: Yes Section B Chief Complaint: Depression,SI Allergies: Allergies Allergy/AdvReac Type Severity Reaction Status Date / Time NSAIDS (Non-Steroidal AdvReac Severe Shakiness Verified 04/04/21 11:52 Anti-Inflamma aspirin AdvReac Intermediate Shortness Verified 04/04/21 11:52 of Breath bupropion [From Wellbutrin] AdvReac Intermediate Agitated Verified 04/04/21 11:52 Plan I have reviewed the history and physical and performed a pertinent physical examination on my patient. No changes have occurred unless specified.
--- NOTE | 2021-04-17 07:53 | HO.ECTPROC ---
ECT Procedure Note Diagnosis/Treatment Date of Service: 04/17/21 Diagnosis: Bipolar disorder Previous ECT Date: 04/14/21 Current Treatment Number: 5 Treatment: Series Interval Clinical Notes: The patient reported improvement of his mood, he asked about discharge, no side effects with previous ECT ECT Settings Device: THYMATRON DGx Electrode Placement: Right Unilateral Program/Pulse Width: 0.50 Energy Percent: 100 Seizure Duration By EEG (in seconds): 60 By Motor Observation (in seconds): 14 Medications Administration General Anesthetic: Etomidate (16) Muscle Relaxant: Succinylcholine (100) Ancillary Medications Analgesics: Torodol - Pre ECT Anti-emetics: Zofran - Pre ECT Miscillaneous Medications: Propofol Airway Management Airway Management: LMA Treatment Recommendations No Changes Recommended: No change Pt Tolerated Procedure w/o Issue: Yes
[2021-04-17] MEDS: Acetaminophen 325 MG TABLET 650 MG PO (08:39)
[2021-04-17] MEDS: lisinopriL 5 MG TABLET PO (09:26)
[2021-04-17] MEDS: Omeprazole 20 MG CAPSULE.DR PO ×2 (09:26→22:16)
[2021-04-17] MEDS: ARIPiprazole 10 MG TABLET PO (09:26)
[2021-04-17] MEDS: Venlafaxine HCl ER 37.5 MG CAP.ER.24H 112.5 MG PO (09:27)
[2021-04-17] MEDS: Levothyroxine Sodium 75 MCG TABLET 150 MCG PO (09:27)
--- NOTE | 2021-04-17 10:17 | HO.PSYCHPN ---
Subjective Subjective Date of Service: 04/17/21 Reason For Visit: Depression,SI Subjective Notes: Conditional Voluntary Guardianship: No Medical Problems Affecting Mental Status: No Interim History: pt doing better more stable agrees to start lithium denies active si some st memory dysfx Review of Systems Acute medical concerns: No Medical Review of Systems: changed (some st memory dysfx ) Mental Status Exam Mental Status Exam Patient Appearance: Well Grooomed Patient Orientation: Person, Place and Situation Level of Consciousness: Awake Patient Behavior: Appropriate Mood Description: Calm, Constricted, Depressed and Anxious Affect Description: Appropriate and Constricted Ability to Follow Directions: Good Memory Description: Episodic Impaired Delusions: Not Present Thought Content: positive for Obsessional Thoughts, negative for Suicidal Ideation or negative for Homicidal Ideation Depressive Symptoms: Increased Anxiety Judgement and Insight: pimproved judgement and reflection Diagnostics Vital Signs (24Hr): Vital Signs - 24 hr 04/16/21 21:00 04/17/21 06:00 04/17/21 06:14 Temperature 98.5 F 98.1 F Pulse Rate 79 105 H 105 H Respiratory Rate 18 18 Blood Pressure 135/92 H 118/70 118/70 Pulse Oximetry 98 97 97 04/17/21 06:34 04/17/21 08:18 04/17/21 08:23 Temperature 97.7 F 97.9 F Pulse Rate 73 69 78 Respiratory Rate 18 16 18 Blood Pressure 125/79 120/74 145/101 H Pulse Oximetry 96 96 98 04/17/21 08:28 04/17/21 08:33 04/17/21 08:48 Temperature 97.7 F Pulse Rate 79 85 74 Respiratory Rate 22 H 18 18 Blood Pressure 143/93 H 134/83 143/95 H Pulse Oximetry 97 96 98 04/17/21 09:21 Temperature 97.9 F Pulse Rate 73 Respiratory Rate 16 Blood Pressure 138/78 Pulse Oximetry 98 BMI result Body Mass Index 27.6 Labs Results: 04/03/21 14:24 04/11/21 08:26 Labs: Laboratory Results - last 48 hr 04/15/21 04/16/21 04/16/21 16:54 04:53 16:51 POC Glucose 203 H 118 H 239 H 04/17/21 05:58 POC Glucose 108 Medications Medications Current Medications Acetaminophen (Acetaminophen 325 Mg Tablet) 650 mg PO Q6H PRN PRN Reason: Headache/Pain Mild Scale (1-3) Last Admin: 04/17/21 08:39 Dose: 650 mg Documented by: Al Hydroxide/Mg Hydroxide (Magnesium Hydrox/Alum Hydrox 30 Ml Oral.Susp) 30 ml PO Q6H PRN PRN Reason: Heartburn/Nausea Aripiprazole (Aripiprazole 10 Mg Tablet) 10 mg PO DAILY [facility] Last Admin: 04/17/21 09:26 Dose: 10 mg Documented by: Clonidine HCl (Clonidine Hcl 0.1 Mg Tablet) 0.1 mg PO BEDTIME [facility]; Protocol Last Admin: 04/16/21 21:15 Dose: 0.1 mg Documented by: Hydroxyzine HCl (Hydroxyzine Hcl 25 Mg Tablet) 25 mg PO QID PRN PRN Reason: Anxiety Last Admin: 04/06/21 18:23 Dose: 25 mg Documented by: Levothyroxine Sodium (Levothyroxine Sodium 75 Mcg Tablet) 150 mcg PO DAILY@0600 [facility] Last Admin: 04/17/21 09:27 Dose: 150 mcg Documented by: Lisinopril (Lisinopril 5 Mg Tablet) 5 mg PO DAILY [facility]; Protocol Last Admin: 04/17/21 09:26 Dose: 5 mg Documented by: Magnesium Hydroxide (Milk Of Magnesia 30 Ml Oral.Susp) 30 ml PO DAILY PRN PRN Reason: Constipation Metformin HCl (Metformin Hcl Er 500 Mg Tab.Er.24h) 500 mg PO DAILY@1700 [facility] Last Admin: 04/16/21 16:54 Dose: 500 mg Documented by: Nicotine (Nicotine 21 Mg Patch.Td24) 21 mg TRANSDERMA DAILY PRN PRN Reason: smoking cessation Last Admin: 04/07/21 09:36 Dose: 21 mg Documented by: Nicotine Polacrilex (Nicotine Polacrilex 2 Mg Gum) 4 mg BUCCAL Q2H PRN PRN Reason: Nicotine Cravings Last Admin: 04/16/21 16:54 Dose: 4 mg Documented by: Omeprazole (Omeprazole 20 Mg Capsule.Dr) 20 mg PO BID [facility] Last Admin: 04/17/21 09:26 Dose: 20 mg Documented by: Prazosin HCl (Prazosin Hcl 1 Mg Capsule) 2 mg PO BEDTIME [facility]; Protocol Last Admin: 04/16/21 21:16 Dose: 2 mg Documented by: Prazosin HCl (Prazosin Hcl 5 Mg Capsule) 5 mg PO BEDTIME [facility]; Protocol Last Admin: 04/16/21 21:16 Dose: 5 mg Documented by: Quetiapine Fumarate (Quetiapine Fumarate 25 Mg Tablet) 25 mg PO Q4H PRN PRN Reason: anxiety/restlessness Last Admin: 04/13/21 23:54 Dose: 25 mg Documented by: Quetiapine Fumarate (Quetiapine Fumarate 50 Mg Tablet) 50 mg PO BEDTIME [facility] Last Admin: 04/16/21 21:16 Dose: 50 mg Documented by: Tamsulosin HCl (Tamsulosin Hcl 0.4 Mg Capsule) 0.8 mg PO BEDTIME [facility] Last Admin: 04/16/21 21:15 Dose: 0.8 mg Documented by: Trazodone HCl (Trazodone Hcl 50 Mg Tablet) 50 mg PO BEDTIME [facility] Last Admin: 04/16/21 21:16 Dose: 50 mg Documented by: Allergies Allergies Allergy/AdvReac Type Severity Reaction Status Date / Time NSAIDS (Non-Steroidal AdvReac Severe Shakiness Verified 04/04/21 11:52 Anti-Inflamma aspirin AdvReac Intermediate Shortness Verified 04/04/21 11:52 of Breath bupropion [From Wellbutrin] AdvReac Intermediate Agitated Verified 04/04/21 11:52 Assessment & Plan Assessment & Plan (1) Major depressive disorder, recurrent severe without psychotic features: Status: Acute Code(s): F33.2 - Major depressive disorder, recurrent severe without psychotic features Assessment and Plan: Continue ECT taper Effexor literature given regarding bipolar to question of mixed episodes consider lithium Lamictal consider tx bipolar 2 ? borderline narcissistic pathology consider starting lithium sooner evaluate ect consider ptsd LT referral at [phone] Continue ECT consider started lithium continue Seroquel taper Effexor gradually 04/14/21 cont ect then transition to lithium 04/15/21 Weekend coverage- Continue plan of care 04/16/21 Weekend coverage-Continue plan of care-[place] handouts provided for pt review. 04/17/21 start lithium hold ect transition to outpt reviewed risks benefits some inc memory dysfx hold ect start lith consider maintenabnce ? 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 Patient continues to tolerate ECT following 2nd treatment; still depressed, still intermittent SI however he reports his mood is little better than on admission. No requests. I spent minutes with the patient and/or on the patient floor today, greater than?50% of which was spent counseling/coordinating care. Reason for contiued inpatient stay Substantial Risk for: harm to self and rapid decompensation
[2021-04-17] MEDS: Nicotine Polacrilex 2 MG GUM 4 MG BUCCAL (11:08)
[2021-04-17] MEDS: Nicotine 21 MG PATCH.TD24 TRANSDERMA (11:08)
[2021-04-17] MEDS: QUEtiapine Fumarate 25 MG TABLET PO (14:11)
[2021-04-17] MEDS: metFORMIN HCl ER 500 MG TAB.ER.24H PO (17:18)
[2021-04-17 17:30] LABS: Glucose, Whole Blood 145 mg/dL (60-115)
[2021-04-17] MEDS: Lithium Carbonate ER 300 MG TABLET.ER PO (22:14)
[2021-04-17] MEDS: Tamsulosin HCL 0.4 MG CAPSULE 0.8 MG PO (22:15)
[2021-04-17] MEDS: cloNIDine HCL 0.1 MG TABLET PO (22:15)
[2021-04-17] MEDS: traZODone HCL 50 MG TABLET PO (22:16)
[2021-04-17] MEDS: Prazosin HCL 5 MG CAPSULE PO (22:17)
[2021-04-17] MEDS: Prazosin HCL 1 MG CAPSULE 2 MG PO (22:18)
[2021-04-17] MEDS: QUEtiapine Fumarate 50 MG TABLET PO (22:18)
[2021-04-18 06:04] LABS: Glucose, Whole Blood 131 mg/dL (60-115)
[2021-04-18] MEDS: Levothyroxine Sodium 75 MCG TABLET 150 MCG PO (06:09)
[2021-04-18 08:01] VITALS: BP 114/68; PULSE 98; RESP 14; TEMP 36.7; O2SAT 97
[2021-04-18] MEDS: lisinopriL 5 MG TABLET PO (08:18)
[2021-04-18] MEDS: ARIPiprazole 10 MG TABLET PO (08:18)
[2021-04-18] MEDS: Omeprazole 20 MG CAPSULE.DR PO ×2 (08:18→20:15)
[2021-04-18] MEDS: Venlafaxine HCl ER 75 MG CAP.ER.24H PO (08:18)
[2021-04-18] MEDS: Nicotine 21 MG PATCH.TD24 TRANSDERMA (12:22)
[2021-04-18] MEDS: Acetaminophen 325 MG TABLET 650 MG PO (15:59)
[2021-04-18] MEDS: metFORMIN HCl ER 500 MG TAB.ER.24H PO (16:50)
[2021-04-18 16:55] LABS: Glucose, Whole Blood 179 mg/dL (60-115)
[2021-04-18 20:00] VITALS: BP 128/89; PULSE 73
[2021-04-18] MEDS: Tamsulosin HCL 0.4 MG CAPSULE 0.8 MG PO (20:14)
[2021-04-18] MEDS: QUEtiapine Fumarate 50 MG TABLET PO (20:14)
[2021-04-18] MEDS: Prazosin HCL 5 MG CAPSULE PO (20:14)
[2021-04-18] MEDS: Prazosin HCL 1 MG CAPSULE 2 MG PO (20:14)
[2021-04-18] MEDS: traZODone HCL 50 MG TABLET PO (20:14)
[2021-04-18] MEDS: cloNIDine HCL 0.1 MG TABLET PO (20:15)
[2021-04-18] MEDS: Lithium Carbonate ER 300 MG TABLET.ER PO (20:15)
--- NOTE | 2021-04-18 21:28 | HO.PSYCHPN ---
Subjective Subjective Date of Service: 04/25/21 Reason For Visit: Depression,SI Subjective Notes: Conditional Voluntary Guardianship: No Interim History: Patient calmer less depressed future oriented ECT on hold for tomorrow will continue next week patient asking to be discharged tomorrow [id number] in the hospital will hold tomorrow's ECT will do continue next week case reviewed with patient's nurse practitioner Oralia lanc[place] Medication Compliance: Yes Attending Groups: Intermittent Mental Status Exam Mental Status Exam Patient Appearance: Well Grooomed Patient Orientation: Person, Place, Time and Situation Level of Consciousness: Awake Patient Behavior: Appropriate Mood Description: Calm, Appropriate and Blunted Affect Description: Calm and Apprehensive Speech Pattern: Clear Memory Description: Intact Hallucinations: None Delusions: Not Present Thought Process: Intact Thought Content: positive for Intact, negative for Suicidal Ideation or negative for Homicidal Ideation Depressive Symptoms: Increased Anxiety Judgement: Good Diagnostics Vital Signs (24Hr): Vital Signs - 24 hr 04/17/21 22:00 04/18/21 08:01 04/18/21 20:00 Temperature 97.9 F 98.0 F Pulse Rate 86 98 73 Respiratory Rate 14 Blood Pressure 131/78 114/68 128/89 Pulse Oximetry 97 BMI result Body Mass Index 27.6 Labs Results: 04/03/21 14:24 04/11/21 08:26 Labs: Laboratory Results - last 48 hr 04/17/21 04/17/21 04/18/21 05:58 17:16 06:00 POC Glucose 108 145 H 131 H 04/18/21 16:47 POC Glucose 179 H Medications Medications Current Medications Acetaminophen (Acetaminophen 325 Mg Tablet) 650 mg PO Q6H PRN PRN Reason: Headache/Pain Mild Scale (1-3) Last Admin: 04/18/21 15:59 Dose: 650 mg Documented by: Al Hydroxide/Mg Hydroxide (Magnesium Hydrox/Alum Hydrox 30 Ml Oral.Susp) 30 ml PO Q6H PRN PRN Reason: Heartburn/Nausea Aripiprazole (Aripiprazole 10 Mg Tablet) 10 mg PO DAILY [facility] Last Admin: 04/18/21 08:18 Dose: 10 mg Documented by: Clonidine HCl (Clonidine Hcl 0.1 Mg Tablet) 0.1 mg PO BEDTIME [facility]; Protocol Last Admin: 04/18/21 20:15 Dose: 0.1 mg Documented by: Hydroxyzine HCl (Hydroxyzine Hcl 25 Mg Tablet) 25 mg PO QID PRN PRN Reason: Anxiety Last Admin: 04/06/21 18:23 Dose: 25 mg Documented by: Levothyroxine Sodium (Levothyroxine Sodium 75 Mcg Tablet) 150 mcg PO DAILY@0600 [facility] Last Admin: 04/18/21 06:09 Dose: 150 mcg Documented by: Lisinopril (Lisinopril 5 Mg Tablet) 5 mg PO DAILY [facility]; Protocol Last Admin: 04/18/21 08:18 Dose: 5 mg Documented by: [place] Carbonate ([place] Carbonate Er 300 Mg Tablet.Er) 300 mg PO BEDTIME [facility] Last Admin: 04/18/21 20:15 Dose: 300 mg Documented by: Magnesium Hydroxide (Milk Of Magnesia 30 Ml Oral.Susp) 30 ml PO DAILY PRN PRN Reason: Constipation Metformin HCl (Metformin Hcl Er 500 Mg Tab.Er.24h) 500 mg PO DAILY@1700 [facility] Last Admin: 04/18/21 16:50 Dose: 500 mg Documented by: Nicotine (Nicotine 21 Mg Patch.Td24) 21 mg TRANSDERMA DAILY PRN PRN Reason: smoking cessation Last Admin: 04/18/21 12:22 Dose: 21 mg Documented by: Nicotine Polacrilex (Nicotine Polacrilex 2 Mg Gum) 4 mg BUCCAL Q2H PRN PRN Reason: Nicotine Cravings Last Admin: 04/17/21 11:08 Dose: 4 mg Documented by: Omeprazole (Omeprazole 20 Mg Capsule.Dr) 20 mg PO BID [facility] Last Admin: 04/18/21 20:15 Dose: 20 mg Documented by: Prazosin HCl (Prazosin Hcl 1 Mg Capsule) 2 mg PO BEDTIME [facility]; Protocol Last Admin: 04/18/21 20:14 Dose: 2 mg Documented by: Prazosin HCl (Prazosin Hcl 5 Mg Capsule) 5 mg PO BEDTIME [facility]; Protocol Last Admin: 04/18/21 20:14 Dose: 5 mg Documented by: Quetiapine Fumarate (Quetiapine Fumarate 25 Mg Tablet) 25 mg PO Q4H PRN PRN Reason: anxiety/restlessness Last Admin: 04/17/21 14:11 Dose: 25 mg Documented by: Quetiapine Fumarate (Quetiapine Fumarate 50 Mg Tablet) 50 mg PO BEDTIME [facility] Last Admin: 04/18/21 20:14 Dose: 50 mg Documented by: Tamsulosin HCl (Tamsulosin Hcl 0.4 Mg Capsule) 0.8 mg PO BEDTIME [facility] Last Admin: 04/18/21 20:14 Dose: 0.8 mg Documented by: Trazodone HCl (Trazodone Hcl 50 Mg Tablet) 50 mg PO BEDTIME [facility] Last Admin: 04/18/21 20:14 Dose: 50 mg Documented by: Venlafaxine HCl (Venlafaxine Hcl Er 75 Mg Cap.Er.24h) 75 mg PO DAILY [facility] Last Admin: 04/18/21 08:18 Dose: 75 mg Documented by: Allergies Allergies Allergy/AdvReac Type Severity Reaction Status Date / Time NSAIDS (Non-Steroidal AdvReac Severe Shakiness Verified 04/04/21 11:52 Anti-Inflamma aspirin AdvReac Intermediate Shortness Verified 04/04/21 11:52 of Breath bupropion [From Wellbutrin] AdvReac Intermediate Agitated Verified 04/04/21 11:52 Assessment & Plan Assessment & Plan (1) Major depressive disorder, recurrent severe without psychotic features: Status: Acute Code(s): F33.2 - Major depressive disorder, recurrent severe without psychotic features Assessment and Plan: Continue ECT taper Effexor literature given regarding bipolar to question of mixed episodes consider lithium Lamictal consider tx bipolar 2 ? borderline narcissistic pathology consider starting lithium sooner evaluate ect consider ptsd LT referral at [phone] Continue ECT consider started lithium continue Seroquel taper Effexor gradually 04/14/21 cont ect then transition to lithium 04/15/21 Weekend coverage- Continue plan of care 04/16/21 Weekend coverage-Continue plan of care-[place] handouts provided for pt review. 04/17/21 start lithium hold ect transition to outpt reviewed risks benefits some inc memory dysfx hold ect start lith consider maintenabnce ? 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 Patient continues to tolerate ECT following 2nd treatment; still depressed, still intermittent SI however he reports his mood is little better than on admission. No requests. I spent minutes with the patient and/or on the patient floor today, greater than?50% of which was spent counseling/coordinating care. Reason for contiued inpatient stay Substantial Risk for: harm to self and rapid decompensation
[2021-04-19] MEDS: Levothyroxine Sodium 75 MCG TABLET 150 MCG PO (05:50)
[2021-04-19 05:56] LABS: Glucose, Whole Blood 134 mg/dL (60-115)
[2021-04-19 07:42] LABS: Lithium 0.17 mmol/L (0.60-1.20)
[2021-04-19 07:49] LABS: Alanine Aminotransferase 109 U/L (0-40); Albumin Level 4.2 g/dL (3.5-5.0); Alkaline Phosphatase 87 U/L (39-117); Anion Gap 12 (12-20); Aspartate Amino Transferase 31 U/L (5-37); Blood Urea Nitrogen 18 mg/dL (9-16); Calcium 9.7 mg/dL (8.4-10.2); Carbon Dioxide 24 mmol/L (22-29); Chloride 106 mmol/L (96-108); Creatinine Clr Calc Pharmacy 93.3; Estimated Glomerular Filt Rate > 60; Glucose Fasting 202 mg/dL (60-99); Potassium 4.2 mmol/L (3.3-5.1); Sodium 138 mmol/L (135-145); Total Protein 6.5 g/dL (6.5-8.0)
[2021-04-19 07:57] LABS: Bilirubin Total 0.3 mg/dL (0.0-1.0)
[2021-04-19] MEDS: Omeprazole 20 MG CAPSULE.DR PO (08:31)
[2021-04-19] MEDS: lisinopriL 5 MG TABLET PO (08:31)
[2021-04-19] MEDS: ARIPiprazole 10 MG TABLET PO (08:31)
[2021-04-19] MEDS: Venlafaxine HCl ER 75 MG CAP.ER.24H PO (08:31)
[2021-04-19 08:32] VITALS: BP 128/70; PULSE 75; RESP 18; TEMP 36.7; O2SAT 97
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
== END 2021-04-19 10:00 | disposition home or self-care (01) | DRG 885 ==
LOC: HO.ED 04-04 10:57 → HO.PM5 04-04 16:08
PROVIDERS: Nurse Practitioner Family; Physician Assistant; Admitting Provider Psychiatry & Neurology Psychiatry; Emergency Provider Emergency Medicine Emergency Medical Services; PCP Physician Assistant; Visit Provider Psychiatry & Neurology Psychiatry
PROC: GZB4ZZZ Other Electroconvulsive Therapy (ICD-10-PCS; CPT 90870; principal; 2021-04-07 07:30)
PROC: (CPT 90870; principal; 2021-04-17 07:00)
DX: F31.30 Bipolar disorder, current episode depressed, mild or moderate severity, unspecified (principal); R45.851 Suicidal ideations; R73.9 Hyperglycemia, unspecified; F43.12 Post-traumatic stress disorder, chronic; Z20.822 Contact with and (suspected) exposure to COVID-19; E03.9 Hypothyroidism, unspecified; F17.210 Nicotine dependence, cigarettes, uncomplicated; Z71.6 Tobacco abuse counseling; Z88.6 Allergy status to analgesic agent; Z79.890 Hormone replacement therapy; Z79.899 Other long term (current) drug therapy
CPT/HCPCS: 36415; 80048; 80053; 80061; 80076; 80143; 80178; 80179; 80307; 82077; 82565; 82947; 83036; 84443; 85025; 87635; 90870; 93005; 99285; J0330; J2405

== ENCOUNTER 2021-04-26 06:01 | Day surgery (SDC) | payer OTHER, SELFPAY ==
[2021-04-26] VITALS (8 sets, daily range): BP systolic 106–132; BP diastolic 64–87; PULSE 77–91; RESP 16–19; TEMP 36.4–36.9; O2SAT 93–97; BMI 28.1
[2021-04-26 06:44] LABS: COVID-19 Test Negative (Negative)
--- NOTE | 2021-04-26 07:10 | P.CONAN_ITS ---
[facility] Active Problems Active Problems: All Active Problems (Updated 04/25/21 @ 11:28 by Merle Blood RN) Depression (Acute) Hyperglycemia (Acute) Bipolar 2 disorder, major depressive episode (Acute) PTSD (post-traumatic stress disorder) (Acute) Chronic post-traumatic stress disorder (PTSD) (Acute) Past Medical History Medical History Acute post-traumatic stress disorder Anxiety Chronic post-traumatic stress disorder (PTSD) COPD (chronic obstructive pulmonary disease) Depression Diabetes mellitus History of renal cell carcinoma Hypertension Hypothyroidism PTSD (post-traumatic stress disorder) Functional capacity: independent ambulation Family History Family history of problems with anesthesia: No Surgical History Surgical History Hx of foot surgery History of Problems with Anesthesia: No Social History Social History Household Members: Spouse, Children and Other Household Members Other:: Mother in -law Housing: House Do you presently have visiting nurse or other home services: No Patient Tobacco Use Status: Current everyday Tobacco user Tobacco use type: Cigarette Cigarette Packs Per Day: 1 Cigarettes Per Day: 20.0 Years Smoked: 32 Second Hand Smoke Exposure: Yes Use of substances other than those prescribed or required for medical reasons: No Substance Use Type: Marijuana Are you DNR?: No Advance Directives: No Advance Directives Information Provided: Yes service: Yes (Honorable discharge from Service as [place] [employer]) Sexual orientation: Did not discuss Meds Allergies Allergy/AdvReac Type Severity Reaction Status Date / Time NSAIDS (Non-Steroidal AdvReac Severe Shakiness Verified 04/04/21 11:52 Anti-Inflamma aspirin AdvReac Intermediate Shortness Verified 04/04/21 11:52 of Breath bupropion [From Wellbutrin] AdvReac Intermediate Agitated Verified 04/04/21 11:52 Home Medications Medication Instructions Recorded Confirmed Last Taken Type clonidine HCl 0.1 mg tablet 1 tab PO BEDTIME 04/03/21 04/25/21 04/24/21 07:00 History levothyroxine 150 mcg tablet 150 mcg PO DAILY@0600 04/03/21 04/25/21 04/25/21 07:00 History lisinopril 5 mg tablet 1 tab PO DAILY 04/03/21 04/25/21 04/25/21 07:00 History omeprazole 20 mg capsule,delayed 1 cap PO BID 04/03/21 04/25/21 04/25/21 07:00 History release prazosin 1 mg capsule 2 mg PO BEDTIME 04/03/21 04/25/21 04/24/21 21:00 History prazosin 5 mg capsule 5 mg PO BEDTIME 04/03/21 04/25/21 04/24/21 21:00 History sildenafil 100 mg tablet 1 tab PO DAILY PRN 04/03/21 04/25/21 Unknown History tamsulosin 0.4 mg capsule 2 cap PO BEDTIME 04/03/21 04/25/21 04/24/21 21:00 History Exam Exam Date and Time: April 26, 2021 0710 Pertinent Lab Results Pertinent Lab Results: Laboratory Tests 04/26/21 06:05 COVID-19 ([facility]) Negative COVID-19 Clin Com See Note Airway Mallampati Class: II TM Dist: >3cm Neck ROM: Full Heart: RRR Lungs: CTA Assessment and Plan Final Anesthetic Review Family History of Problems with Anesthesia: No History of Problems with Anesthesia: No NPO: Yes ASA Class: III Final Preanesthetic Review: No Changes in Pt Med Stat, Meds/Allgs Chart Reviewed, Consent Obtained/Reviewed and Anes Risks/Benef Reviewed Patient Risk: Low Anesthetic Plan Anesthetic Plan: GA Disposition: Standard PACU
[2021-04-26 07:12] LABS: Glucose, Whole Blood 145 mg/dL (60-115)
--- NOTE | 2021-04-26 07:26 | PC.NURSE ---
OK'D TO PROCEED PER RITIKA WITHOUT FULL CLEARANCE.
--- NOTE | 2021-04-26 07:33 | MHC.SHP ---
Pre-Procedural Eval Section A Date of Service: 04/26/21 The patient is an INPATIENT: No Changes since office visit: Yes Patient answered all questions; No Cold of Flu in the past 2 weeks, No New Medical Problems and No Changes in Medication The History & Physical has been completed within 30 days and I have reviewed it.: Yes Section B Chief Complaint: depression Allergies: Allergies Allergy/AdvReac Type Severity Reaction Status Date / Time NSAIDS (Non-Steroidal AdvReac Severe Shakiness Verified 04/04/21 11:52 Anti-Inflamma aspirin AdvReac Intermediate Shortness Verified 04/04/21 11:52 of Breath bupropion [From Wellbutrin] AdvReac Intermediate Agitated Verified 04/04/21 11:52 Plan I have reviewed the history and physical and performed a pertinent physical examination on my patient. No changes have occurred unless specified.
--- NOTE | 2021-04-26 07:34 | HO.ECTPROC ---
ECT Procedure Note Diagnosis/Treatment Date of Service: 04/26/21 Diagnosis: Bipolar disorder Current Treatment Number: 6 Treatment: Series ECT Settings Device: THYMATRON DGx Program/Pulse Width: 0.50 Energy Percent: 100 Medications Administration General Anesthetic: Etomidate (16) Muscle Relaxant: Succinylcholine (100) Ancillary Medications Anti-emetics: Zofran - Pre ECT Miscillaneous Medications: Propofol Airway Management Airway Management: LMA Treatment Recommendations No Changes Recommended: No change Notes: best with LMA f/u tx 2 weeks Pt Tolerated Procedure w/o Issue: Yes
[2021-04-26] MEDS: Acetaminophen 325 MG TABLET 650 MG PO (09:04)
--- NOTE | 2021-04-26 10:10 | HO.POSTANES ---
Post Anesthesia Evaluation Post Anesthesia Evaluation Vital Signs: Vital Signs Temp Pulse Resp BP Pulse Ox 04/26/21 09:05 98.5 F 89 18 132/87 94 04/26/21 08:50 83 19 132/87 93 04/26/21 08:35 85 16 132/87 94 04/26/21 08:20 85 16 123/83 97 04/26/21 08:15 77 16 106/64 96 04/26/21 08:10 91 16 115/75 96 04/26/21 08:05 97.6 F 90 16 118/76 96 04/26/21 07:10 98.0 F 81 16 111/75 97 Anesthesia: General Mental Status: Awake Pain Control: Satisfactory Nausea/Vomiting: None Hydration: Adequate Anesthesia-Related Issues: No Anes. Related Issues
== END 2021-04-26 09:19 | disposition home or self-care (01) ==
PROVIDERS: PCP Physician Assistant; Visit Provider Psychiatry & Neurology Psychiatry
PROC: (CPT 90870; principal; 2021-04-26 15:20)
DX: F31.9 Bipolar disorder, unspecified (principal); F43.12 Post-traumatic stress disorder, chronic; J44.9 Chronic obstructive pulmonary disease, unspecified; E11.9 Type 2 diabetes mellitus without complications; I10 Essential (primary) hypertension; Z88.8 Allergy status to other drugs, medicaments and biological substances; Z20.822 Contact with and (suspected) exposure to COVID-19; F17.210 Nicotine dependence, cigarettes, uncomplicated; Z79.899 Other long term (current) drug therapy
CPT/HCPCS: 36415; 80178; 82947; 87635; 90870; J0330; J2405

== ENCOUNTER 2021-05-05 05:50 | Day surgery (SDC) | payer OTHER, SELFPAY ==
[2021-05-05] VITALS (7 sets, daily range): BP systolic 110–144; BP diastolic 74–124; PULSE 76–85; RESP 16–25; TEMP 36.1–36.8; O2SAT 94–96; BMI 28.1
[2021-05-05 06:44] LABS: COVID-19 Test Negative (Negative)
--- NOTE | 2021-05-05 07:26 | HO.ANESPROP2 ---
COUNT INCLUDES THE [facility] Active Problems Active Problems: All Active Problems (Updated 04/25/21 @ 11:28 by Merle Blood RN) Depression (Acute) Hyperglycemia (Acute) Bipolar 2 disorder, major depressive episode (Acute) PTSD (post-traumatic stress disorder) (Acute) Chronic post-traumatic stress disorder (PTSD) (Acute) Past Medical History Medical History Acute post-traumatic stress disorder Anxiety Chronic post-traumatic stress disorder (PTSD) COPD (chronic obstructive pulmonary disease) Depression Diabetes mellitus History of renal cell carcinoma Hypertension Hypothyroidism PTSD (post-traumatic stress disorder) Family History Family history of problems with anesthesia: No Surgical History Surgical History Hx of foot surgery History of Problems with Anesthesia: No Social History Social History Household Members: Spouse, Children and Other Household Members Other:: Mother in -law Housing: House Do you presently have visiting nurse or other home services: No Patient Tobacco Use Status: Current everyday Tobacco user Tobacco use type: Cigarette Cigarette Packs Per Day: 1 Cigarettes Per Day: 20.0 Years Smoked: 32 Second Hand Smoke Exposure: Yes Substance Use Type: Marijuana Advance Directives: No Advance Directives Information Provided: Yes service: Yes (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) Sexual orientation: Did not discuss Meds Allergies Allergy/AdvReac Type Severity Reaction Status Date / Time NSAIDS (Non-Steroidal AdvReac Severe Shakiness Verified 04/04/21 11:52 Anti-Inflamma aspirin AdvReac Intermediate Shortness Verified 04/04/21 11:52 of Breath bupropion [From Wellbutrin] AdvReac Intermediate Agitated Verified 04/04/21 11:52 Home Medications Medication Instructions Recorded Confirmed Last Taken Type clonidine HCl 0.1 mg tablet 1 tab PO BEDTIME 04/03/21 04/25/21 04/24/21 07:00 History levothyroxine 150 mcg tablet 150 mcg PO DAILY@0600 04/03/21 04/25/21 04/25/21 07:00 History lisinopril 5 mg tablet 1 tab PO DAILY 04/03/21 04/25/21 04/25/21 07:00 History omeprazole 20 mg capsule,delayed 1 cap PO BID 04/03/21 04/25/21 04/25/21 07:00 History release prazosin 1 mg capsule 2 mg PO BEDTIME 04/03/21 04/25/21 04/24/21 21:00 History prazosin 5 mg capsule 5 mg PO BEDTIME 04/03/21 04/25/21 04/24/21 21:00 History sildenafil 100 mg tablet 1 tab PO DAILY PRN 04/03/21 04/25/21 Unknown History tamsulosin 0.4 mg capsule 2 cap PO BEDTIME 04/03/21 04/25/21 04/24/21 21:00 History Exam Exam Date and Time: May 05, 2021 0726 Height,Weight and Vital Signs: Height 5 ft 8 in Weight 84.01 kg Last Vital Signs Temp 97.0 F 05/05/21 07:09 Pulse 76 05/05/21 07:09 Resp 16 05/05/21 07:09 BP 110/74 05/05/21 07:09 Pulse Ox 96 05/05/21 07:09 Pertinent Lab Results Pertinent Lab Results: Laboratory Tests 05/05/21 06:18 COVID-19 ([facility]) Negative COVID-19 Clin Com See Note Airway Mallampati Class: II (Edentulous) TM Dist: >3cm Neck ROM: Full Loose/Missing/Broken Teeth: Yes, Upper and Lower Heart: RRR Lungs: CTA Assessment and Plan Assessment Anesthesia Assessment: Anesthesia Plan Discussed and Chart Reviewed Final Anesthetic Review Family History of Problems with Anesthesia: No History of Problems with Anesthesia: No NPO: Yes ASA Class: III Final Preanesthetic Review: Meds/Allgs Chart Reviewed, Consent Obtained/Reviewed and Anes Risks/Benef Reviewed Patient Risk: Intermediate Procedure Risk: Intermediate Anesthetic Plan Anesthetic Plan: GA Disposition: Standard PACU
--- NOTE | 2021-05-05 07:29 | MHC.SHP ---
Pre-Procedural Eval Section A Date of Service: 05/05/21 Section B Chief Complaint: depression Details of Present Illness: recurrent depression diabetes Relevant Family History (Specify if Yes): No Relevant Social History: Alcohol Use (past) Present Medications: see Short Stay Collaborative assessment Medical History: Significant History (diabetes htn ) Allergies: Allergies Allergy/AdvReac Type Severity Reaction Status Date / Time NSAIDS (Non-Steroidal AdvReac Severe Shakiness Verified 04/04/21 11:52 Anti-Inflamma aspirin AdvReac Intermediate Shortness Verified 04/04/21 11:52 of Breath bupropion [From Wellbutrin] AdvReac Intermediate Agitated Verified 04/04/21 11:52 Review of Systems Sugical H&P ROS: Negative: Cardiovascular and Gastrointestinal and Yes, Specify: Respiratory (occ sob hx copd ) and Psychiatric (depressed mood ) Exam Surgical H&P Exam: Normal: Heart, Normal: Lungs (clear some crackle at base on l), Normal: Extremities and Normal: Neurological Plan Diagnosis/Plan: Unchanged (cont ect noted niddm ) I have reviewed the history and physical and performed a pertinent physical examination on my patient. No changes have occurred unless specified.
--- NOTE | 2021-05-05 07:55 | HO.ECTPROC ---
ECT Procedure Note Diagnosis/Treatment Date of Service: 05/05/21 Diagnosis: Bipolar disorder Previous ECT Date: 04/26/21 Current Treatment Number: 7 Treatment: Series Interval Clinical Notes: restart series transition to maintenance has had some inc depressive sx no acute medical concerns ECT Settings Device: THYMATRON DGx Electrode Placement: Right Unilateral Program/Pulse Width: 0.25 Energy Percent: 100 Seizure Duration By EEG (in seconds): 47 Medications Administration General Anesthetic: Etomidate (16) Muscle Relaxant: Succinylcholine (100) Ancillary Medications Miscillaneous Medications: Propofol (30) Airway Management Airway Management: Bag Mask Ventilation (used oral pharyngeal ) Treatment Recommendations No Changes Recommended: No change Pt Tolerated Procedure w/o Issue: Yes
--- NOTE | 2021-05-05 13:12 | PC.NURSE ---
Notified Negrito, Director of the OR at 06:14 that pt did not have updated medical clearance or H&P. She stated that [facility] and [facility] and documents would be faxed over today. Okay to proceed with procedure.
== END 2021-05-05 09:13 | disposition home or self-care (01) ==
PROVIDERS: PCP Physician Assistant; Visit Provider Psychiatry & Neurology Psychiatry
PROC: (CPT 90870; principal; 2021-05-05 07:30)
DX: F31.9 Bipolar disorder, unspecified (principal); Z20.822 Contact with and (suspected) exposure to COVID-19; E11.9 Type 2 diabetes mellitus without complications; Z88.8 Allergy status to other drugs, medicaments and biological substances
CPT/HCPCS: 87635; 90870; J0330; J2405

== ENCOUNTER 2021-05-08 05:55 | Day surgery (SDC) | payer OTHER, SELFPAY ==
[2021-05-08] VITALS (7 sets, daily range): BP systolic 107–151; BP diastolic 68–109; PULSE 67–79; RESP 16–20; TEMP 36.2–36.8; O2SAT 96–97; BMI 28.1
[2021-05-08 06:35] LABS: COVID-19 Test Negative (Negative); IDNOW Serial# 16C4AD1C
--- NOTE | 2021-05-08 06:50 | HO.ANESPROP2 ---
[facility] Active Problems Active Problems: All Active Problems (Updated 04/25/21 @ 11:28 by Merle Blood RN) Depression (Acute) Hyperglycemia (Acute) Bipolar 2 disorder, major depressive episode (Acute) PTSD (post-traumatic stress disorder) (Acute) Chronic post-traumatic stress disorder (PTSD) (Acute) Past Medical History Medical History Acute post-traumatic stress disorder Anxiety Chronic post-traumatic stress disorder (PTSD) COPD (chronic obstructive pulmonary disease) Depression Diabetes mellitus History of renal cell carcinoma Hypertension Hypothyroidism PTSD (post-traumatic stress disorder) Family History Family history of problems with anesthesia: No Surgical History Surgical History Hx of foot surgery History of Problems with Anesthesia: No Social History Social History Household Members: Spouse, Children and Other Household Members Other:: Mother in -law Housing: House Do you presently have visiting nurse or other home services: No Patient Tobacco Use Status: Current everyday Tobacco user Tobacco use type: Cigarette Cigarette Packs Per Day: 1 Cigarettes Per Day: 20.0 Years Smoked: 32 Second Hand Smoke Exposure: Yes Substance Use Type: Marijuana Advance Directives: No Advance Directives Information Provided: Yes service: Yes (Honorable discharge from Service as [place] [employer] [employer]) Sexual orientation: Did not discuss Meds Allergies Allergy/AdvReac Type Severity Reaction Status Date / Time NSAIDS (Non-Steroidal AdvReac Severe Shakiness Verified 04/04/21 11:52 Anti-Inflamma aspirin AdvReac Intermediate Shortness Verified 04/04/21 11:52 of Breath bupropion [From Wellbutrin] AdvReac Intermediate Agitated Verified 04/04/21 11:52 Home Medications Medication Instructions Recorded Confirmed Last Taken Type clonidine HCl 0.1 mg tablet 1 tab PO BEDTIME 04/03/21 04/25/21 04/24/21 07:00 History levothyroxine 150 mcg tablet 150 mcg PO DAILY@0600 04/03/21 04/25/21 04/25/21 07:00 History lisinopril 5 mg tablet 1 tab PO DAILY 04/03/21 04/25/21 04/25/21 07:00 History omeprazole 20 mg capsule,delayed 1 cap PO BID 04/03/21 04/25/21 04/25/21 07:00 History release prazosin 1 mg capsule 2 mg PO BEDTIME 04/03/21 04/25/21 04/24/21 21:00 History prazosin 5 mg capsule 5 mg PO BEDTIME 04/03/21 04/25/21 04/24/21 21:00 History sildenafil 100 mg tablet 1 tab PO DAILY PRN 04/03/21 04/25/21 Unknown History tamsulosin 0.4 mg capsule 2 cap PO BEDTIME 04/03/21 04/25/21 04/24/21 21:00 History Exam Exam Date and Time: May 08, 2021 0650 Pertinent Lab Results Pertinent Lab Results: Laboratory Tests 05/08/21 06:05 COVID-19 ([facility]) Negative COVID-19 Clin Com See Note Airway Mallampati Class: II (Edentulous) TM Dist: >3cm Neck ROM: Full Heart: rrr Lungs: cta Assessment and Plan Assessment Anesthesia Assessment: Anesthesia Plan Discussed and Chart Reviewed Final Anesthetic Review Family History of Problems with Anesthesia: No History of Problems with Anesthesia: No NPO: Yes ASA Class: III Final Preanesthetic Review: No Changes in Pt Med Stat, Meds/Allgs Chart Reviewed and Consent Obtained/Reviewed Patient Risk: Intermediate Procedure Risk: Intermediate Anesthetic Plan Anesthetic Plan: GA Disposition: Standard PACU
[2021-05-08 07:03] LABS: Glucose, Whole Blood 138 mg/dL (60-115)
--- NOTE | 2021-05-08 07:27 | MHC.SHP ---
Pre-Procedural Eval Section A Date of Service: 05/08/21 The patient is an INPATIENT: No Changes since office visit: Yes Patient answered all questions; No Cold of Flu in the past 2 weeks, No New Medical Problems and No Changes in Medication The History & Physical has been completed within 30 days and I have reviewed it.: Yes Section B Chief Complaint: depression Allergies: Allergies Allergy/AdvReac Type Severity Reaction Status Date / Time NSAIDS (Non-Steroidal AdvReac Severe Shakiness Verified 04/04/21 11:52 Anti-Inflamma aspirin AdvReac Intermediate Shortness Verified 04/04/21 11:52 of Breath bupropion [From Wellbutrin] AdvReac Intermediate Agitated Verified 04/04/21 11:52 Plan I have reviewed the history and physical and performed a pertinent physical examination on my patient. No changes have occurred unless specified.
--- NOTE | 2021-05-08 07:28 | HO.ECTPROC ---
ECT Procedure Note Diagnosis/Treatment Date of Service: 05/08/21 Diagnosis: Bipolar disorder Previous ECT Date: 05/05/21 Current Treatment Number: 8 Treatment: Series Interval Clinical Notes: Patient showing some improvement since last treatment denies side side effects better concerning ECT Settings Device: THYMATRON DGx Electrode Placement: Right Unilateral Program/Pulse Width: 0.25 Energy Percent: 100 Seizure Duration By EEG (in seconds): 72 Medications Administration General Anesthetic: Etomidate (16) Muscle Relaxant: Succinylcholine (100) Ancillary Medications Anti-emetics: Zofran - Pre ECT Miscillaneous Medications: Propofol Airway Management Airway Management: LMA Treatment Recommendations Pt Tolerated Procedure w/o Issue: Yes
== END 2021-05-08 09:52 | disposition home or self-care (01) ==
PROVIDERS: PCP Physician Assistant; Visit Provider Psychiatry & Neurology Psychiatry
PROC: (CPT 90870; principal; 2021-05-08 07:00)
DX: F31.81 Bipolar II disorder (principal); F60.81 Narcissistic personality disorder; F43.10 Post-traumatic stress disorder, unspecified; J44.9 Chronic obstructive pulmonary disease, unspecified; I10 Essential (primary) hypertension; E11.9 Type 2 diabetes mellitus without complications; Z79.84 Long term (current) use of oral hypoglycemic drugs; Z79.899 Other long term (current) drug therapy; Z88.8 Allergy status to other drugs, medicaments and biological substances; Z20.822 Contact with and (suspected) exposure to COVID-19
CPT/HCPCS: 82947; 87635; 90870; J0330; J2405

== ENCOUNTER 2021-05-10 05:58 | Day surgery (SDC) | payer OTHER, SELFPAY ==
[2021-05-10 06:46] LABS: COVID-19 Test Negative (Negative)
[2021-05-10 06:50] VITALS: BMI 28.1
[2021-05-10 06:52] VITALS: BP 114/71; PULSE 69; RESP 12; TEMP 36.1; O2SAT 96
--- NOTE | 2021-05-10 07:04 | HO.ANESPROP2 ---
[facility] Active Problems Active Problems: All Active Problems (Updated 05/09/21 @ 13:04 by Merle Blood RN) Depression (Acute) Hyperglycemia (Acute) Bipolar 2 disorder, major depressive episode (Acute) PTSD (post-traumatic stress disorder) (Acute) Chronic post-traumatic stress disorder (PTSD) (Acute) Past Medical History Medical History (Updated 05/09/21 @ 13:04 by Merle Blood RN) Acute post-traumatic stress disorder Anxiety Benign neoplasm of adrenal gland Chronic post-traumatic stress disorder (PTSD) COPD (chronic obstructive pulmonary disease) Depression Diabetes mellitus History of renal cell carcinoma Hyperlipidemia Hypertension Hypothyroidism PTSD (post-traumatic stress disorder) Squamous cell carcinoma of skin Family History Family history of problems with anesthesia: No Surgical History Surgical History Hx of foot surgery History of Problems with Anesthesia: No Social History Social History Household Members: Spouse, Children and Other Household Members Other:: Mother in -law Housing: House Do you presently have visiting nurse or other home services: No Patient Tobacco Use Status: Current everyday Tobacco user Tobacco use type: Cigarette Cigarette Packs Per Day: 1 Cigarettes Per Day: 20.0 Years Smoked: 32 Second Hand Smoke Exposure: Yes Substance Use Type: Marijuana Advance Directives: No Advance Directives Information Provided: Yes service: Yes (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) Sexual orientation: Did not discuss Meds Allergies Allergy/AdvReac Type Severity Reaction Status Date / Time NSAIDS (Non-Steroidal AdvReac Severe Shakiness Verified 04/04/21 11:52 Anti-Inflamma aspirin AdvReac Intermediate Shortness Verified 04/04/21 11:52 of Breath bupropion [From Wellbutrin] AdvReac Intermediate Agitated Verified 04/04/21 11:52 Active Medications: Current Medications Lactated Ringer's (Lr) 1,000 mls @ 50 mls/hr IVCONT .Q20H [facility] Home Medications Medication Instructions Recorded Confirmed Last Taken Type clonidine HCl 0.1 mg tablet 1 tab PO BEDTIME 04/03/21 04/25/21 04/24/21 07:00 History levothyroxine 150 mcg tablet 150 mcg PO DAILY@0600 04/03/21 04/25/21 04/25/21 07:00 History lisinopril 5 mg tablet 1 tab PO DAILY 04/03/21 04/25/21 04/25/21 07:00 History omeprazole 20 mg capsule,delayed 1 cap PO BID 04/03/21 04/25/21 04/25/21 07:00 History release prazosin 1 mg capsule 2 mg PO BEDTIME 04/03/21 04/25/21 04/24/21 21:00 History prazosin 5 mg capsule 5 mg PO BEDTIME 04/03/21 04/25/21 04/24/21 21:00 History sildenafil 100 mg tablet 1 tab PO DAILY PRN 04/03/21 04/25/21 Unknown History tamsulosin 0.4 mg capsule 2 cap PO BEDTIME 04/03/21 04/25/21 04/24/21 21:00 History Exam Exam Date and Time: May 10, 2021 0704 Height,Weight and Vital Signs: Height 5 ft 8 in Weight 84.01 kg Pertinent Lab Results Pertinent Lab Results: Laboratory Tests 05/10/21 06:05 COVID-19 ([facility]) Negative COVID-19 Clin Com See Note Airway Mallampati Class: II (Edwntuolous) TM Dist: >3cm Neck ROM: Full Heart: rrr Lungs: cta Assessment and Plan Assessment Anesthesia Assessment: Anesthesia Plan Discussed and Chart Reviewed Final Anesthetic Review Family History of Problems with Anesthesia: No History of Problems with Anesthesia: No NPO: Yes ASA Class: III Final Preanesthetic Review: No Changes in Pt Med Stat, Meds/Allgs Chart Reviewed and Consent Obtained/Reviewed Patient Risk: Intermediate Procedure Risk: Intermediate Anesthetic Plan Anesthetic Plan: GA Disposition: Standard PACU
--- NOTE | 2021-05-10 07:38 | MHC.SHP ---
Pre-Procedural Eval Section A Date of Service: 05/10/21 The patient is an INPATIENT: No Changes since office visit: Yes Changes in Medication and Yes Patient answered all questions; No Cold of Flu in the past 2 weeks and No New Medical Problems The History & Physical has been completed within 30 days and I have reviewed it.: Yes Section B Chief Complaint: Severe Depression Allergies: Allergies Allergy/AdvReac Type Severity Reaction Status Date / Time NSAIDS (Non-Steroidal AdvReac Severe Shakiness Verified 04/04/21 11:52 Anti-Inflamma aspirin AdvReac Intermediate Shortness Verified 04/04/21 11:52 of Breath bupropion [From Wellbutrin] AdvReac Intermediate Agitated Verified 04/04/21 11:52 Plan I have reviewed the history and physical and performed a pertinent physical examination on my patient. No changes have occurred unless specified.
--- NOTE | 2021-05-10 07:39 | HO.ECTPROC ---
ECT Procedure Note Diagnosis/Treatment Date of Service: 05/10/21 Diagnosis: Bipolar disorder Previous ECT Date: 05/08/21 Current Treatment Number: 9 Treatment: Other (continuation ) Interval Clinical Notes: pt states he is feeling better mood stable future oriented no c/o side effects ECT Settings Device: THYMATRON DGx Electrode Placement: Right Unilateral Program/Pulse Width: 0.25 Energy Percent: 15 Seizure Duration By EEG (in seconds): 45 Medications Administration General Anesthetic: Etomidate (16) Muscle Relaxant: Succinylcholine (100) Ancillary Medications Anti-emetics: Zofran - Pre ECT (4) Miscillaneous Medications: Propofol (30) Airway Management Airway Management: LMA Treatment Recommendations No Changes Recommended: No change Notes: f/u tx in 1 week Pt Tolerated Procedure w/o Issue: Yes
[2021-05-10 08:04] VITALS: BP 135/86; PULSE 87; RESP 16; TEMP 36.7; O2SAT 98
[2021-05-10 08:09] VITALS: BP 114/68; PULSE 71; RESP 18; O2SAT 97
[2021-05-10 08:14] VITALS: BP 124/86; PULSE 71; RESP 16; O2SAT 98
[2021-05-10 08:21] VITALS: BP 122/86; PULSE 71; RESP 19; TEMP 36.8; O2SAT 98
[2021-05-10 08:34] VITALS: BP 129/85; PULSE 87; RESP 16; TEMP 36.6; O2SAT 98
== END 2021-05-10 09:08 | disposition home or self-care (01) ==
PROVIDERS: PCP Physician Assistant; Visit Provider Psychiatry & Neurology Psychiatry
PROC: (CPT 90870; principal; 2021-05-10 07:00)
DX: F31.81 Bipolar II disorder (principal); F60.81 Narcissistic personality disorder; C44.729 Squamous cell carcinoma of skin of left lower limb, including hip; I10 Essential (primary) hypertension; J44.9 Chronic obstructive pulmonary disease, unspecified; E03.9 Hypothyroidism, unspecified; E11.9 Type 2 diabetes mellitus without complications; Z79.84 Long term (current) use of oral hypoglycemic drugs; Z79.899 Other long term (current) drug therapy; Z85.53 Personal history of malignant neoplasm of renal pelvis; F17.210 Nicotine dependence, cigarettes, uncomplicated; Z20.822 Contact with and (suspected) exposure to COVID-19
CPT/HCPCS: 87635; 90870; J0330; J2405

== ENCOUNTER 2021-05-16 09:15 | Outpatient (RCR) | payer OTHER, SELFPAY ==
[2021-04-25 11:17] VITALS: BMI 28.1
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
--- NOTE | 2021-04-28 09:32 | PC.NURSE ---
Patient cancelled PHP for today as he has a prescriber appointment today at 0900.
--- NOTE | 2021-05-02 16:28 | P.PNPSP_ITS ---
Subjective Subjective Date of Service: 05/02/21 Reason For Visit: MDD Interim History: I evaluated the pt this morning and upon interview he reports he is ?doing okay? and that ECT is going ?okay,? has had 6 sessions, unsure if it is helping. Sleep has been ?really good actually.? Pt reports sx of depression are still there, ?I feel very detached from everything,? endorses avolition, and says ?I dont feel like myself,? ?I still feel the same,? and ?if I didnt have to get out of bed, I wouldn?t. Im still struggling.? Denies feeling ?a whole lot different? on seroquel, discussed discontinuing daytime PRN dose to reduce polypharmacy and avoid possible sedating SE. Discussed increasing lithium ER to 600 mg QHS. Pt denies active SI, plan or intent, however continues to endorse passive SI. Recent stressors include that his mother in law had a stroke and is living with them.? Medication Compliance: Yes Side effects from medications: No Attending Groups: Yes Review of Systems Acute medical concerns: No Medical Review of Systems: unchanged Mental Status Exam Mental Status Exam Narrative: A&O. Well groomed, good hygiene, normal body habitus. Good eye contact, attentive. No Tics or Tremors. No abnormal involuntary movements. Calm, coop erative, engaged. Non-pressured speech, spontaneous with regular rate and rhythm, normal volume and prosody. No prolonged speech latency or dysarthria. Mood is ?depressed,? affect is blunted. Endorses passive SI without plan or intent. Denies active SI/SIB/HI upon inquiry. Denies A/VH or delusional thought content. Thoughts are coherent, organized. No known cognitive or memory impairment. Insight/ Judgment fair and adequate. Diagnostics Vital Signs (24Hr): BMI result Body Mass Index 28.1 Assessment & Plan Assessment & Plan (1) Bipolar 2 disorder, major depressive episode: Status: Acute Code(s): F31.81 - Bipolar II disorder (2) PTSD (post-traumatic stress disorder): Status: Acute Code(s): F43.10 - Post-traumatic stress disorder, unspecified Plan Plan: Discussed case with Dr. Ayala, who recommends pt schedule a sooner ECT appointment, as the next maintenance session is on 05/10/21.? Will increase lithium ER to 600 mg QHS, obtain labs, aware that lisinopril can increase li level and will monitor. Will discontinue daytime seroquel 25 mg PRN due to possible sedation and lack of efficacy. Will discontinue clonidine 0.1 mg QHS due to polypharm with prazosin. Pt will obtain lab work on Saturday for CMP, CBC, Li, and TSH/T4 at the [facility]. Patient educated on: medication risk/benefits and ECT Certification I certify that partial hospital treatment is medically necessary due to the symptoms and problems resulting from the patient's mental illness and the failure to treat the patient at the partial hospital level of care would likely result in the patient requiring inpatient psychiatric care which could not be prevented at a less intensive level of care. I spent minutes with the patient and/or on the patient floor today, greater than?50% of which was spent counseling/coordinating care. Discharge Plan Discharge Attending provider: Maurice Phillips Medications: Changed lithium carbonate 300 mg Tablet Extended Release 600 mg PO BEDTIME Qty: 30 0RF No Action clonidine HCl 0.1 mg tablet 1 tab PO BEDTIME 0RF prazosin 1 mg capsule 2 mg PO BEDTIME 0RF sildenafil 100 mg tablet 1 tab PO DAILY PRN (Reason: Sexual Activity) 0RF prazosin 5 mg capsule 5 mg PO BEDTIME 0RF tamsulosin 0.4 mg capsule 2 cap PO BEDTIME 0RF levothyroxine 150 mcg Tablet 150 mcg PO DAILY@0600 0RF lisinopril 5 mg tablet 1 tab PO DAILY 0RF omeprazole 20 mg capsule,delayed release(DR/EC) 1 cap PO BID 0RF quetiapine 25 mg Tablet 25 mg PO Q4H PRN (Reason: Anxiety/Restlessness) Qty: 30 0RF venlafaxine 75 mg Capsule,Extended Release 24hr 75 mg PO DAILY Qty: 30 0RF trazodone 50 mg Tablet 50 mg PO BEDTIME Qty: 30 0RF nicotine (polacrilex) 2 mg Gum 4 mg buccal Q2H PRN (Reason: Nicotine Cravings) Qty: 60 0RF nicotine 21 mg/24 hr Patch 24 Hour 21 mg transdermal DAILY PRN (Reason: smoking cessation) Qty: 21 0RF metformin 500 mg Tablet Extended Release 24 Hr 500 mg PO DAILY@1700 Qty: 30 0RF quetiapine 50 mg Tablet 50 mg PO BEDTIME Qty: 30 0RF hydroxyzine HCl 25 mg Tablet 25 mg PO QID PRN (Reason: Anxiety) Qty: 60 0RF
--- NOTE | 2021-05-11 12:27 | P.PNPSP_ITS ---
Subjective Subjective Date of Service: 05/11/21 Reason For Visit: MDD Guardianship: No Medical Problems Affecting Mental Status: No Interim History: Describes mood as it's good today . Reports ECT going well, no side effects. Denies SI, either active or passive, no safety concerns. States current meds working, no requests for change or refills. Blackey was increased approximately 1 1/2 weeks ago, has lithium level lab draw tomorrow at the [facility] in [place]. Medication Compliance: Yes Side effects from medications: No Attending Groups: Yes Review of Systems Acute medical concerns: No Medical Review of Systems: unchanged Review of Systems Review of Systems Yes all other systems are reviewed and are negative Constitutional: Reports no additional constitutional complaints Mental Status Exam Mental Status Exam Narrative: Well developed, well nourished male, in NAD. Fully attentive during encounter. No Tics or Tremors. No abnormal involuntary movements. Calm, cooperative, engaged. Mood is good affect is blunted, but appears to be improving. Denies active SI/SIB/HI upon inquiry. Denies passive SI. No safety concerns. Denies A/VH or delusional thought content. Thoughts are coherent, organized. No known cognitive or memory impairment. Insight/ Judgment fair and adequate. Patient Appearance: Well Grooomed and Appropriate Patient Orientation: Person, Place, Time and Situation Level of Consciousness: Awake, Appropriate and Alert Diagnostics Vital Signs (24Hr): BMI result Body Mass Index 28.1 Assessment & Plan Assessment & Plan (1) Bipolar 2 disorder, major depressive episode: Status: Acute Code(s): F31.81 - Bipolar II disorder Assessment and Plan: Describes mood as it's good today . Reports ECT going well, no side effects. He says he has received 3 treatments over the past week, and that he has 1 sche duled for next week. Denies SI, either active or passive, no safety concerns. He says that he feels safe at this time. States current meds working, no requests for change or refills. Blackey was increased approximately recently, has lithium level lab draw tomorrow at the [facility] in [place]. Constantine says that overall he is beginning to feel less depressed. Denies nightmares, saying that the prazosin is working well and that when he does have them it is very infrequent. Reports good sleep. Discussed alcohol, has not had any alcohol in past 15 years. Says has not been fully involved in a recovery program, but that he knows it has been helpful to him in the past. He says that he is finding [facility] group participation helpful in addressing his symptoms, and learning new coping skills. (2) Chronic post-traumatic stress disorder (PTSD): Status: Acute Code(s): F43.12 - Post-traumatic stress disorder, chronic Plan 1. Patient is scheduled to have lithium level drawn at [facility] lab in [place] tomorrow morning. 2. Continue with all medications as currently prescribed. 3. Continue with current [facility] plan of care. 4. Follow-up as per protocol. Certification I certify that partial hospital treatment is medically necessary due to the symptoms and problems resulting from the patient's mental illness and the failure to treat the patient at the partial hospital level of care would likely result in the patient requiring inpatient psychiatric care which could not be prevented at a less intensive level of care. I spent minutes with the patient and/or on the patient floor today, greater than?50% of which was spent counseling/coordinating care. Discharge Plan Discharge Attending provider: Maurice Phillips Medications: New hydroxyzine HCl 25 mg tablet 25 mg PO QID PRN (Reason: anxiety) Qty: 60 0RF Changed lithium carbonate 300 mg Tablet Extended Release 600 mg PO BEDTIME Qty: 30 0RF Discontinued hydroxyzine HCl 25 mg Tablet 25 mg PO QID PRN (Reason: Anxiety) Qty: 60 0RF No Action clonidine HCl 0.1 mg tablet 1 tab PO BEDTIME 0RF prazosin 1 mg capsule 2 mg PO BEDTIME 0RF sildenafil 100 mg tablet 1 tab PO DAILY PRN (Reason: Sexual Activity) 0RF prazosin 5 mg capsule 5 mg PO BEDTIME 0RF tamsulosin 0.4 mg capsule 2 cap PO BEDTIME 0RF levothyroxine 150 mcg Tablet 150 mcg PO DAILY@0600 0RF lisinopril 5 mg tablet 1 tab PO DAILY 0RF omeprazole 20 mg capsule,delayed release(DR/EC) 1 cap PO BID 0RF quetiapine 25 mg Tablet 25 mg PO Q4H PRN (Reason: Anxiety/Restlessness) Qty: 30 0RF venlafaxine 75 mg Capsule,Extended Release 24hr 75 mg PO DAILY Qty: 30 0RF trazodone 50 mg Tablet 50 mg PO BEDTIME Qty: 30 0RF nicotine (polacrilex) 2 mg Gum 4 mg buccal Q2H PRN (Reason: Nicotine Cravings) Qty: 60 0RF nicotine 21 mg/24 hr Patch 24 Hour 21 mg transdermal DAILY PRN (Reason: smoking cessation) Qty: 21 0RF metformin 500 mg Tablet Extended Release 24 Hr 500 mg PO DAILY@1700 Qty: 30 0RF quetiapine 50 mg Tablet 50 mg PO BEDTIME Qty: 30 0RF Telehealth Telehealth Location of provider rendering services: practice address Location of patient: address on file Patient Identification confirmed using: Name, : Yes Telehealth method: video Patient verbally consented to treatment: Yes Patient verbally consented to billing insurance company: Yes Patient informed of any privacy concerns related to visit: Yes Time spent with patient (mins): 20
--- NOTE | 2021-05-16 15:00 | PC.NURSE ---
Discharge Note: Patient discharged from [facility] today on 05/16/2021. Patient met with Mariela Carson NP re: discharge medications. Routine discharge, patient states ready for discharge, denies SI. Discharge paper work faxed to PCP CECILY Barbour and Renetta Madrigal NP. Attempted to get results of last Diff[place] level drawn at [facility] lab from PCP's office. Waiting return call from PCP staff. Call to patient, message left that we had not yet received Difficult [place] results. Patient will be following up with PCP and Psychopharmacology prescriber both services through [facility] and both providers will have access to all lab results including Difficult [place] level.
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
--- NOTE | 2021-05-16 22:42 | HO.PHPPROGNO ---
Subjective Subjective Date of Service: 05/16/21 Reason For Visit: MDD Interim History: Patient seen and discussed with team. Patient evaluated today and upon interview he reports his depression has been better and that having three ECT sessions in a row over a week period helped a lot. Has next ECT session this saturday. Says the ECT, increase in lithium, and being in the [facility] certainly helped. Sleep is good. Denies SE on lithium. Asked RN to request lab work from [place] to review Li level, obtained lab work on 05/12/21. Denies SE on medications. Says he has been working in his DBT workbook.? Medication Compliance: Yes Side effects from medications: No Attending Groups: Yes Review of Systems Acute medical concerns: No Medical Review of Systems: unchanged Mental Status Exam Mental Status Exam Narrative: Well developed, well nourished male, in NAD.? Fully attentive during encounter. No Tics or Tremors. No abnormal involuntary movements. Calm, cooperative, engaged.? Mood is good ? affect is euthymic.? Denies active SI/SIB/HI upon inquiry. Denies passive SI. No safety concerns. Denies A/VH or delusional thought content. Thoughts are coherent, organized. No known cognitive or memory impairment. Insight/ Judgment fair and adequate. Patient Appearance:?Well Groomed and Appropriate Patient Orientation:?Person, Place, Time and Situation Level of Consciousness:?Awake, Appropriate and Alert Diagnostics Vital Signs (24Hr): BMI result Body Mass Index 28.1 Assessment & Plan Assessment & Plan (1) Bipolar 2 disorder, major depressive episode: Status: Acute Code(s): F31.81 - Bipolar II disorder (2) PTSD (post-traumatic stress disorder): Status: Acute Code(s): F43.10 - Post-traumatic stress disorder, unspecified Plan reports benefit on ECT, no side effects.? Denies SI, either active or passive,? no safety concerns.? He says that he feels safe at this time. States current meds are working, no requests for change or refills. Pt is stable. Plan 1. Obtain labs from [facility] for Li level 2. Continue with all? medications as currently prescribed. 3. Continue with current [facility] plan of care. 4. Follow-up as per protocol. Patient educated on: medication risk/benefits Certification I certify that partial hospital treatment is medically necessary due to the symptoms and problems resulting from the patient's mental illness and the failure to treat the patient at the partial hospital level of care would likely result in the patient requiring inpatient psychiatric care which could not be prevented at a less intensive level of care. I spent minutes with the patient and/or on the patient floor today, greater than?50% of which was spent counseling/coordinating care. Discharge Plan Discharge Attending provider: Maurice Phillips Medications: New hydroxyzine HCl 25 mg tablet 25 mg PO QID PRN (Reason: anxiety) Qty: 60 0RF Changed lithium carbonate 300 mg Tablet Extended Release 600 mg PO BEDTIME Qty: 30 0RF Discontinued hydroxyzine HCl 25 mg Tablet 25 mg PO QID PRN (Reason: Anxiety) Qty: 60 0RF No Action clonidine HCl 0.1 mg tablet 1 tab PO BEDTIME 0RF prazosin 1 mg capsule 2 mg PO BEDTIME 0RF sildenafil 100 mg tablet 1 tab PO DAILY PRN (Reason: Sexual Activity) 0RF prazosin 5 mg capsule 5 mg PO BEDTIME 0RF tamsulosin 0.4 mg capsule 2 cap PO BEDTIME 0RF levothyroxine 150 mcg Tablet 150 mcg PO DAILY@0600 0RF lisinopril 5 mg tablet 1 tab PO DAILY 0RF omeprazole 20 mg capsule,delayed release(DR/EC) 1 cap PO BID 0RF quetiapine 25 mg Tablet 25 mg PO Q4H PRN (Reason: Anxiety/Restlessness) Qty: 30 0RF venlafaxine 75 mg Capsule,Extended Release 24hr 75 mg PO DAILY Qty: 30 0RF trazodone 50 mg Tablet 50 mg PO BEDTIME Qty: 30 0RF nicotine (polacrilex) 2 mg Gum 4 mg buccal Q2H PRN (Reason: Nicotine Cravings) Qty: 60 0RF nicotine 21 mg/24 hr Patch 24 Hour 21 mg transdermal DAILY PRN (Reason: smoking cessation) Qty: 21 0RF metformin 500 mg Tablet Extended Release 24 Hr 500 mg PO DAILY@1700 Qty: 30 0RF quetiapine 50 mg Tablet 50 mg PO BEDTIME Qty: 30 0RF Stand Alone Forms: Patient Portal Discharge page
--- NOTE | 2021-05-18 15:21 | PC.NURSE ---
I left a message about clients discharge with his therapist Kasia Rehman [phone]
== END 2021-05-18 23:59 | disposition home or self-care (01) ==
LOC: HO.PHPA 09:15
PROVIDERS: Visit Provider Psychiatry & Neurology Psychiatry
DX: F43.12 Post-traumatic stress disorder, chronic (principal); F31.81 Bipolar II disorder; Z79.899 Other long term (current) drug therapy; Z91.51 Personal history of suicidal behavior
CPT/HCPCS: 90791; 90853

== ENCOUNTER 2021-05-22 05:56 | Day surgery (SDC) | payer OTHER, SELFPAY ==
[2021-05-22] VITALS (7 sets, daily range): BP systolic 119–159; BP diastolic 74–99; PULSE 58–74; RESP 16–19; TEMP 36.2–36.3; O2SAT 95–100; BMI 28.1
[2021-05-22 06:37] LABS: COVID-19 Test Negative (Negative)
--- NOTE | 2021-05-22 07:30 | HO.ANESPROP2 ---
[facility] Active Problems Active Problems: All Active Problems (Updated 05/09/21 @ 13:04 by Merle Blood RN) Depression (Acute) Hyperglycemia (Acute) Bipolar 2 disorder, major depressive episode (Acute) PTSD (post-traumatic stress disorder) (Acute) Chronic post-traumatic stress disorder (PTSD) (Acute) Past Medical History Medical History (Updated 05/09/21 @ 13:04 by Merle Blood RN) Acute post-traumatic stress disorder Anxiety Benign neoplasm of adrenal gland Chronic post-traumatic stress disorder (PTSD) COPD (chronic obstructive pulmonary disease) Depression Diabetes mellitus History of renal cell carcinoma Hyperlipidemia Hypertension Hypothyroidism PTSD (post-traumatic stress disorder) Squamous cell carcinoma of skin Functional capacity: independent ambulation Family History Family history of problems with anesthesia: No Surgical History Surgical History Hx of foot surgery History of Problems with Anesthesia: No Social History Social History Household Members: Spouse, Children and Other Household Members Other:: Mother in -law Housing: House Do you presently have visiting nurse or other home services: No Patient Tobacco Use Status: Current everyday Tobacco user Tobacco use type: Cigarette Cigarette Packs Per Day: 1 Cigarettes Per Day: 20.0 Years Smoked: 32 Second Hand Smoke Exposure: Yes Substance Use Type: Marijuana Advance Directives: No Advance Directives Information Provided: Yes service: Yes (Honorable discharge from Service as [employer]) Sexual orientation: Did not discuss Meds Allergies Allergy/AdvReac Type Severity Reaction Status Date / Time NSAIDS (Non-Steroidal AdvReac Severe Shakiness Verified 04/04/21 11:52 Anti-Inflamma aspirin AdvReac Intermediate Shortness Verified 04/04/21 11:52 of Breath bupropion [From Wellbutrin] AdvReac Intermediate Agitated Verified 04/04/21 11:52 Home Medications Medication Instructions Recorded Confirmed Last Taken Type clonidine HCl 0.1 mg tablet 1 tab PO BEDTIME 04/03/21 04/25/21 04/24/21 07:00 History levothyroxine 150 mcg tablet 150 mcg PO DAILY@0600 04/03/21 04/25/21 04/25/21 07:00 History lisinopril 5 mg tablet 1 tab PO DAILY 04/03/21 04/25/21 04/25/21 07:00 History omeprazole 20 mg capsule,delayed 1 cap PO BID 04/03/21 04/25/21 04/25/21 07:00 History release prazosin 1 mg capsule 2 mg PO BEDTIME 04/03/21 04/25/21 04/24/21 21:00 History prazosin 5 mg capsule 5 mg PO BEDTIME 04/03/21 04/25/21 04/24/21 21:00 History sildenafil 100 mg tablet 1 tab PO DAILY PRN 04/03/21 04/25/21 Unknown History tamsulosin 0.4 mg capsule 2 cap PO BEDTIME 04/03/21 04/25/21 04/24/21 21:00 History Exam Exam Date and Time: May 22, 2021 0730 Height,Weight and Vital Signs: Height 5 ft 8 in Weight 83.915 kg Last Vital Signs Temp 97.1 F 05/22/21 06:54 Pulse 58 05/22/21 06:54 Resp 18 05/22/21 06:54 BP 119/74 05/22/21 06:54 Pertinent Lab Results Pertinent Lab Results: Laboratory Tests 05/22/21 06:11 COVID-19 ([facility]) Negative COVID-19 Clin Com See Note Airway Mallampati Class: III TM Dist: >3cm Neck ROM: Full Heart: RRR Lungs: CTA Assessment and Plan Final Anesthetic Review Family History of Problems with Anesthesia: No History of Problems with Anesthesia: No ASA Class: III Final Preanesthetic Review: No Changes in Pt Med Stat, Meds/Allgs Chart Reviewed, Consent Obtained/Reviewed and Anes Risks/Benef Reviewed Patient Risk: Low Procedure Risk: Low Anesthetic Plan Anesthetic Plan: GA Disposition: Standard PACU
--- NOTE | 2021-05-22 07:34 | MHC.SHP ---
Pre-Procedural Eval Section A Date of Service: 05/22/21 Changes since office visit: Yes Patient answered all questions; No Cold of Flu in the past 2 weeks, No New Medical Problems and No Changes in Medication The History & Physical has been completed within 30 days and I have reviewed it.: Yes Section B Chief Complaint: depression Allergies: Allergies Allergy/AdvReac Type Severity Reaction Status Date / Time NSAIDS (Non-Steroidal AdvReac Severe Shakiness Verified 04/04/21 11:52 Anti-Inflamma aspirin AdvReac Intermediate Shortness Verified 04/04/21 11:52 of Breath bupropion [From Wellbutrin] AdvReac Intermediate Agitated Verified 04/04/21 11:52 Plan I have reviewed the history and physical and performed a pertinent physical examination on my patient. No changes have occurred unless specified.
--- NOTE | 2021-05-22 07:51 | HO.ECTPROC ---
ECT Procedure Note Diagnosis/Treatment Date of Service: 05/22/21 Diagnosis: Bipolar disorder Previous ECT Date: 05/10/21 Current Treatment Number: 10 Treatment: Maintenance Interval Clinical Notes: pt noticed some decrease mood past few days feels ect helpful no c/o side effects ECT Settings Device: THYMATRON DGx Electrode Placement: Right Unilateral Program/Pulse Width: 0.25 Energy Percent: 20 Seizure Duration By EEG (in seconds): 67 Medications Administration General Anesthetic: Etomidate (16) Muscle Relaxant: Succinylcholine (100) Ancillary Medications Anti-emetics: Zofran - Pre ECT Miscillaneous Medications: Propofol Airway Management Airway Management: LMA Treatment Recommendations No Changes Recommended: No change Notes: f/u tx 1 week consider latuda vyraylar transient bradycardia anesthesia suggests glyco pre tx Pt Tolerated Procedure w/o Issue: Yes
--- NOTE | 2021-05-22 09:56 | HO.POSTANES ---
Post Anesthesia Evaluation Post Anesthesia Evaluation Vital Signs: Vital Signs Temp Pulse Resp BP Pulse Ox 05/22/21 08:46 97.3 F 63 18 126/88 95 05/22/21 08:32 97.3 F 62 19 131/82 95 05/22/21 08:17 97.3 F 63 17 126/83 97 05/22/21 08:12 62 17 130/89 100 05/22/21 08:07 64 19 124/82 100 05/22/21 08:02 97.4 F 74 16 159/99 H 100 05/22/21 06:54 97.1 F 58 18 119/74 Anesthesia: General Mental Status: Awake Pain Control: Satisfactory Nausea/Vomiting: None Hydration: Adequate Anesthesia-Related Issues: No Anes. Related Issues
== END 2021-05-22 09:05 | disposition home or self-care (01) ==
PROVIDERS: PCP Physician Assistant; Visit Provider Psychiatry & Neurology Psychiatry
PROC: (CPT 90870; principal; 2021-05-22 15:40)
DX: F31.9 Bipolar disorder, unspecified (principal); F43.10 Post-traumatic stress disorder, unspecified; J44.9 Chronic obstructive pulmonary disease, unspecified; E78.5 Hyperlipidemia, unspecified; E03.9 Hypothyroidism, unspecified; E11.9 Type 2 diabetes mellitus without complications; C44.729 Squamous cell carcinoma of skin of left lower limb, including hip; Z85.528 Personal history of other malignant neoplasm of kidney; F10.21 Alcohol dependence, in remission; Z79.84 Long term (current) use of oral hypoglycemic drugs; Z79.899 Other long term (current) drug therapy; Z20.822 Contact with and (suspected) exposure to COVID-19; F17.210 Nicotine dependence, cigarettes, uncomplicated
CPT/HCPCS: 87635; 90870; J0330; J2405

== ENCOUNTER 2021-05-29 06:08 | Day surgery (SDC) | payer OTHER, SELFPAY ==
[2021-05-29 06:37] LABS: COVID-19 Test Negative (Negative)
--- NOTE | 2021-05-29 06:54 | HO.ANESPROP2 ---
[facility] Active Problems Active Problems: All Active Problems (Updated 05/09/21 @ 13:04 by Merle Blood RN) Depression (Acute) Hyperglycemia (Acute) Bipolar 2 disorder, major depressive episode (Acute) PTSD (post-traumatic stress disorder) (Acute) Chronic post-traumatic stress disorder (PTSD) (Acute) Past Medical History Medical History (Updated 05/09/21 @ 13:04 by Merle Blood RN) Acute post-traumatic stress disorder Anxiety Benign neoplasm of adrenal gland Chronic post-traumatic stress disorder (PTSD) COPD (chronic obstructive pulmonary disease) Depression Diabetes mellitus History of renal cell carcinoma Hyperlipidemia Hypertension Hypothyroidism PTSD (post-traumatic stress disorder) Squamous cell carcinoma of skin Family History Family history of problems with anesthesia: No Surgical History Surgical History Hx of foot surgery History of Problems with Anesthesia: No Social History Social History Household Members: Spouse, Children and Other Household Members Other:: Mother in -law Housing: House Do you presently have visiting nurse or other home services: No Patient Tobacco Use Status: Current everyday Tobacco user Tobacco use type: Cigarette Cigarette Packs Per Day: 1 Cigarettes Per Day: 20.0 Years Smoked: 32 Second Hand Smoke Exposure: Yes Substance Use Type: Marijuana Advance Directives: No Advance Directives Information Provided: Yes service: Yes (Honorable discharge from Service as [employer]) Sexual orientation: Did not discuss Meds Allergies Allergy/AdvReac Type Severity Reaction Status Date / Time NSAIDS (Non-Steroidal AdvReac Severe Shakiness Verified 04/04/21 11:52 Anti-Inflamma aspirin AdvReac Intermediate Shortness Verified 04/04/21 11:52 of Breath bupropion [From Wellbutrin] AdvReac Intermediate Agitated Verified 04/04/21 11:52 Home Medications Medication Instructions Recorded Confirmed Last Taken Type clonidine HCl 0.1 mg tablet 1 tab PO BEDTIME 04/03/21 04/25/21 04/24/21 07:00 History levothyroxine 150 mcg tablet 150 mcg PO DAILY@0600 04/03/21 04/25/21 04/25/21 07:00 History lisinopril 5 mg tablet 1 tab PO DAILY 04/03/21 04/25/21 04/25/21 07:00 History omeprazole 20 mg capsule,delayed 1 cap PO BID 04/03/21 04/25/21 04/25/21 07:00 History release prazosin 1 mg capsule 2 mg PO BEDTIME 04/03/21 04/25/21 04/24/21 21:00 History prazosin 5 mg capsule 5 mg PO BEDTIME 04/03/21 04/25/21 04/24/21 21:00 History sildenafil 100 mg tablet 1 tab PO DAILY PRN 04/03/21 04/25/21 Unknown History tamsulosin 0.4 mg capsule 2 cap PO BEDTIME 04/03/21 04/25/21 04/24/21 21:00 History Exam Exam Date and Time: May 29, 2021 0654 Pertinent Lab Results Pertinent Lab Results: Laboratory Tests 05/29/21 06:10 COVID-19 ([facility]) Negative COVID-19 Clin Com See Note Airway Mallampati Class: II TM Dist: >3cm Neck ROM: Full Denture: Upper and Lower Heart: rrr Lungs: cta Assessment and Plan Assessment Anesthesia Assessment: Anesthesia Plan Discussed and Chart Reviewed Final Anesthetic Review Family History of Problems with Anesthesia: No History of Problems with Anesthesia: No NPO: Yes ASA Class: III Final Preanesthetic Review: No Changes in Pt Med Stat, Meds/Allgs Chart Reviewed and Consent Obtained/Reviewed Patient Risk: Intermediate Procedure Risk: Intermediate Anesthetic Plan Anesthetic Plan: GA Disposition: Standard PACU
[2021-05-29 06:56] VITALS: BP 101/68; PULSE 72; RESP 18; TEMP 36.4; O2SAT 95; BMI 28.1
--- NOTE | 2021-05-29 07:32 | P.HPSUR_ITS ---
Pre-Procedural Eval Section A Date of Service: 05/29/21 The patient is an INPATIENT: No Changes since office visit: Yes Cold of Flu in the past 2 weeks, Yes New Medical Problems, Yes Changes in Medication and Yes Patient answered all questions The History & Physical has been completed within 30 days and I have reviewed it.: Yes Section B Chief Complaint: depression Relevant Family History (Specify if Yes): No Relevant Social History: None Present Medications: None Medical History: No relevant PMH Allergies: Allergies Allergy/AdvReac Type Severity Reaction Status Date / Time NSAIDS (Non-Steroidal AdvReac Severe Shakiness Verified 04/04/21 11:52 Anti-Inflamma aspirin AdvReac Intermediate Shortness Verified 04/04/21 11:52 of Breath bupropion [From Wellbutrin] AdvReac Intermediate Agitated Verified 04/04/21 11:52 Review of Systems Sugical H&P ROS: Negative: Constitution, Cardiovascular, Respiratory, Neurological, Psychiatric, Hem-Onc, Allergic/Immunologic, Gastrointestinal, Genitourinary, Musculoskeletal, Integumentary, Endocrine and Eyes/Ears/Nose/Throat Exam Surgical H&P Exam: Normal: HEENT, Normal: Heart, Normal: Lungs, Normal: Ext remities, Normal: Abdomen, Normal: Skin and Normal: Neurological Plan Diagnosis/Plan: Unchanged I have reviewed the history and physical and performed a pertinent physical examination on my patient. No changes have occurred unless specified.
--- NOTE | 2021-05-29 07:35 | HO.ECTPROC ---
ECT Procedure Note Diagnosis/Treatment Date of Service: 05/29/21 Diagnosis: Major Depressive Disorder Previous ECT Date: 05/22/21 Current Treatment Number: 11 Treatment: Maintenance Interval Clinical Notes: The patient reported improvement of depression since his last ECT. No side effects. ECT Settings Device: THYMATRON DGx Electrode Placement: Right Unilateral Program/Pulse Width: 0.25 Energy Percent: 20 Seizure Duration By EEG (in seconds): 41 By Motor Observation (in seconds): 37 Medications Administration General Anesthetic: Etomidate (14) Muscle Relaxant: Succinylcholine (100) Ancillary Medications Analgesics: Torodol - Pre ECT Anti-emetics: Zofran - Pre ECT Miscillaneous Medications: Propofol Airway Management Airway Management: LMA Treatment Recommendations No Changes Recommended: No change Pt Tolerated Procedure w/o Issue: Yes
[2021-05-29 08:10] VITALS: BP 130/89; PULSE 99; RESP 20; TEMP 36.6; O2SAT 96
[2021-05-29 08:15] VITALS: BP 99/63; PULSE 85; RESP 20; O2SAT 96
[2021-05-29 08:20] VITALS: BP 105/63; PULSE 78; RESP 20; O2SAT 96
[2021-05-29 08:25] VITALS: BP 117/77; PULSE 80; RESP 20; O2SAT 95
[2021-05-29 08:40] VITALS: BP 110/77; PULSE 74; RESP 20; TEMP 36.6; O2SAT 96
== END 2021-05-29 09:06 | disposition home or self-care (01) ==
PROVIDERS: PCP Physician Assistant; Visit Provider Psychiatry & Neurology Psychiatry
PROC: (CPT 90870; principal; 2021-05-29 08:00)
DX: F31.81 Bipolar II disorder (principal); F43.12 Post-traumatic stress disorder, chronic; I10 Essential (primary) hypertension; J44.9 Chronic obstructive pulmonary disease, unspecified; R73.9 Hyperglycemia, unspecified; E03.9 Hypothyroidism, unspecified; Z79.899 Other long term (current) drug therapy; Z88.8 Allergy status to other drugs, medicaments and biological substances; F17.210 Nicotine dependence, cigarettes, uncomplicated; F12.90 Cannabis use, unspecified, uncomplicated; Z20.822 Contact with and (suspected) exposure to COVID-19
CPT/HCPCS: 87635; 90870; J0330; J2405

== ENCOUNTER 2021-06-12 05:59 | Day surgery (SDC) | payer OTHER, SELFPAY ==
[2021-06-12] VITALS (7 sets, daily range): BP systolic 102–130; BP diastolic 52–92; PULSE 61–81; RESP 15–19; TEMP 36.1–36.9; O2SAT 94–96; BMI 22.8
[2021-06-12 06:46] LABS: COVID-19 Test Negative (Negative)
--- NOTE | 2021-06-12 06:55 | P.CONAN_ITS ---
[facility] Active Problems Active Problems: All Active Problems (Updated 05/09/21 @ 13:04 by Merle Blood RN) Depression (Acute) Hyperglycemia (Acute) Bipolar 2 disorder, major depressive episode (Acute) PTSD (post-traumatic stress disorder) (Acute) Chronic post-traumatic stress disorder (PTSD) (Acute) Past Medical History Medical History (Updated 05/09/21 @ 13:04 by Merle Blood RN) Acute post-traumatic stress disorder Anxiety Benign neoplasm of adrenal gland Chronic post-traumatic stress disorder (PTSD) COPD (chronic obstructive pulmonary disease) Depression Diabetes mellitus History of renal cell carcinoma Hyperlipidemia Hypertension Hypothyroidism PTSD (post-traumatic stress disorder) Squamous cell carcinoma of skin Family History Family history of problems with anesthesia: No Surgical History Surgical History Hx of foot surgery History of Problems with Anesthesia: No Social History Social History Household Members: Spouse, Children and Other Household Members Other:: Mother in -law Housing: House Do you presently have visiting nurse or other home services: No Patient Tobacco Use Status: Current everyday Tobacco user Tobacco use type: Cigarette Cigarette Packs Per Day: 1 Cigarettes Per Day: 20.0 Years Smoked: 32 Second Hand Smoke Exposure: Yes Substance Use Type: Marijuana Advance Directives: No Advance Directives Information Provided: Yes 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) Sexual orientation: Did not discuss Meds Allergies Allergy/AdvReac Type Severity Reaction Status Date / Time NSAIDS (Non-Steroidal AdvReac Severe Shakiness Verified 04/04/21 11:52 Anti-Inflamma aspirin AdvReac Intermediate Shortness Verified 04/04/21 11:52 of Breath bupropion [From Wellbutrin] AdvReac Intermediate Agitated Verified 04/04/21 11:52 Active Medications: Current Medications Lactated Ringer's (Lr) 1,000 mls @ 50 mls/hr IVCONT .Q20H [facility] Home Medications Medication Instructions Recorded Confirmed Last Taken Type clonidine HCl 0.1 mg tablet 1 tab PO BEDTIME 04/03/21 04/25/21 04/24/21 07:00 History levothyroxine 150 mcg tablet 150 mcg PO DAILY@0600 04/03/21 04/25/21 04/25/21 07:00 History lisinopril 5 mg tablet 1 tab PO DAILY 04/03/21 04/25/21 04/25/21 07:00 History omeprazole 20 mg capsule,delayed 1 cap PO BID 04/03/21 04/25/21 04/25/21 07:00 History release prazosin 1 mg capsule 2 mg PO BEDTIME 04/03/21 04/25/21 04/24/21 21:00 History prazosin 5 mg capsule 5 mg PO BEDTIME 04/03/21 04/25/21 04/24/21 21:00 History sildenafil 100 mg tablet 1 tab PO DAILY PRN 04/03/21 04/25/21 Unknown History tamsulosin 0.4 mg capsule 2 cap PO BEDTIME 04/03/21 04/25/21 04/24/21 21:00 History Exam Exam Date and Time: June 12, 2021 0655 Height,Weight and Vital Signs: Height 5 ft 8 in Weight 68.039 kg Last Vital Signs Temp 97 F 06/12/21 06:40 Pulse 61 06/12/21 06:40 Resp 18 06/12/21 06:40 BP 102/70 06/12/21 06:40 Pulse Ox 96 06/12/21 06:40 Pertinent Lab Results Pertinent Lab Results: Laboratory Tests 06/12/21 06:17 COVID-19 ([facility]) Negative COVID-19 Clin Com See Note Airway Mallampati Class: II (Edentulous) TM Dist: >3cm Neck ROM: Full Heart: rrr Lungs: cta Assessment and Plan Assessment Anesthesia Assessment: Anesthesia Plan Discussed and Chart Reviewed Final Anesthetic Review Family History of Problems with Anesthesia: No History of Problems with Anesthesia: No NPO: Yes ASA Class: III Final Preanesthetic Review: No Changes in Pt Med Stat, Meds/Allgs Chart Reviewed and Consent Obtained/Reviewed Patient Risk: Intermediate Procedure Risk: Intermediate Anesthetic Plan Anesthetic Plan: GA Disposition: Standard PACU
--- NOTE | 2021-06-12 08:15 | MHC.SHP ---
Pre-Procedural Eval Section A Date of Service: 06/12/21 The patient is an INPATIENT: No Changes since office visit: Yes Changes in Medication and Yes Patient answered all questions; No Cold of Flu in the past 2 weeks and No New Medical Problems Section B Chief Complaint: depression Details of Present Illness: recurrent bipolar depression now on latuda seroquel discontinued Relevant Social History: Alcohol Use (sober now) Present Medications: see Short Stay Collaborative assessment Medical History: Significant History (diabetes htn ) History of Previous Operations: No relevant previous surgery (ect) Allergies: Allergies Allergy/AdvReac Type Severity Reaction Status Date / Time NSAIDS (Non-Steroidal AdvReac Severe Shakiness Verified 04/04/21 11:52 Anti-Inflamma aspirin AdvReac Intermediate Shortness Verified 04/04/21 11:52 of Breath bupropion [From Wellbutrin] AdvReac Intermediate Agitated Verified 04/04/21 11:52 Review of Systems Sugical H&P ROS: Negative: Constitution, Cardiovascular and Respiratory Exam Surgical H&P Exam: Normal: Heart, Normal: Lungs and Normal: Neurological Plan Diagnosis/Plan: Unchanged I have reviewed the history and physical and performed a pertinent physical examination on my patient. No changes have occurred unless specified.
--- NOTE | 2021-06-12 08:26 | HO.ECTPROC ---
ECT Procedure Note Diagnosis/Treatment Date of Service: 06/12/21 Diagnosis: Bipolar disorder Previous ECT Date: 05/29/21 Current Treatment Number: 12 Treatment: Series Interval Clinical Notes: pt has been feeling generally well more stable feels ect helpful no significant cognitive complaints ECT Settings Device: THYMATRON DGx Electrode Placement: Right Unilateral Program/Pulse Width: 0.25 Energy Percent: 20 Seizure Duration By EEG (in seconds): 28 By Motor Observation (in seconds): 19 Medications Administration General Anesthetic: Etomidate (16) Muscle Relaxant: Succinylcholine (100) Ancillary Medications Anti-emetics: Zofran - Pre ECT Miscillaneous Medications: Propofol (30 post) Airway Management Airway Management: Bag Mask Ventilation (oral pharyngeal airway ) Treatment Recommendations Energy Percent: 40 Pt Tolerated Procedure w/o Issue: Yes
== END 2021-06-12 09:30 | disposition home or self-care (01) ==
PROVIDERS: PCP Physician Assistant; Visit Provider Psychiatry & Neurology Psychiatry
PROC: (CPT 90870; principal; 2021-06-12 07:00)
DX: F31.30 Bipolar disorder, current episode depressed, mild or moderate severity, unspecified (principal); Z79.899 Other long term (current) drug therapy; Z20.822 Contact with and (suspected) exposure to COVID-19
CPT/HCPCS: 87635; 90870; J0330; J2405

== ENCOUNTER 2021-07-03 06:04 | Day surgery (SDC) | payer OTHER, SELFPAY ==
[2021-07-03] VITALS (7 sets, daily range): BP systolic 115–137; BP diastolic 62–88; PULSE 65–82; RESP 16–69; TEMP 36.3–37; O2SAT 95–96; BMI 27.3
--- NOTE | 2021-07-03 06:47 | HO.ANESPROP2 ---
[facility] Active Problems Active Problems: All Active Problems (Updated 05/09/21 @ 13:04 by Merle Blood RN) Depression (Acute) Hyperglycemia (Acute) Bipolar 2 disorder, major depressive episode (Acute) PTSD (post-traumatic stress disorder) (Acute) Chronic post-traumatic stress disorder (PTSD) (Acute) Past Medical History Medical History (Updated 05/09/21 @ 13:04 by Merle Blood RN) Acute post-traumatic stress disorder Anxiety Benign neoplasm of adrenal gland Chronic post-traumatic stress disorder (PTSD) COPD (chronic obstructive pulmonary disease) Depression Diabetes mellitus History of renal cell carcinoma Hyperlipidemia Hypertension Hypothyroidism PTSD (post-traumatic stress disorder) Squamous cell carcinoma of skin Family History Family history of problems with anesthesia: No Surgical History Surgical History Hx of foot surgery History of Problems with Anesthesia: No Social History Social History Household Members: Spouse, Children and Other Household Members Other:: Mother in -law Housing: House Do you presently have visiting nurse or other home services: No Patient Tobacco Use Status: Current everyday Tobacco user Tobacco use type: Cigarette Cigarette Packs Per Day: 1 Cigarettes Per Day: 20.0 Years Smoked: 32 Second Hand Smoke Exposure: Yes Substance Use Type: Marijuana Advance Directives: No Advance Directives Information Provided: Yes service: Yes (Honorable discharge from Service as [employer]) Sexual orientation: Did not discuss Meds Allergies Allergy/AdvReac Type Severity Reaction Status Date / Time NSAIDS (Non-Steroidal AdvReac Severe Shakiness Verified 04/04/21 11:52 Anti-Inflamma aspirin AdvReac Intermediate Shortness Verified 04/04/21 11:52 of Breath bupropion [From Wellbutrin] AdvReac Intermediate Agitated Verified 04/04/21 11:52 Home Medications Medication Instructions Recorded Confirmed Last Taken Type clonidine HCl 0.1 mg tablet 1 tab PO BEDTIME 04/03/21 04/25/21 04/24/21 07:00 History levothyroxine 150 mcg tablet 150 mcg PO DAILY@0600 04/03/21 04/25/21 04/25/21 07:00 History lisinopril 5 mg tablet 1 tab PO DAILY 04/03/21 04/25/21 04/25/21 07:00 History omeprazole 20 mg capsule,delayed 1 cap PO BID 04/03/21 04/25/21 04/25/21 07:00 History release prazosin 1 mg capsule 2 mg PO BEDTIME 04/03/21 04/25/21 04/24/21 21:00 History prazosin 5 mg capsule 5 mg PO BEDTIME 04/03/21 04/25/21 04/24/21 21:00 History sildenafil 100 mg tablet 1 tab PO DAILY PRN 04/03/21 04/25/21 Unknown History tamsulosin 0.4 mg capsule 2 cap PO BEDTIME 04/03/21 04/25/21 04/24/21 21:00 History Exam Exam Date and Time: July 03, 2021 0647 Airway Mallampati Class: II TM Dist: >3cm Neck ROM: Full Heart: rrr Lungs: cta Assessment and Plan Assessment Anesthesia Assessment: Anesthesia Plan Discussed and Chart Reviewed Final Anesthetic Review Family History of Problems with Anesthesia: No History of Problems with Anesthesia: No NPO: Yes ASA Class: III Final Preanesthetic Review: No Changes in Pt Med Stat, Meds/Allgs Chart Reviewed and Consent Obtained/Reviewed Patient Risk: Intermediate Procedure Risk: Intermediate Anesthetic Plan Anesthetic Plan: GA Disposition: Standard PACU
[2021-07-03 06:55] LABS: COVID-19 Test Negative (Negative); IDNOW Serial# 08D9AD1C
--- NOTE | 2021-07-03 07:32 | MHC.SHP ---
Pre-Procedural Eval Section A Date of Service: 07/03/21 Changes since office visit: Yes Changes in Medication and Yes Patient answered all questions; No Cold of Flu in the past 2 weeks and No New Medical Problems The History & Physical has been completed within 30 days and I have reviewed it.: Yes Section B Chief Complaint: depression Details of Present Illness: recurrent depression bipolar sub abuse Relevant Social History: Alcohol Use (past) Present Medications: see Short Stay Collaborative assessment Medical History: Significant History (htn diabetes) Allergies: Allergies Allergy/AdvReac Type Severity Reaction Status Date / Time NSAIDS (Non-Steroidal AdvReac Severe Shakiness Verified 04/04/21 11:52 Anti-Inflamma aspirin AdvReac Intermediate Shortness Verified 04/04/21 11:52 of Breath bupropion [From Wellbutrin] AdvReac Intermediate Agitated Verified 04/04/21 11:52 Review of Systems Sugical H&P ROS: Negative: Constitution, Cardiovascular and Respiratory Exam Surgical H&P Exam: Normal: Heart, Normal: Lungs and Normal: Neurological Plan Diagnosis/Plan: Unchanged I have reviewed the history and physical and performed a pertinent physical examination on my patient. No changes have occurred unless specified.
--- NOTE | 2021-07-03 07:42 | HO.ECTPROC ---
ECT Procedure Note Diagnosis/Treatment Date of Service: 07/03/21 Diagnosis: Bipolar disorder Previous ECT Date: 06/12/21 Current Treatment Number: 13 Treatment: Maintenance Interval Clinical Notes: pt doing well now on latuda much more stable no complaints of depression si ECT Settings Device: THYMATRON DGx Electrode Placement: Right Unilateral Program/Pulse Width: 0.25 Energy Percent: 35 Seizure Duration By EEG (in seconds): 69 Medications Administration General Anesthetic: Etomidate (16) Muscle Relaxant: Succinylcholine (100) Ancillary Medications Anti-emetics: Zofran - Pre ECT Miscillaneous Medications: Propofol (30) Airway Management Airway Management: Bag Mask Ventilation (oral pharyngeal) Treatment Recommendations No Changes Recommended: No change Notes: f/u 3-4 weeks doing well no c/o cognitive side effects Pt Tolerated Procedure w/o Issue: Yes
== END 2021-07-03 08:52 | disposition home or self-care (01) ==
PROVIDERS: PCP Physician Assistant; Visit Provider Psychiatry & Neurology Psychiatry
PROC: (CPT 90870; principal; 2021-07-03 07:00)
DX: F31.81 Bipolar II disorder (principal); F43.12 Post-traumatic stress disorder, chronic; I10 Essential (primary) hypertension; E11.9 Type 2 diabetes mellitus without complications; Z79.84 Long term (current) use of oral hypoglycemic drugs; Z79.899 Other long term (current) drug therapy; Z88.8 Allergy status to other drugs, medicaments and biological substances; Z85.828 Personal history of other malignant neoplasm of skin; Z85.528 Personal history of other malignant neoplasm of kidney; Z20.822 Contact with and (suspected) exposure to COVID-19; F17.210 Nicotine dependence, cigarettes, uncomplicated
CPT/HCPCS: 87635; 90870; J0330; J2405

== ENCOUNTER 2021-07-24 12:03 | Day surgery (SDC) | payer OTHER, SELFPAY ==
[2021-07-24] VITALS (7 sets, daily range): BP systolic 112–153; BP diastolic 71–86; PULSE 75–96; RESP 16–28; TEMP 36.6; O2SAT 94–97; BMI 27.3
--- NOTE | 2021-07-24 10:31 | HO.ANESPROP2 ---
HPI - Anesthesia Eval Consult details Narrative: Bipolar 2 disorder major depression PMF Active Problems Active Problems: All Active Problems (Updated 05/09/21 @ 13:04 by Merle Blood RN) Depression (Acute) Hyperglycemia (Acute) Bipolar 2 disorder, major depressive episode (Acute) PTSD (post-traumatic stress disorder) (Acute) Chronic post-traumatic stress disorder (PTSD) (Acute) Past Medical History Medical History (Updated 05/09/21 @ 13:04 by Merle Blood RN) Acute post-traumatic stress disorder Anxiety Benign neoplasm of adrenal gland Chronic post-traumatic stress disorder (PTSD) COPD (chronic obstructive pulmonary disease) Depression Diabetes mellitus History of renal cell carcinoma Hyperlipidemia Hypertension Hypothyroidism PTSD (post-traumatic stress disorder) Squamous cell carcinoma of skin Family History Family history of problems with anesthesia: No Surgical History Surgical History Hx of foot surgery History of Problems with Anesthesia: No Social History Social History Household Members: Spouse, Children and Other Household Members Other:: Mother in -law Housing: House Do you presently have visiting nurse or other home services: No Patient Tobacco Use Status: Current everyday Tobacco user Tobacco use type: Cigarette Cigarette Packs Per Day: 1 Cigarettes Per Day: 20.0 Years Smoked: 32 Second Hand Smoke Exposure: Yes Substance Use Type: Marijuana service: Yes (Honorable discharge from Service as [employer]) Sexual orientation: Did not discuss Meds Allergies Allergy/AdvReac Type Severity Reaction Status Date / Time NSAIDS (Non-Steroidal AdvReac Severe Shakiness Verified 04/04/21 11:52 Anti-Inflamma aspirin AdvReac Intermediate Shortness Verified 04/04/21 11:52 of Breath bupropion [From Wellbutrin] AdvReac Intermediate Agitated Verified 04/04/21 11:52 Home Medications Medication Instructions Recorded Confirmed Last Taken Type clonidine HCl 0.1 mg tablet 1 tab PO BEDTIME 04/03/21 04/25/21 04/24/21 07:00 History levothyroxine 150 mcg tablet 150 mcg PO DAILY@0600 04/03/21 04/25/21 04/25/21 07:00 History lisinopril 5 mg tablet 1 tab PO DAILY 04/03/21 04/25/21 04/25/21 07:00 History omeprazole 20 mg capsule,delayed 1 cap PO BID 04/03/21 04/25/21 04/25/21 07:00 History release prazosin 1 mg capsule 2 mg PO BEDTIME 04/03/21 04/25/21 04/24/21 21:00 History prazosin 5 mg capsule 5 mg PO BEDTIME 04/03/21 04/25/21 04/24/21 21:00 History sildenafil 100 mg tablet 1 tab PO DAILY PRN 04/03/21 04/25/21 Unknown History tamsulosin 0.4 mg capsule 2 cap PO BEDTIME 04/03/21 04/25/21 04/24/21 21:00 History Exam Exam Date and Time: July 24, 2021 1031 Airway Mallampati Class: II TM Dist: >3cm Neck ROM: Full Denture: Upper and Lower Heart: [id number] Lungs: cta b/l Assessment and Plan Assessment Anesthesia Assessment: Anesthesia Plan Discussed and Chart Reviewed Final Anesthetic Review Family History of Problems with Anesthesia: No History of Problems with Anesthesia: No NPO: Yes ASA Class: III Final Preanesthetic Review: No Changes in Pt Med Stat, Meds/Allgs Chart Reviewed, Consent Obtained/Reviewed and Anes Risks/Benef Reviewed Patient Risk: Intermediate Procedure Risk: Intermediate Assessment/Block/Sedation in SS: Assess/Block/Sedation-SS Anesthetic Plan Anesthetic Plan: GA and Agree w/ Assess. and Plan Disposition: Standard PACU
[2021-07-24 12:51] LABS: COVID-19 Test Negative (Negative)
--- NOTE | 2021-07-24 13:06 | MHC.SHP ---
Pre-Procedural Eval Section A Date of Service: 07/24/21 Section B Chief Complaint: depression Details of Present Illness: recurrent bipolar dep doing well Relevant Social History: None Present Medications: see Short Stay Collaborative assessment (latuda 20 mg) History of Previous Operations: Relevant previous surgery/procedure and date(s) (ect) Allergies: Allergies Allergy/AdvReac Type Severity Reaction Status Date / Time NSAIDS (Non-Steroidal AdvReac Severe Shakiness Verified 04/04/21 11:52 Anti-Inflamma aspirin AdvReac Intermediate Shortness Verified 04/04/21 11:52 of Breath bupropion [From Wellbutrin] AdvReac Intermediate Agitated Verified 04/04/21 11:52 Review of Systems Sugical H&P ROS: Negative: Constitution, Cardiovascular, Respiratory and Neurological Exam Surgical H&P Exam: Normal: Heart, Normal: Lungs (clear no sob ) and Normal: Neurological Plan Diagnosis/Plan: Unchanged I have reviewed the history and physical and performed a pertinent physical examination on my patient. No changes have occurred unless specified.
--- NOTE | 2021-07-24 13:24 | HO.ECTPROC ---
ECT Procedure Note Diagnosis/Treatment Date of Service: 07/24/21 Diagnosis: Bipolar disorder Previous ECT Date: 07/03/21 Current Treatment Number: 14 Treatment: Maintenance Interval Clinical Notes: pt stable doing well looking to move to [place] on latuda 20 mg ECT Settings Device: THYMATRON DGx Electrode Placement: Right Unilateral Program/Pulse Width: 0.25 Energy Percent: 30 Seizure Duration By EEG (in seconds): 37 Medications Administration General Anesthetic: Etomidate (16) Muscle Relaxant: Succinylcholine (100) Ancillary Medications Anti-emetics: Zofran - Pre ECT Miscillaneous Medications: Propofol Airway Management Airway Management: Bag Mask Ventilation (with oral pharyngeal post ) Treatment Recommendations No Changes Recommended: No change Notes: pt may be moving with fanily to [place] unclear exactly when Pt Tolerated Procedure w/o Issue: Yes
== END 2021-07-24 14:28 | disposition home or self-care (01) ==
PROVIDERS: PCP Physician Assistant; Visit Provider Psychiatry & Neurology Psychiatry
PROC: (CPT 90870; principal; 2021-07-24 13:00)
DX: F31.81 Bipolar II disorder (principal); F43.12 Post-traumatic stress disorder, chronic; J44.9 Chronic obstructive pulmonary disease, unspecified; E11.9 Type 2 diabetes mellitus without complications; Z79.84 Long term (current) use of oral hypoglycemic drugs; Z79.899 Other long term (current) drug therapy; Z88.8 Allergy status to other drugs, medicaments and biological substances; F17.210 Nicotine dependence, cigarettes, uncomplicated; Z20.822 Contact with and (suspected) exposure to COVID-19
CPT/HCPCS: 87635; 90870; J0330; J2405